=== PATIENT | female | born 1940 | race Caucasian/White ===

== ENCOUNTER → 2016-08-22 | Outpatient (CLI) | payer MEDICARE ==
[~2016-08-22] MED LIST: ACID1TAB PO; ALB0.5V NEB; ALBU2.5V4 IH; ALBU8.5H2 IH; ALBUTEROL INHALER; ALBUTEROL NEBS IH; ALPR0.25 PO; ALPR0.254 PO; ALPR0.5T PO; BARIUM SUSPENSION 2.1% (VANILLA SILQ) 450 ML PO ONE; BUDE10.2 IH; BUDE10.22 IH; BUDE6HFA IH; CATHETER FLUSH 10 ML SYR IV PRN; CODE118S2 PO; CPR500T PO; DIPH25TA65 PO; EZET1TAB15 PO; EZET1TAB29 PO; HYDR-3812 PO; HYOS0.1218 SL; IOHEXOL 350 MG/ML 100 ML (OMNIPAQUE 350) VIAL IV ONE; IPRA3AMP19 IH; L.AC1CAP6 PO; LEVO500T2 PO; LEVO50TA6 PO; LEVO750T39 PO; LEVO750T6 PO; LISI10TA2 PO; LISI2.5T PO; LORA2ORA PO; LVT.05T PO; METF500T4 PO; METFORMIN; METH5TAB86 PO; MORP100S3 PO; MTF500T PO; NS 100 ML (IVPB) BAG IV ONE; OMNICEF; PHENERGAN W/CODEINE; PRCD5U PO; PRD10T PO; PRD20T PO; PREDNISONE; RT-ALBUINH INH; SIME80TA PO; TIOT18CA IH; [UNRECOGNIZED DRUG - OTHER]
--- OUTSIDE RECORDS SUMMARY | 2016-08-22 13:27 | XMS REPORT | Continuity of Care Document ---
Author Author [facility] Organization [facility] Address Unknown Phone Unavailable Care Team Providers Care Hypoid Gear Generator Name Role Phone KERON RONDON DO PCP Insurance Providers Payer Name Policy Number Subscriber Name Relationship Wps Medicare [id number] Mirza Maxwell 18 Self / Same As Patient Self Pay Fin Bulb Planter Review [phone] Mirza Maxwell 18 Self / Same As Patient Advance Directives Directive Response Recorded Date/Time Advance Directives No 10/10/15 3:29pm Health Care Power of Lone Lead Lineman Kendall ТАТЬЯНА CARDOZOELDA MORENO 10/10/15 3:29pm Organ [...] 2 (500MG) TABS IN AM 05/02/11 Tiotropium [place] 18 Mcg 1 Cap Inhalation Daily @ [...] Discharge/Depart Date Attending Provider Discharged Recurring [facility] 02/28/16 10:02am 11:59pm ANIKET DIMAS Registered Clinic [facility] 02/22/16 10:00am RAMOS SWEENEY Registered Clinic [facility] 02/15/16 9:41am RAMOS SWEENEY
--- NOTE | 2016-08-22 14:30 | Diagnostic Imaging Report ---
PROCEDURE: CT chest and abdomen with contrast. TECHNIQUE: Multiple contiguous axial images were obtained through the chest and abdomen after the administration of intravenous contrast. INDICATION: Followup lung cancer. Patient currently on chemotherapy. COMPARISON: CT chest and abdomen of 06/04/2016. CT CHEST: FINDINGS: The dominant right upper lobe spiculated mass has mildly decreased in size now measuring 1.8 x 3.5 cm (previously 3.6 x 2.4 cm when measured similarly). The pleural tag extending to the anterior lateral pleura with nodularity extending to the right lung apex is also unchanged. Spiculated satellite nodule in the right lower lobe has decreased in size now measuring 2.1 x 1.2 cm (previously 2.7 x 2.1 cm). Additional satellite nodule in the posterior right lower lobe has slightly decreased in size now measuring 0.4 cm (previously 0.5 cm). Densely calcified left lower lobe pulmonary granuloma is unchanged. Severe centrilobular emphysema is unchanged. No new pulmonary nodule or mass. No pleural effusion or pneumothorax. No suspicious pleural nodularity. The visualized thyroid is normal. No supraclavicular or axillary lymphadenopathy. Right hilar lymphadenopathy/perihilar mass is decreased in size now measuring 2.1 x 2.1 cm (previously 2.9 x 2.9 cm). The AP window lymph node has also decreased in size now with maximal short axis dimension of 0.7 cm (previously 1.1 cm). No new mediastinal or hilar lymphadenopathy. No juxtaphrenic lymphadenopathy. Heart is normal in size without pericardial effusion. Normal caliber thoracic aorta. IMPRESSION: Disease response within the chest characterized by decreased size of right upper lobe mass and right lower lobe pulmonary nodules. The right hilar mass or confluent lymphadenopathy has also decreased in size. CT ABDOMEN: FINDINGS: No free air or fluid within the abdomen. No evidence of new abdominal metastases. Liver enhances normally without focal mass lesion. Gallbladder and biliary system is normal. The spleen and pancreas are normal. Decreased nodular thickening of the left adrenal gland now measuring 3.1 x 0.8 cm (previously 3.8 x 1.2 cm). Redemonstration of horseshoe kidney. No focal renal mass lesion. No abdominal lymphadenopathy. Normal caliber abdominal aorta. No bowel obstruction in the upper abdomen. No pericolonic inflammatory changes. Atherosclerotic calcifications. No concerning osseous lesions in the abdomen. IMPRESSION: Disease response in the abdomen with decreased soft tissue thickening of the left adrenal gland. Dictated by: Dictated on workstation # [id number]
== END ==
LOC: RAD 13:24
PROVIDERS: ATTEND Nurse Practitioner Adult Health
DX: C34.11 Malignant neoplasm of upper lobe, right bronchus or lung (principal)
CPT/HCPCS: 71260; 74160

== ENCOUNTER 2016-08-29 13:25 | Outpatient (RCR) | payer MEDICARE, OTHER ==
--- OUTSIDE RECORDS SUMMARY | 2016-06-02 10:52 | XMS REPORT | Continuity of Care Document ---
Author Author [facility] Organization [facility] Address Unknown Phone Unavailable Care Team Providers Care Cloth Examiner Machine Name Role Phone KERON RONDON DO PCP Insurance Providers Payer Name Policy Number Subscriber Name Relationship Wps Medicare [id number] Mirza Maxwell 18 Self / Same As Patient Self Pay Fin Corporate Coordinator Review [phone] Mirza Maxwell 18 Self / Same As Patient Advance Directives Directive Response Recorded Date/Time Advance Directives No 10/10/15 3:29pm Health Care Power of Spinner Cap Frame Kendall ТАТЬЯНА CARDOZOELDA MORENO 10/10/15 3:29pm Organ Donor No 10/10/15 3:29pm Problems Active Problems Medical Problem Onset Date Status ACUTE ON CHRONIC RESPIRATORY FAILURE Unknown Acute Closed head injury Unknown Acute Laceration of occipital region of scalp Unknown Acute RUL MASS Unknown Acute Subarachnoid hemorrhage Unknown Acute Medications Current Home Medications Medication Dose Units Route Directions Days/Qty Instructions Start Date Metformin Hcl (Glucophage) 500 Mg 1,000 Mg Oral Daily TAKE 2 (500MG) TABS IN AM 05/02/11 Tiotropium [place] 18 Mcg 1 Cap Inhalation Daily @ 1400 12/16/13 Ezetimibe/Simvastatin 1 Each 1 Tab Oral Bedtime 04/29/15 Metformin Hcl 500 Mg 500 Mg Oral With Evening Meal 05/10/15 Promethazine Hcl/Codeine 118 Ml 2 Tsp Oral Three Times A Day Albuterol Sulfate 2.5 Mg/0.5 Ml 2.5 Mg Inhalation Every 4HRS as needed for Shortness Of Breath 06/28/15 Budesonide/Formoterol Fumarate 10.2 Gm 2 Puff Inhalation Twice A Day 06/28/15 Levothyroxine Sodium 50 Mcg 50 Mcg Oral Daily 06/28/15 Alprazolam 0.25 Mg 0.25 Mg Oral Three Times A Day as needed for Anxiety 06/28/15 Lisinopril 10 Mg 10 Mg Oral Bedtime 06/28/15 Prednisone 20 Mg 20 Mg Oral Daily 7 10/07/15 Past Home Medications Medication Directions Ordered Status [Metformin] , 10/20/07 Discontinued [Omnicef] , 10/20/07 Discontinued [Phenergan W/Codeine] , 10/20/07 Discontinued [Prednisone] , 10/20/07 Discontinued [Albuterol Inhaler] , as needed 10/20/07 Discontinued [Albuterol Nebs] , Inhalation Four Times Daily 10/20/07 Discontinued [Ciprro Inhaler] , 08/19/11 Discontinued Levofloxacin 750 Mg Tablet, 750 Mg Oral Daily 08/19/11 Discontinued Albuterol 8.5 Gm Hfa.aer.ad, 2 Puff Inhalation Every 4HRS as needed for Shortness Of Breath 12/16/13 Discontinued Albuterol Sulfate 0.83 Mg/Ml Solution, 0.83 Mg Inhalation Every 4HRS as needed for Shortness Of Breath 12/16/13 Discontinued Budesonide/Formoterol Fumarate 10.2 Gm Hfa.aer.ad, 2 Puff Inhalation Twice A Day 12/16/13 Discontinued Lisinopril 10 Mg Tablet, 10 Mg Oral Bedtime 12/16/13 Discontinued Levothyroxine Sodium (Levothroid) 50 Mcg Tablet, 50 Mcg Oral Daily 12/16/13 Discontinued Ezetimibe/Simvastatin 1 Each Tablet, 1 Each Oral Daily 12/16/13 Discontinued Albuterol Sulfate/Ipratropium 3 Ml Solution, 3 Ml Inhalation Four Times Daily as needed for Cough 12/16/13 Discontinued Prednisone 20 Mg Tab, 40 Mg Oral Daily for Cough 12/16/13 Discontinued Levothyroxine Sodium 50 Mcg Tablet, 50 Mcg Oral Daily 04/29/15 Discontinued Alprazolam 0.25 Mg Tablet, 0.75 Mg Oral Three Times A Day as needed for Anxiety 04/29/15 Discontinued Diphenhydramine Hcl 25 Mg Tablet, 25 Mg Oral Three Times A Day as needed for Allergy 04/29/15 Discontinued Levofloxacin 750 Mg Tablet, 750 Mg Oral Daily@1100 05/02/15 Discontinued Prednisone 10 Mg Tab, 50 Mg Oral Daily 05/02/15 Discontinued L.acidoph & Paracasei,B.lactis 1 Each Capsule, 1 Each Oral Four Times Daily 05/02/15 Discontinued Prednisone 20 Mg Tab, 20 Mg Oral Daily 05/10/15 Discontinued L. Acidophilus/Bulgaricus 1 Each Tablet, 2 Each Oral Daily 05/10/15 Discontinued Simethicone 80 Mg Tab.chew, 160 Mg Oral Daily as needed for Gas 05/10/15 Discontinued Promethazine Hcl/Codeine 118 Ml Syrup, 2 Tsp Oral Three Times A Day 05/12/15 Discontinued Alprazolam 0.5 Mg Tablet, 0.5 Mg Oral Every 6 Hours 05/12/15 Discontinued Alprazolam 0.25 Mg Tablet, 0.25 Mg Oral Three Times A Day 06/23/15 Discontinued Social History Social History Problem Response Recorded Date/Time Alcohol Use Denies Use 10/10/2015 3:29pm Recreational Drug Use No 10/10/2015 3:29pm Recent Foreign Travel N SEE [place] 12/13/2015 9:57am Sexually Transmitted Disease No 10/10/2015 3:29pm HIV/AIDS No 10/10/2015 3:29pm Do you dip or chew tobacco? No 10/10/2015 3:29pm Hospital Discharge Instructions No hospital discharge instructions. Plan of Care Prescriptions See Medication Section Functional Status No functional status results. Allergies, Adverse Reactions, Alerts Allergen Type Severity Reaction Status Last Updated Benzonatate Allergy Unknown Active 06/27/15 Cephalexin Allergy Unknown Active 06/27/15 Immunizations Name Given Type Date of Pneumonia Vaccine 05/22/12 Historical Date of Influenza Vaccine 05/27/15 Historical Hepatitis A No Historical Hepatitis B No Historical Tetanus Booster (TDap) Unknown Historical Vital Signs Acute Vital Signs Vital Response Date/Time Height 5 ft 4 in Weight 90 lb Body Mass Index 15.4 kg/m^2 Results Laboratory Results Test Name Result Units Flags Reference Collection Date/Time Result Date/ Time Comments White Blood Count 4.9 10^3/uL 4.3-11.0 02/28/2016 10:20am 02/28/2016 10 :31am Red Blood Count 3.40 10^6/uL L 4.35-5.85 02/28/2016 10:02/28/2016 10 :31am Hemoglobin 11.5 G/DL 11.5-16.0 02/28/2016 10:02/28/2016 10:31am Hematocrit 34 % L 35-52 02/28/2016 10:02/28/2016 10:31am Mean Corpuscular Volume 101 FL H 80-99 02/28/2016 10:02/28/2016 10: 31am Mean Corpuscular Hemoglobin 34 PG 25-34 02/28/2016 10:02/28/2016 10:31am Mean Corpuscular Hemoglobin Concent 33 G/DL 32-36 02/28/2016 10: 10:31am Red Cell Distribution Width 14.7 % H 10.0-14.5 02/28/2016 10:2015 10:31am Platelet Count 219 10^3/uL 130-400 02/28/2016 10:02/28/2016 10: 31am Mean Platelet Volume 8.4 FL 7.4-10.4 02/28/2016 10:02/28/2016 10: 31am Neutrophils (%) (Auto) 52 % 42-75 02/28/2016 10:02/28/2016 10: 31am Lymphocytes (%) (Auto) 35 % 12-44 02/28/2016 10:02/28/2016 10: 31am Monocytes (%) (Auto) 11 % 0-12 02/28/2016 10:02/28/2016 10:31am Eosinophils (%) (Auto) 2 % 0-10 02/28/2016 10:02/28/2016 10:31am Basophils (%) (Auto) 1 % 0-10 02/28/2016 10:02/28/2016 10:31am Neutrophils # (Auto) 2.5 X 10^3 1.8-7.8 02/28/2016 10:02/28/2016 10:31am Lymphocytes # (Auto) 1.7 X 10^3 1.0-4.0 02/28/2016 10:02/28/2016 10:31am Monocytes # (Auto) 0.6 X 10^3 0.0-1.0 02/28/2016 10:02/28/2016 10: 31am Eosinophils # (Auto) 0.1 10^3/uL 0.0-0.3 02/28/2016 10:02/28/2016 10:31am Basophils # (Auto) 0.0 10^3/uL 0.0-0.1 02/28/2016 10:02/28/2016 10 :31am Sodium Level 134 MMOL/L L 135-145 02/28/2016 10:02/28/2016 11:06am Potassium Level 4.3 MMOL/L 3.6-5.0 02/28/2016 10:02/28/2016 11: 06am Chloride Level 103 MMOL/L 98-107 02/28/2016 10:02/28/2016 11:06am Carbon Dioxide Level 25 MMOL/L 21-32 02/28/2016 10:02/28/2016 11: 06am Anion Gap 6 MMOL/L 5-14 02/28/2016 10:02/28/2016 11:06am Blood Urea Nitrogen 11 MG/DL 7-18 02/28/2016 10:02/28/2016 11: 06am Creatinine 0.61 MG/DL 0.60-1.30 02/28/2016 10:02/28/2016 11:06am BUN/Creatinine Ratio 18 02/28/2016 10:02/28/2016 11:06am Estimat Glomerular Filtration Rate > 60 02/28/2016 10:2015 11:06am GFR INTERPRETIVE DATA UNITS FOR ESTIMATED GFR (eGFR): mL/min/1.73 M2 REFERENCE RANGE FOR ESTIMATED GFR (eGFR) eGFR NORMAL eGFR >60 MODERATELY DECREASED eGFR 30-59 SEVERLY DECREASED eGFR 15-29 KIDNEY FAILURE <15 (OR DIALYSIS) Glucose Level 68 MG/DL L 70-105 02/28/2016 10:02/28/2016 11:06am Calcium Level 8.9 MG/DL 8.5-10.1 02/28/2016 10:02/28/2016 11:06am Magnesium Level 2.1 MG/DL 1.8-2.4 02/28/2016 10:22am 02/28/2016 11: 06am Total Bilirubin 0.3 MG/DL 0.1-1.0 12/27/2015 11:06am 12/27/2015 11: 41am Alkaline Phosphatase 51 U/L 40-136 12/27/2015 11:06am 12/27/2015 11: 41am Aspartate Amino Transf (AST/SGOT) 15 U/L 5-34 12/27/2015 11:06am 2015 11:41am Alanine Aminotransferase (ALT/SGPT) 8 U/L 0-55 12/27/2015 11:06am 12/26 11:41am Total Protein 6.6 G/DL 6.4-8.2 12/27/2015 11:06am 12/27/2015 11:41am Albumin 3.8 G/DL 3.2-4.5 12/27/2015 11:06am 12/27/2015 11:41am Pending Laboratory Results Test Name Collection Date/Time Procedures No known history of procedures. Encounters Encounter Location Arrival/Admit Date Discharge/Depart Date Attending Provider Discharged Recurring [facility] 02/28/16 10:02am 11:59pm ANIKET DIMAS Registered Clinic [facility] 02/22/16 10:00am RAMOS SWENEEY Registered Clinic [facility] 02/15/16 9:41am RAMOS SWEENEY
[2016-06-02 11:47] LABS: BASOPHILS # (AUTO) 0.1 10^3/uL (0.0-0.1); BASOPHILS % (AUTO) 1 % (0-10); EOSINOPHILS # (AUTO) 0.2 10^3/uL (0.0-0.3); EOSINOPHILS % (AUTO) 4 % (0-10); LYMPHOCYTES # (AUTO) 1.5 X 10^3 (1.0-4.0); LYMPHOCYTES % (AUTO) 27 % (12-44); MEAN CORPUSCULAR HEMOGLOBIN 33 PG (25-34); MEAN CORPUSCULAR HGB CONC 34 G/DL (32-36); MEAN CORPUSCULAR VOLUME 98 FL (80-99); MEAN PLATELET VOLUME 8.8 FL (7.4-10.4); MONOCYTES # (AUTO) 0.8 X 10^3 (0.0-1.0); MONOCYTES % (AUTO) 14 % (0-12); NEUTROPHILS # (AUTO) 3.1 X 10^3 (1.8-7.8); NEUTROPHILS % (AUTO) 54 % (42-75); PLATELET COUNT 300 10^3/uL (130-400); RED BLOOD COUNT 3.78 10^6/uL (4.35-5.85); RED CELL DISTRIBUTION WIDTH 14.2 % (10.0-14.5); WHITE BLOOD COUNT 5.6 10^3/uL (4.3-11.0)
[2016-06-02 12:07] LABS: ALANINE AMINOTRANSFERASE 10 U/L (0-55); ALBUMIN 3.8 G/DL (3.2-4.5); ANION GAP 7 MMOL/L (5-14); ASPARTATE AMINO TRANSFERASE 11 U/L (5-34); BILIRUBIN,TOTAL 0.4 MG/DL (0.1-1.0); BLOOD UREA NITROGEN 8 MG/DL (7-18); BUN/CREATININE RATIO 12; CALCIUM 9.1 MG/DL (8.5-10.1); CARBON DIOXIDE 27 MMOL/L (21-32); CHLORIDE 101 MMOL/L (98-107); CREATININE SERUM 0.65 MG/DL (0.60-1.30); GFR ESTIMATED > 60; GLUCOSE 112 MG/DL (70-105); MAGNESIUM 2.2 MG/DL (1.8-2.4); SODIUM 135 MMOL/L (135-145); TOTAL PROTEIN 7.2 G/DL (6.4-8.2)
[2016-06-12 10:51] LABS: BASOPHILS % (AUTO) 1 % (0-10); EOSINOPHILS # (AUTO) 0.1 10^3/uL (0.0-0.3); EOSINOPHILS % (AUTO) 4 % (0-10); LYMPHOCYTES # (AUTO) 1.3 X 10^3 (1.0-4.0); LYMPHOCYTES % (AUTO) 39 % (12-44); MEAN CORPUSCULAR HEMOGLOBIN 32 PG (25-34); MEAN CORPUSCULAR HGB CONC 32 G/DL (32-36); MEAN CORPUSCULAR VOLUME 98 FL (80-99); MONOCYTES # (AUTO) 0.2 X 10^3 (0.0-1.0); MONOCYTES % (AUTO) 5 % (0-12); NEUTROPHILS # (AUTO) 1.8 X 10^3 (1.8-7.8); NEUTROPHILS % (AUTO) 52 % (42-75); PLATELET COUNT 214 10^3/uL (130-400); RED BLOOD COUNT 3.46 10^6/uL (4.35-5.85); WHITE BLOOD COUNT 3.3 10^3/uL (4.3-11.0)
[2016-06-12 11:18] LABS: ANION GAP 8 MMOL/L (5-14); BLOOD UREA NITROGEN 11 MG/DL (7-18); BUN/CREATININE RATIO 19; CALCIUM 8.8 MG/DL (8.5-10.1); CARBON DIOXIDE 25 MMOL/L (21-32); CHLORIDE 104 MMOL/L (98-107); CREATININE SERUM 0.59 MG/DL (0.60-1.30); GFR ESTIMATED > 60; GLUCOSE 92 MG/DL (70-105); POTASSIUM 4.1 MMOL/L (3.6-5.0); SODIUM 137 MMOL/L (135-145)
[2016-06-19 10:24] LABS: BASOPHILS % (AUTO) 0 % (0-10); EOSINOPHILS % (AUTO) 1 % (0-10); LYMPHOCYTES # (AUTO) 1.4 X 10^3 (1.0-4.0); LYMPHOCYTES % (AUTO) 30 % (12-44); MEAN CORPUSCULAR HEMOGLOBIN 32 PG (25-34); MEAN CORPUSCULAR HGB CONC 33 G/DL (32-36); MEAN CORPUSCULAR VOLUME 97 FL (80-99); MEAN PLATELET VOLUME 7.9 FL (7.4-10.4); MONOCYTES # (AUTO) 0.3 X 10^3 (0.0-1.0); MONOCYTES % (AUTO) 7 % (0-12); NEUTROPHILS # (AUTO) 2.9 X 10^3 (1.8-7.8); NEUTROPHILS % (AUTO) 62 % (42-75); PLATELET COUNT 72 10^3/uL (130-400); RED BLOOD COUNT 3.29 10^6/uL (4.35-5.85); WHITE BLOOD COUNT 4.6 10^3/uL (4.3-11.0)
[2016-06-19 10:49] LABS: ANION GAP 7 MMOL/L (5-14); BLOOD UREA NITROGEN 10 MG/DL (7-18); BUN/CREATININE RATIO 16; CALCIUM 8.9 MG/DL (8.5-10.1); CARBON DIOXIDE 27 MMOL/L (21-32); CHLORIDE 102 MMOL/L (98-107); CREATININE SERUM 0.63 MG/DL (0.60-1.30); GFR ESTIMATED > 60; GLUCOSE 105 MG/DL (70-105); POTASSIUM 4.2 MMOL/L (3.6-5.0); SODIUM 136 MMOL/L (135-145)
[2016-06-26 10:30] LABS: BASOPHILS % (AUTO) 0 % (0-10); EOSINOPHILS # (AUTO) 0.1 10^3/uL (0.0-0.3); EOSINOPHILS % (AUTO) 2 % (0-10); LYMPHOCYTES # (AUTO) 1.4 X 10^3 (1.0-4.0); LYMPHOCYTES % (AUTO) 22 % (12-44); MEAN CORPUSCULAR HEMOGLOBIN 32 PG (25-34); MEAN CORPUSCULAR HGB CONC 33 G/DL (32-36); MEAN CORPUSCULAR VOLUME 98 FL (80-99); MEAN PLATELET VOLUME 8.8 FL (7.4-10.4); MONOCYTES # (AUTO) 0.8 X 10^3 (0.0-1.0); MONOCYTES % (AUTO) 13 % (0-12); NEUTROPHILS # (AUTO) 3.8 X 10^3 (1.8-7.8); NEUTROPHILS % (AUTO) 63 % (42-75); PLATELET COUNT 332 10^3/uL (130-400); RED BLOOD COUNT 3.49 10^6/uL (4.35-5.85); RED CELL DISTRIBUTION WIDTH 15.4 % (10.0-14.5)
[2016-06-26 10:59] LABS: ALANINE AMINOTRANSFERASE 8 U/L (0-55); ALBUMIN 3.7 G/DL (3.2-4.5); ANION GAP 9 MMOL/L (5-14); ASPARTATE AMINO TRANSFERASE 10 U/L (5-34); BILIRUBIN,TOTAL 0.3 MG/DL (0.1-1.0); BLOOD UREA NITROGEN 10 MG/DL (7-18); BUN/CREATININE RATIO 15; CARBON DIOXIDE 24 MMOL/L (21-32); CHLORIDE 102 MMOL/L (98-107); CREATININE SERUM 0.67 MG/DL (0.60-1.30); GFR ESTIMATED > 60; GLUCOSE 86 MG/DL (70-105); SODIUM 135 MMOL/L (135-145); TOTAL PROTEIN 7.3 G/DL (6.4-8.2)
--- NOTE | 2016-06-26 16:29 | Diagnostic Imaging Report ---
PA and lateral views of the chest. INDICATION: Cough. Chronic bronchitis. FINDINGS: The lungs are hyperinflated. There is a calcified granuloma in the left suprahilar region. There is fullness in the right hilum appears increased from the prior exam with suggestion of a corresponding nodule seen on the lateral view which appears to be within the superior segment of the right lower lobe. This is new from 10/10/2015. There is also right upper lobe nodule and scarring that appears similar to the previous exam. There is no significant effusion. The heart size is normal. No pneumothorax. Infusion port similar to the previous study is seen with the tip at the upper SVC level. IMPRESSION: New nodule in the superior segment of the right lower lobe compared to September 2015 exam, better seen on the lateral view. Dictated by: Dictated on workstation # [id number]
[2016-07-03 10:40] LABS: BASOPHILS # (AUTO) 0.1 10^3/uL (0.0-0.1); BASOPHILS % (AUTO) 1 % (0-10); EOSINOPHILS # (AUTO) 0.1 10^3/uL (0.0-0.3); EOSINOPHILS % (AUTO) 2 % (0-10); LYMPHOCYTES # (AUTO) 1.5 X 10^3 (1.0-4.0); LYMPHOCYTES % (AUTO) 28 % (12-44); MEAN CORPUSCULAR HEMOGLOBIN 32 PG (25-34); MEAN CORPUSCULAR HGB CONC 33 G/DL (32-36); MEAN CORPUSCULAR VOLUME 97 FL (80-99); MEAN PLATELET VOLUME 8.3 FL (7.4-10.4); MONOCYTES # (AUTO) 1.1 X 10^3 (0.0-1.0); MONOCYTES % (AUTO) 21 % (0-12); NEUTROPHILS # (AUTO) 2.5 X 10^3 (1.8-7.8); NEUTROPHILS % (AUTO) 47 % (42-75); PLATELET COUNT 442 10^3/uL (130-400); RED BLOOD COUNT 3.47 10^6/uL (4.35-5.85); RED CELL DISTRIBUTION WIDTH 14.7 % (10.0-14.5); WHITE BLOOD COUNT 5.4 10^3/uL (4.3-11.0)
[2016-07-03 11:02] LABS: ANION GAP 8 MMOL/L (5-14); BLOOD UREA NITROGEN 9 MG/DL (7-18); BUN/CREATININE RATIO 15; CALCIUM 9.9 MG/DL (8.5-10.1); CARBON DIOXIDE 25 MMOL/L (21-32); CHLORIDE 102 MMOL/L (98-107); CREATININE SERUM 0.62 MG/DL (0.60-1.30); GFR ESTIMATED > 60; GLUCOSE 90 MG/DL (70-105); POTASSIUM 4.2 MMOL/L (3.6-5.0); SODIUM 135 MMOL/L (135-145)
[2016-07-10 10:19] LABS: BASOPHILS % (AUTO) 0 % (0-10); EOSINOPHILS % (AUTO) 1 % (0-10); LYMPHOCYTES # (AUTO) 1.5 X 10^3 (1.0-4.0); LYMPHOCYTES % (AUTO) 26 % (12-44); MEAN CORPUSCULAR HEMOGLOBIN 32 PG (25-34); MEAN CORPUSCULAR HGB CONC 33 G/DL (32-36); MEAN CORPUSCULAR VOLUME 95 FL (80-99); MONOCYTES # (AUTO) 0.6 X 10^3 (0.0-1.0); MONOCYTES % (AUTO) 10 % (0-12); NEUTROPHILS # (AUTO) 3.6 X 10^3 (1.8-7.8); NEUTROPHILS % (AUTO) 63 % (42-75); PLATELET COUNT 292 10^3/uL (130-400); RED BLOOD COUNT 3.46 10^6/uL (4.35-5.85); RED CELL DISTRIBUTION WIDTH 14.8 % (10.0-14.5); WHITE BLOOD COUNT 5.7 10^3/uL (4.3-11.0)
[2016-07-10 10:47] LABS: ANION GAP 10 MMOL/L (5-14); BLOOD UREA NITROGEN 10 MG/DL (7-18); BUN/CREATININE RATIO 15; CALCIUM 8.8 MG/DL (8.5-10.1); CARBON DIOXIDE 24 MMOL/L (21-32); CHLORIDE 101 MMOL/L (98-107); CREATININE SERUM 0.65 MG/DL (0.60-1.30); GFR ESTIMATED > 60; GLUCOSE 123 MG/DL (70-105); POTASSIUM 3.9 MMOL/L (3.6-5.0); SODIUM 135 MMOL/L (135-145)
[2016-07-17 10:20] LABS: BASOPHILS % (AUTO) 1 % (0-10); EOSINOPHILS % (AUTO) 1 % (0-10); LYMPHOCYTES # (AUTO) 1.6 X 10^3 (1.0-4.0); LYMPHOCYTES % (AUTO) 25 % (12-44); MEAN CORPUSCULAR HEMOGLOBIN 31 PG (25-34); MEAN CORPUSCULAR HGB CONC 32 G/DL (32-36); MEAN CORPUSCULAR VOLUME 96 FL (80-99); MEAN PLATELET VOLUME 8.6 FL (7.4-10.4); MONOCYTES # (AUTO) 0.7 X 10^3 (0.0-1.0); MONOCYTES % (AUTO) 11 % (0-12); NEUTROPHILS # (AUTO) 3.9 X 10^3 (1.8-7.8); NEUTROPHILS % (AUTO) 63 % (42-75); PLATELET COUNT 183 10^3/uL (130-400); RED BLOOD COUNT 3.69 10^6/uL (4.35-5.85); RED CELL DISTRIBUTION WIDTH 15.7 % (10.0-14.5); WHITE BLOOD COUNT 6.2 10^3/uL (4.3-11.0)
[2016-07-17 10:58] LABS: BILIRUBIN,URINE NEGATIVE (NEGATIVE); KETONES,URINE NEGATIVE (NEGATIVE); LEUKOCYTE ESTERASE ,URINE NEGATIVE (NEGATIVE); NITRITE,URINE NEGATIVE (NEGATIVE); PH,URINE 6.5 (5-9); PROTEIN,URINE NEGATIVE (NEGATIVE); UROBILINOGEN,URINE NORMAL (NORMAL)
[2016-07-17 11:16] LABS: SQUAMOUS EPITHELIAL CELL,UR RARE /HPF
[2016-07-17 11:23] LABS: ANION GAP 11 MMOL/L (5-14); BLOOD UREA NITROGEN 9 MG/DL (7-18); BUN/CREATININE RATIO 14; CARBON DIOXIDE 23 MMOL/L (21-32); CHLORIDE 102 MMOL/L (98-107); CREATININE SERUM 0.63 MG/DL (0.60-1.30); GFR ESTIMATED > 60; GLUCOSE 81 MG/DL (70-105); POTASSIUM 4.1 MMOL/L (3.6-5.0); SODIUM 136 MMOL/L (135-145)
[2016-07-24 11:34] LABS: BASOPHILS % (AUTO) 0 % (0-10); EOSINOPHILS # (AUTO) 0.2 10^3/uL (0.0-0.3); EOSINOPHILS % (AUTO) 2 % (0-10); LYMPHOCYTES # (AUTO) 1.7 X 10^3 (1.0-4.0); LYMPHOCYTES % (AUTO) 19 % (12-44); MEAN CORPUSCULAR HEMOGLOBIN 31 PG (25-34); MEAN CORPUSCULAR HGB CONC 33 G/DL (32-36); MEAN CORPUSCULAR VOLUME 96 FL (80-99); MEAN PLATELET VOLUME 8.5 FL (7.4-10.4); MONOCYTES % (AUTO) 11 % (0-12); NEUTROPHILS # (AUTO) 6.2 X 10^3 (1.8-7.8); NEUTROPHILS % (AUTO) 68 % (42-75); PLATELET COUNT 513 10^3/uL (130-400); RED BLOOD COUNT 3.49 10^6/uL (4.35-5.85); RED CELL DISTRIBUTION WIDTH 16.5 % (10.0-14.5); WHITE BLOOD COUNT 9.1 10^3/uL (4.3-11.0)
[2016-07-24 12:06] LABS: ALANINE AMINOTRANSFERASE 6 U/L (0-55); ALBUMIN 3.7 G/DL (3.2-4.5); ANION GAP 10 MMOL/L (5-14); ASPARTATE AMINO TRANSFERASE 15 U/L (5-34); BILIRUBIN,TOTAL 0.3 MG/DL (0.1-1.0); BLOOD UREA NITROGEN 7 MG/DL (7-18); BUN/CREATININE RATIO 11; CALCIUM 8.8 MG/DL (8.5-10.1); CARBON DIOXIDE 22 MMOL/L (21-32); CHLORIDE 100 MMOL/L (98-107); CREATININE SERUM 0.63 MG/DL (0.60-1.30); GFR ESTIMATED > 60; GLUCOSE 116 MG/DL (70-105); POTASSIUM 4.1 MMOL/L (3.6-5.0); SODIUM 132 MMOL/L (135-145); TOTAL PROTEIN 7.1 G/DL (6.4-8.2)
--- NOTE | 2016-07-24 13:02 | Diagnostic Imaging Report ---
EXAMINATION: PA and lateral views of the chest. INDICATION: Lung cancer with brain metastasis. FINDINGS: There is a stable left suprahilar calcified granuloma. The lungs are hyperinflated. There is stable fullness in the right hilum and suggestion of a 2 cm nodule in the superior segment of the right lower lobe, better seen on the lateral view. Chronic mild consolidation in the right upper lobe is seen. No significant effusion. The heart size is normal. An infusion port is noted. IMPRESSION: There is a 2 cm nodule in the superior segment of the right lower lobe, better seen on the lateral view. Dictated by: Dictated on workstation # [id number]
[2016-07-31 11:16] LABS: BASOPHILS % (AUTO) 1 % (0-10); EOSINOPHILS # (AUTO) 0.1 10^3/uL (0.0-0.3); EOSINOPHILS % (AUTO) 1 % (0-10); LYMPHOCYTES # (AUTO) 1.8 X 10^3 (1.0-4.0); LYMPHOCYTES % (AUTO) 31 % (12-44); MEAN CORPUSCULAR HEMOGLOBIN 31 PG (25-34); MEAN CORPUSCULAR HGB CONC 32 G/DL (32-36); MEAN CORPUSCULAR VOLUME 96 FL (80-99); MONOCYTES # (AUTO) 0.9 X 10^3 (0.0-1.0); MONOCYTES % (AUTO) 15 % (0-12); NEUTROPHILS # (AUTO) 2.9 X 10^3 (1.8-7.8); NEUTROPHILS % (AUTO) 52 % (42-75); PLATELET COUNT 356 10^3/uL (130-400); RED BLOOD COUNT 3.42 10^6/uL (4.35-5.85); RED CELL DISTRIBUTION WIDTH 16.3 % (10.0-14.5); WHITE BLOOD COUNT 5.6 10^3/uL (4.3-11.0)
[2016-07-31 11:39] LABS: ANION GAP 10 MMOL/L (5-14); BLOOD UREA NITROGEN 11 MG/DL (7-18); BUN/CREATININE RATIO 18; CALCIUM 8.9 MG/DL (8.5-10.1); CARBON DIOXIDE 24 MMOL/L (21-32); CHLORIDE 101 MMOL/L (98-107); CREATININE SERUM 0.62 MG/DL (0.60-1.30); GFR ESTIMATED > 60; POTASSIUM 4.2 MMOL/L (3.6-5.0); SODIUM 135 MMOL/L (135-145)
[2016-07-31 11:43] LABS: GLUCOSE 56 MG/DL (70-105)
[2016-08-07 10:38] LABS: BASOPHILS % (AUTO) 1 % (0-10); EOSINOPHILS % (AUTO) 1 % (0-10); LYMPHOCYTES # (AUTO) 1.4 X 10^3 (1.0-4.0); LYMPHOCYTES % (AUTO) 24 % (12-44); MEAN CORPUSCULAR HEMOGLOBIN 31 PG (25-34); MEAN CORPUSCULAR HGB CONC 33 G/DL (32-36); MEAN CORPUSCULAR VOLUME 96 FL (80-99); MEAN PLATELET VOLUME 8.8 FL (7.4-10.4); MONOCYTES # (AUTO) 0.7 X 10^3 (0.0-1.0); MONOCYTES % (AUTO) 12 % (0-12); NEUTROPHILS # (AUTO) 3.6 X 10^3 (1.8-7.8); NEUTROPHILS % (AUTO) 63 % (42-75); PLATELET COUNT 168 10^3/uL (130-400); RED BLOOD COUNT 3.49 10^6/uL (4.35-5.85); WHITE BLOOD COUNT 5.8 10^3/uL (4.3-11.0)
[2016-08-07 11:05] LABS: ANION GAP 10 MMOL/L (5-14); BLOOD UREA NITROGEN 10 MG/DL (7-18); BUN/CREATININE RATIO 16; CALCIUM 8.8 MG/DL (8.5-10.1); CARBON DIOXIDE 25 MMOL/L (21-32); CHLORIDE 102 MMOL/L (98-107); CREATININE SERUM 0.63 MG/DL (0.60-1.30); GFR ESTIMATED > 60; GLUCOSE 88 MG/DL (70-105); POTASSIUM 4.3 MMOL/L (3.6-5.0); SODIUM 137 MMOL/L (135-145)
[2016-08-15 13:40] LABS: BASOPHILS % (AUTO) 1 % (0-10); EOSINOPHILS # (AUTO) 0.1 10^3/uL (0.0-0.3); EOSINOPHILS % (AUTO) 2 % (0-10); LYMPHOCYTES # (AUTO) 1.1 X 10^3 (1.0-4.0); LYMPHOCYTES % (AUTO) 14 % (12-44); MEAN CORPUSCULAR HEMOGLOBIN 31 PG (25-34); MEAN CORPUSCULAR HGB CONC 32 G/DL (32-36); MEAN CORPUSCULAR VOLUME 97 FL (80-99); MEAN PLATELET VOLUME 8.9 FL (7.4-10.4); MONOCYTES % (AUTO) 12 % (0-12); NEUTROPHILS # (AUTO) 5.9 X 10^3 (1.8-7.8); NEUTROPHILS % (AUTO) 72 % (42-75); PLATELET COUNT 427 10^3/uL (130-400); RED BLOOD COUNT 3.43 10^6/uL (4.35-5.85); RED CELL DISTRIBUTION WIDTH 17.7 % (10.0-14.5); WHITE BLOOD COUNT 8.2 10^3/uL (4.3-11.0)
--- NOTE | 2016-08-15 13:50 | Diagnostic Imaging Report ---
INDICATION: Lung cancer and dyspnea. TECHNIQUE: PA and lateral views of the chest were obtained. COMPARISON: 07/24/2016. FINDINGS: The heart size remains within normal limits. There has been slight worsening of the abnormal parenchymal density in the upper lobe of the right lung. An irregular nodule focus in the superior segment of the right lower lobe has remained stable. A calcified nodule in the superior aspect of the left hilum has not significantly changed. No pneumothorax or significant pleural fluid is identified. The right anterior chest wall port remains in stable position. IMPRESSION: Minimal change compared to the previous study. There may be slight increased density involving the right upper lobe abnormality. This may represent a combination of residual mass and/or infiltrate. Dictated by: Dictated on workstation # [id number]
[2016-08-15 13:55] LABS: ALANINE AMINOTRANSFERASE 12 U/L (0-55); ALBUMIN 3.6 G/DL (3.2-4.5); ANION GAP 11 MMOL/L (5-14); ASPARTATE AMINO TRANSFERASE 18 U/L (5-34); BILIRUBIN,TOTAL 0.2 MG/DL (0.1-1.0); BLOOD UREA NITROGEN 10 MG/DL (7-18); BUN/CREATININE RATIO 14; CALCIUM 8.8 MG/DL (8.5-10.1); CARBON DIOXIDE 23 MMOL/L (21-32); CHLORIDE 100 MMOL/L (98-107); CREATININE SERUM 0.69 MG/DL (0.60-1.30); GFR ESTIMATED > 60; GLUCOSE 109 MG/DL (70-105); SODIUM 134 MMOL/L (135-145)
[~2016-08-29] VITALS: Ht 162.6 cm; Wt 43.5 kg
[~2016-08-29 13:25] MED LIST changes: -BARIUM SUSPENSION 2.1% (VANILLA SILQ) 450 ML PO ONE; -BUDE10.2 IH; -CATHETER FLUSH 10 ML SYR IV PRN; +GEMCITABINE HCL (GENERIC) 1,000 MG, GEMCITABINE HCL (GENERIC) 100 MG in NS (IVPB) CANCE... IV SCH; +GEMCITABINE HCL IV SCH; -HYDR-3812 PO; -HYOS0.1218 SL; -IOHEXOL 350 MG/ML 100 ML (OMNIPAQUE 350) VIAL IV ONE; -LEVO500T2 PO; -LISI2.5T PO; -LORA2ORA PO; -METH5TAB86 PO; -MORP100S3 PO; -NS 100 ML (IVPB) BAG IV ONE; +NS IV 1000 ML (CANCER CTR) 1,000 ML ONE; +NS IV 500 ML (CANCER CENTER) IV SCH; +NS IV SCH; +ONDANSETRON 16 MG, DEXAMETHASONE 10 MG/NS 50 ML IVPB IV SCH; -RT-ALBUINH INH
== END 2016-08-31 | disposition home or self-care (01) ==
LOC: ONC 13:25
PROVIDERS: ATTEND Internal Medicine Hematology & Oncology
DX: Z51.11 Encounter for antineoplastic chemotherapy (principal); C34.11 Malignant neoplasm of upper lobe, right bronchus or lung; C79.31 Secondary malignant neoplasm of brain; J44.9 Chronic obstructive pulmonary disease, unspecified; E11.9 Type 2 diabetes mellitus without complications; I10 Essential (primary) hypertension; E78.5 Hyperlipidemia, unspecified; E03.9 Hypothyroidism, unspecified; F17.210 Nicotine dependence, cigarettes, uncomplicated; Z79.899 Other long term (current) drug therapy
CPT/HCPCS: 36415; 36591; 71020; 80048; 80053; 81000; 83735; 85025; 96360; 96361; 96375; 96413; 99213

== ENCOUNTER 2016-09-26 16:43 | Inpatient (IN) | payer MEDICARE ==
[~2016-09-26] VITALS: Ht 162.6 cm; Wt 47.2 kg
[2016-09-26 11:00] VITALS: BP 126/56
[~2016-09-26 16:43] MED LIST changes: -GEMCITABINE HCL (GENERIC) 1,000 MG, GEMCITABINE HCL (GENERIC) 100 MG in NS (IVPB) CANCE... IV SCH; -GEMCITABINE HCL IV SCH; -NS IV 1000 ML (CANCER CTR) 1,000 ML ONE; -NS IV 500 ML (CANCER CENTER) IV SCH; -NS IV SCH; -ONDANSETRON 16 MG, DEXAMETHASONE 10 MG/NS 50 ML IVPB IV SCH
--- OUTSIDE RECORDS SUMMARY | 2016-09-26 16:49 | XMS REPORT | Continuity of Care Document ---
Author Author [facility] Organization [facility] Address Unknown Phone Unavailable Care Team Providers Care Tool Filer Hand Name Role Phone KERON RONDON DO PCP Insurance Providers Payer Name Policy Number Subscriber Name Relationship Wps Medicare [id number] Mirza Maxwell 18 Self / Same As Patient Self Pay Fin Acute Dialysis Nurse Review [phone] Mirza Maxwell 18 Self / Same As Patient Advance Directives Directive Response Recorded Date/Time Advance Directives No 10/10/15 3:29pm Health Care Power of Mushroom Picker Kendall ТАТЬЯНА CARDOZOELDA MORENO 10/10/15 3:29pm Organ [...] 2 (500MG) TABS IN AM 05/02/11 Tiotropium [place] 18 Mcg 1 Cap Inhalation Daily @ [...] Discharge/Depart Date Attending Provider Discharged Recurring [facility] 02/28/16 10:02am 11:59pm ANIKET DIMAS Registered Clinic [facility] 02/22/16 10:00am RAMOS SWEENEY Registered Clinic [facility] 02/15/16 9:41am RAMOS SWEENEY
[2016-09-26 17:21] LABS: BASOPHILS % (AUTO) 0 % (0-10); EOSINOPHILS % (AUTO) 0 % (0-10); LYMPHOCYTES # (AUTO) 0.5 X 10^3 (1.0-4.0); LYMPHOCYTES % (AUTO) 6 % (12-44); MEAN CORPUSCULAR HEMOGLOBIN 30 PG (25-34); MEAN CORPUSCULAR HGB CONC 32 G/DL (32-36); MEAN CORPUSCULAR VOLUME 93 FL (80-99); MEAN PLATELET VOLUME 9.2 FL (7.4-10.4); MONOCYTES # (AUTO) 0.2 X 10^3 (0.0-1.0); MONOCYTES % (AUTO) 2 % (0-12); NEUTROPHILS # (AUTO) 6.9 X 10^3 (1.8-7.8); NEUTROPHILS % (AUTO) 92 % (42-75); PLATELET COUNT 331 10^3/uL (130-400); RED BLOOD COUNT 3.33 10^6/uL (4.35-5.85); RED CELL DISTRIBUTION WIDTH 17.1 % (10.0-14.5); WHITE BLOOD COUNT 7.5 10^3/uL (4.3-11.0)
[2016-09-26 17:31] LABS: PROTHROMBIN TIME PATIENT 12.8 SEC (12.2-14.7)
[2016-09-26 17:43] LABS: ALANINE AMINOTRANSFERASE 10 U/L (0-55); ALBUMIN 3.3 G/DL (3.2-4.5); ANION GAP 9 MMOL/L (5-14); ASPARTATE AMINO TRANSFERASE 12 U/L (5-34); BILIRUBIN,TOTAL 0.4 MG/DL (0.1-1.0); BLOOD UREA NITROGEN 13 MG/DL (7-18); BUN/CREATININE RATIO 18; CALCIUM 8.5 MG/DL (8.5-10.1); CARBON DIOXIDE 25 MMOL/L (21-32); CHLORIDE 97 MMOL/L (98-107); CREATININE SERUM 0.72 MG/DL (0.60-1.30); GFR ESTIMATED > 60; GLUCOSE 119 MG/DL (70-105); POTASSIUM 3.8 MMOL/L (3.6-5.0); SODIUM 131 MMOL/L (135-145); TOTAL PROTEIN 6.2 G/DL (6.4-8.2)
[2016-09-26] MEDS ORDERED: NS IV 1000 ML 1,000 ML IV ONE (17:43)
[2016-09-26 17:44] LABS: LYMPHOCYTES % (MANUAL) 13 %; NEUTROPHILS % (MANUAL) 83 %
[2016-09-26] MEDS ORDERED: ACETAMINOPHEN 325 MG TABLET/CAPLET (TYLENOL) PO ONE (17:45)
--- NOTE | 2016-09-26 17:47 | Diagnostic Imaging Report ---
INDICATION: History of lung cancer, has been feeling weak since this afternoon. COMPARISON STUDY: Chest from August 15. EXAM: CT scan from August 22. FINDINGS: Since the previous scans the right hilar mass and surrounding infiltrates have increased. Infiltrates have also developed in the left base. A right upper lobe nodule is again identified. The heart size and vascularity are normal. There is a small left pleural effusion. IMPRESSION: Increasing size of the right hilar mass with increasing infiltrates around this. There has been interval development of infiltrates in the left base and a small left effusion. A right upper lobe mass is again identified. Dictated by: Dictated on workstation # [id number]
[2016-09-26] MEDS ORDERED: methylPREDNISolone 125 MG (Solu-MEDROL) VIAL IV STA (18:06)
[2016-09-26] MEDS ORDERED: LEVOFLOXACIN 750 MG/150 ML IV 150 ML IV STA (18:06)
[2016-09-26] MEDS ORDERED: DEXAMETHASONE 4 MG/ML SDV (DECADRON) IH ONE (18:15)
[2016-09-26] MEDS ORDERED: RT-ALBUTEROL/IPRATROPIUM 3 ML (DUONEB) VIAL INH ONE (18:15)
[2016-09-26] MEDS ORDERED: DEXAMETHASONE PF 10 MG/ML (DECADRON) VIAL ONE (18:17)
--- NOTE | 2016-09-26 18:53 | ED General ---
General Chief Complaint: Neurological Problems Stated Complaint: SEPSIS,PNEUMONIA,LUNG CANCER ON CHEMO,DEHYDRATION Nursing Triage Note: TO ED PER EMS. PATIENT IS LUNG CA PATIENT WITH COPD RECEIVED CHEMO YESTERDAY. TODAY SHE IS WEAK. Nursing Sepsis Screen: No Definite Risk Source of Information: Patient, Family (MULTIPLE FAMILY MEMBERS HERE WITH PT), Old Records History of Present Illness Time Seen by Provider: 17:55 Initial Comments ASSUMED CARE--ALL STUDIES BACK PT WITH KNOWN LUNG CANCER WITH BRAIN METS AND IS CURRENTLY ON CHEMO--LAST TREATMENT WAS YESTERDAY BP WAS LOW YESTERDAY AND WAS THOUGHT TO BE DEHYDRATED, SO RECEIVED 2 LITERS OF FLUIDS WELL CHEMO YESTERDAY PT STATES TODAY SHE HAS BEEN TOO WEAK TO STAND AND HAS HAD INCREASED SHORTNESS OF BREATH AND SUBJECTIVE FEVER NO SIGNIFICANT COUGH NO CHEST PAIN NO NAUSEA/VOMITING NO SWELLING IN LEGS/ FEET OR PAIN IN CALVES PT WAS TREATED A COUPLE OF WEEKS AGO FOR A "RESPIRATORY INFECTION" WITH OMNICEF AND PREDNISONE--FINISHED MEDICATIONS A FEW DAYS AGO PT HAS NOT HAD A NEBULIZER TREATMENT SINCE YESTERDAY PT CONTINUES TO SMOKE PT IS DNR/DNI PCP: DR. RONDON ONCOLOGY: DR. DIMAS Allergies and Home Medications Allergies Coded Allergies: benzonatate (Verified Allergy, Unknown, 06/27/15) cephalexin (Verified Allergy, Unknown, 06/27/15) Home Medications Albuterol Sulfate 2.5 Mg/0.5 Ml Vial.neb 2.5 MG IH Q4H PRN PRN SHORTNESS OF BREATH (Reported) Alprazolam 0.25 Mg Tablet 0.25 MG PO TID PRN PRN ANXIETY (Reported) Budesonide/Formoterol Fumarate 10.2 Gm Hfa.aer.ad 2 PUFF IH BID (Reported) Ezetimibe/Simvastatin 1 Each Tablet 1 TAB PO HS (Reported) Levothyroxine Sodium 50 Mcg Tablet 50 MCG PO DAILY (Reported) Lisinopril 10 Mg Tablet 10 MG PO HS (Reported) Metformin HCl 500 Mg Tablet 500 MG PO WITH EVENING MEAL (Reported) Metformin Hcl 500 Mg Tablet 1,000 MG PO DAILY (Reported) TAKE 2 (500MG) TABS IN AM Promethazine HCl/Codeine 118 Ml Syrup 2 TSP PO TID (Reported) Tiotropium [place] 18 Mcg Cap.w.dev 1 CAP IH DAILY @ 1400 (Reported) Constitutional: see HPI fever malaise weakness EENTM: no symptoms reported Respiratory: see HPI cough dyspnea on exertion short of breath Cardiovascular: no symptoms reportedNo chest pain, No edema, No palpitations, No syncope, No vascular heart diseas Gastrointestinal: no symptoms reported Genitourinary: no symptoms reported Musculoskeletal: no symptoms reported Skin: no symptoms reported Psychiatric/Neurological: No Symptoms Reported Hematologic/Lymphatic: No Symptoms Reported Immunological/Allergic: see HPI Past Dbzmzuj-Hontur-Rslnfm Hx Patient Social History Alcohol Use: Denies Use Recreational Drug Use: No Smoking Status: Current Everyday Smoker (1 PPD) Type Used: Cigarettes Recent Foreign Travel: No Contact w/Someone Who Travel: No Recent Infectious Disease Expo: No Recent Hopitalizations: No Immunizations Up To Date Tetanus Booster (TDap): Unknown PED Vaccines UTD: No Date of Pneumonia Vaccine: May 22, 2012 Date of Influenza Vaccine: May 27, 2016 Surgeries HX Surgeries: Yes (C/S X2, PORT PLACEMENT; CARDIAC CATH-NO INTERVENTION; CATARACTS) Surgeries: Section, Eye Surgery Respiratory Hx Respiratory Disorders: Yes (CHRONIC RESPIRATORY FAILURE; LUNG CANCER WITH BRAIN METS--DX 05/2015) Respiratory Disorders: Chronic Bronchitis, COPD Cardiovascular Hx Cardiac Disorders: Yes (TAKES LISINOPRIL FOR KIDNEYS, HEART CATH 6YRS AGO- NO INTERVENTION) Cardiac Disorders: High Cholesterol, Hypertension Neurological Hx Neurological Disorders: Yes (BRAIN METS FROM LUNG CANCER) Reproductive System Hx Reproductive Disorders: No Sexually Transmitted Disease: No HIV/AIDS: No Female Reproductive Disorders: Denies VAMP LINER History: Menopausal Genitourinary Hx Genitourinary Disorders: No Gastrointestinal Hx Gastrointestinal Disorders: Yes Gastrointestinal Disorders: Chronic Constipation Musculoskeletal Hx Musculoskeletal Disorders: Yes (SPINAL STENOSIS-INJECTIONS HELPED PAIN IN PAST) Musculoskeletal Disorders: Degenerate Disk Disease, Arthritis, Chronic Back Pain Endocrine Hx Endocrine Disorders: Yes Endocrine Disorders: Hypothyroidsim, Diabetes, Non-Insulin dep HEENT HX ENT Disorders: Yes (CATARCT SURGERY, READING GLASSES) HEENT Disorders: Cataract Loss of Vision: Left Hearing Impairment: Denies Cancer Hx Cancer: Yes (HAS METS TO BRAIN-10 RADIATION [place] AND CURRENTLY ON CHEMO OF 09/26/16) Cancer: Lung Psychosocial Hx Psychiatric Problems: Yes Behavioral Health Disorders: Anxiety Integumentary HX Skin/Integumentary Disorder: No Blood Transfusions Hx Blood Disorders: No Hx of Blood Transfusion YES--POST DELIVERY Adverse Reaction to a Blood Tr: No (HAD BLOOD WITH FIRST CHILD-NO REACTION) Physical Exam Vital Signs Vital Sign - Last 12Hours 09/26/16 16:46 Temp 101.0 Pulse 140 Resp 18 B/P 104/63 Pulse Ox 94 O2 Delivery Nasal Cannula O2 Flow Rate 2 Capillary Refill : Less Than 3 Seconds General Appearance: No Apparent Distress Chronically ill Cachetic Other ( LETHARGIC; SHIVERING; REEKS OF CIGARETTES) HEENT: PERRL/EOMI Other (DRY ORAL MUCOSA) Neck: Full Range of Motion Normal Inspection Non Tender Supple Respiratory: No Accessory Muscle Use No Respiratory Distress Decreased Breath Sounds (IN ALL LUNG KNIGHT) Wheezing (EXPIRATORY WHEEZING ON RIGHT) Cardiovascular: No Edema No JVD No Murmur Normal Peripheral Pulses Tachycardia Gastrointestinal: Non Tender Soft Back: No CVA Tenderness Extremity: Normal Range of Motion Non Tender No Calf Tenderness No Pedal Edema Neurologic/Psychiatric: No Motor/Sensory Deficits ski topper II-XII Norm as Tested Other (LETHARGIC/DROWSY, BUT ORIENTED X 4) Skin: Warm/Dry Pallor Progress/Results/Core Measures Results/Orders Lab Results Laboratory Tests Test 09/26/16 17:07 Range/Units Activated Partial Thromboplast Time 29 24-35 SEC Alanine Aminotransferase (ALT/SGPT) 10 0-55 U/L Albumin 3.3 3.2-4.5 G/DL Alkaline Phosphatase 66 40-136 U/L Anion Gap 9 5-14 MMOL/L Aspartate Amino Transf (AST/SGOT) 12 5-34 U/L BUN/Creatinine Ratio 18 Basophils # (Auto) 0.0 0.0-0.1 10^3/uL Basophils (%) (Auto) 0 0-10 % Blood Morphology Comment NORMAL Blood Urea Nitrogen 13 7-18 MG/DL Calcium Level 8.5 8.5-10.1 MG/DL Carbon Dioxide Level 25 21-32 MMOL/L Chloride Level 97 L 98-107 MMOL/L Creatinine 0.72 0.60-1.30 MG/DL Eosinophils # (Auto) 0.0 0.0-0.3 10^3/uL Eosinophils (%) (Auto) 0 0-10 % Estimat Glomerular Filtration Rate > 60 Glucose Level 119 H 70-105 MG/DL Hematocrit 31 L 35-52 % Hemoglobin 10.0 L 11.5-16.0 G/DL INR Comment 1.0 0.8-1.4 Lactic Acid Level 1.3 0.5-2.0 MMOL/L Lymphocytes # (Auto) 0.5 L 1.0-4.0 X 10^3 Lymphocytes % (Manual) 13 % Lymphocytes (%) (Auto) 6 L 12-44 % Mean Corpuscular Hemoglobin 30 25-34 PG Mean Corpuscular Hemoglobin Concent 32 32-36 G/DL Mean Corpuscular Volume 93 80-99 FL Mean Platelet Volume 9.2 7.4-10.4 FL Monocytes # (Auto) 0.2 0.0-1.0 X 10^3 Monocytes % (Manual) 4 % Monocytes (%) (Auto) 2 0-12 % Neutrophils # (Auto) 6.9 1.8-7.8 X 10^3 Neutrophils % (Manual) 83 % Neutrophils (%) (Auto) 92 H 42-75 % Platelet Count 331 130-400 10^3/uL Potassium Level 3.8 3.6-5.0 MMOL/L Prothrombin Time 12.8 12.2-14.7 SEC Red Blood Count 3.33 L 4.35-5.85 10^6/uL Red Cell Distribution Width 17.1 H 10.0-14.5 % Sodium Level 131 L 135-145 MMOL/L Total Bilirubin 0.4 0.1-1.0 MG/DL Total Protein 6.2 L 6.4-8.2 G/DL White Blood Count 7.5 4.3-11.0 10^3/uL Micro Results Microbiology 09/26/16 Influenza Types A,B Antigen (BOB) - Final, Complete My Orders Orders-MADDISON JUAREZ DO Albuterol/Ipra Inhalation Soln (Duoneb I (09/26/16 18:15) Dexamethasone Injection (Decadron Inject (09/26/16 18:15) Rt Request For Service (09/26/16 18:06) Levofloxacin 750 Mg/150 Ml Iv (Levaquin (09/26/16 18:06) Methylprednisolone Sod Succ (Solu-Medrol (09/26/16 18:06) Svn Sm Volume Nebulizer Rt-Rfs (09/26/16 18:06) Dexamethasone Pf Injection (Decadron Pf (09/26/16 18:17) Medications Given in ED Current Medications Medications Dose Ordered Sig/Fidel Route Start Time Stop Time Status Last Admin Dose Admin Acetaminophen 650 mg 650 mg ONCE ONCE PO 09/26/16 17:45 09/26/16 17:46 DC 09/26/16 17:48 650 MG Sodium Chloride 1,000 ml @ 0 mls/hr Q0M ONCE IV 09/26/16 17:43 09/26/16 17:44 DC 09/26/16 17:48 1,000 MLS/HR Vital Signs/I&O Vital Sign - Last 12Hours 09/26/16 09/26/16 09/26/16 16:46 16:46 18:25 Temp 101.0 Pulse 140 Resp 18 B/P 104/63 Pulse Ox 94 98 O2 Delivery Nasal Cannula Nasal Cannula O2 Flow Rate 2 2 2 Blood Pressure Mean: 77 Progress Note : Progress Note IMPROVED AERATION AFTER NEB TREATMENT NO DETERIORATION IN PT'S CONDITION DURING ER STAY--O2 SATS REMAINED IN MID TO UPPER 90'S ON O2 2L/NC Diagnostic Imaging Comments CXR--BILATERAL LUNG MASSES, INCREASING INFILTRATE AROUND ENLARGING MASS IN RIGHT PERIHILAR AREA, LLL INFILTRATE, PER RADIOLOGIST REPORT @ 1855 Reviewed: Reviewed by Me Departure Communication Progress Notes 1804--PAGING DR. DIMAS 1804--SPOKE WITH DR. RONDON, ACCEPTS PT FOR ADMIT 1812--PAGING DR. DIMAS 1815--CALLED DR. DIMAS'S CELL, NO ANSWER, MESSAGE LEFT 1844--SPOKE WITH DR. CORBETT, SHE WILL INFORM DR. DIMAS OF PT'S ADMIT IN AM--SHE IS NOT AWARE THAT HE IS UNAVAILABLE FOR ANY REASON. Impression Impression: Primary Impression: Sepsis Additional Impressions: PNEUMONIA-FAILURE OF OUTPATIENT THERAPY Metastatic primary lung cancer Dehydration COPD WITH CHRONIC RESPIRATORY FAILURE Chronic anemia Disposition: ADMITTED INPATIENT Condition: Stable Decision to Admit Reason: Admit from ER (General) Decision to Admit/Date: Sep 26, 2016 Time/Decision to Admit Time: 18:05 Departure-Patient Inst. Referrals: KERON RONDON DO (PCP/Family) Primary Care Physician MADDISON JUAREZ DO Sep 26, 2016 18:53
[2016-09-26 19:20] VITALS: BP 116/57
[2016-09-26] MEDS ORDERED: IBUPROFEN 800 MG (MOTRIN) TAB PO PRN (19:45)
[2016-09-26] MEDS ORDERED: ACETAMINOPHEN 500 MG TAB (TYLENOL) PO PRN (19:45)
[2016-09-26] MEDS ORDERED: CATHETER FLUSH 10 ML SYR IV PRN (19:45)
[2016-09-26] MEDS ORDERED: VANCOMYCIN 1 GM/NS 250 ML IVPB IV NR ×2 (20:00)
[2016-09-26 21:00] VITALS: BP 107/58
[2016-09-26] MEDS ORDERED: RT-ALBUTEROL SULF 2.5 MG/3 ML PRE-MIX VIAL INH PRN (21:00)
[2016-09-26 22:00] VITALS: BP 102/51
[2016-09-26] MEDS: CEFEPIME 2 GM/NS 50 ML IVPB IV SCH ×2 (22:14)
[2016-09-26] MEDS: inSUlin (REGULAR) HUMAN 1 UNIT/0.01 ML (CHARGE PER UNIT) SC SCH (22:57)
[2016-09-26] MEDS: D5 1/2 NS 1000 ML IV SOLUTION 1,000 ML IV SCH (22:57)
[2016-09-27] VITALS (9 sets, daily range): BP systolic 95–131; BP diastolic 47–65
[2016-09-27] MEDS: methylPREDNISolone 125 MG (Solu-MEDROL) VIAL IV SCH ×3 (00:22→14:05)
[2016-09-27] MEDS: HYDROcodone/APAP 5 MG/325 MG (LORTAB) TAB PO PRN ×4 (00:23→18:47)
[2016-09-27] MEDS: D5 1/2 NS 1000 ML IV SOLUTION 1,000 ML IV SCH ×3 (05:45→19:07)
[2016-09-27 06:23] LABS: BASOPHILS % (AUTO) 0 % (0-10); EOSINOPHILS % (AUTO) 0 % (0-10); LYMPHOCYTES # (AUTO) 0.2 X 10^3 (1.0-4.0); LYMPHOCYTES % (AUTO) 6 % (12-44); MEAN CORPUSCULAR HEMOGLOBIN 30 PG (25-34); MEAN CORPUSCULAR HGB CONC 32 G/DL (32-36); MEAN CORPUSCULAR VOLUME 94 FL (80-99); MEAN PLATELET VOLUME 9.4 FL (7.4-10.4); MONOCYTES % (AUTO) 1 % (0-12); NEUTROPHILS # (AUTO) 3.6 X 10^3 (1.8-7.8); NEUTROPHILS % (AUTO) 93 % (42-75); PLATELET COUNT 287 10^3/uL (130-400); RED CELL DISTRIBUTION WIDTH 17.1 % (10.0-14.5); WHITE BLOOD COUNT 3.8 10^3/uL (4.3-11.0)
[2016-09-27] MEDS: inSUlin (REGULAR) HUMAN 1 UNIT/0.01 ML (CHARGE PER UNIT) SC SCH ×4 (06:38→21:00)
[2016-09-27 06:51] LABS: ALANINE AMINOTRANSFERASE 7 U/L (0-55); ALBUMIN 2.9 G/DL (3.2-4.5); ANION GAP 11 MMOL/L (5-14); ASPARTATE AMINO TRANSFERASE 12 U/L (5-34); BILIRUBIN,TOTAL 0.3 MG/DL (0.1-1.0); BLOOD UREA NITROGEN 12 MG/DL (7-18); BUN/CREATININE RATIO 18; CALCIUM 8.4 MG/DL (8.5-10.1); CARBON DIOXIDE 20 MMOL/L (21-32); CHLORIDE 106 MMOL/L (98-107); CREATININE SERUM 0.68 MG/DL (0.60-1.30); GFR ESTIMATED > 60; GLUCOSE 203 MG/DL (70-105); POTASSIUM 4.1 MMOL/L (3.6-5.0); SODIUM 137 MMOL/L (135-145); TOTAL PROTEIN 5.7 G/DL (6.4-8.2)
[2016-09-27] MEDS: RT-ALBUTEROL SULF 2.5 MG/3 ML PRE-MIX VIAL INH SCH ×4 (06:54→19:11)
[2016-09-27] MEDS: RT-ADVAIR HFA 115/21 MCG PER PUFF IH SCH ×2 (06:54→19:15)
--- NOTE | 2016-09-27 07:23 | History & Physicial ---
History of Present Illness History of Present Illness Reason for visit/HPI feeling horrible. Has been weak and dehydrated and unable to stand up . patient had chemotherapy last Sunday patient not eating much. .patient came out to the emergency room yesterday afternoon. Patient chest x- ray shows hilar masses in pneumonia. Patient admitted Patient has history of lung cancer with metastasis to brain. Surgeries only port. Patient states she's been coughing and congestion. Patient still smokes one pack a day. Family history denies asthma TB diabetes heart disease lung disease cancer. Patient and known diabetic. Date of Admission Sep 26, 2016 at 18:05 I consulted on this patient on 09/27/16 07:18 Attending Physician Desean Rondon DO Admitting Physician Desean Rondon DO Consult Allergies and Home Medications Allergies Coded Allergies: benzonatate (Verified Allergy, Unknown, 06/27/15) cephalexin (Verified Allergy, Unknown, 09/26/16) PER DR. JUAREZ PATIENT ONLY ALLERGIC TO CEPHALEXIN, CAN TOLERATE OTHER CEPHLASPORINS. Uncoded Allergies: pollen (Allergy, Intermediate, 09/26/16) stuffed up nose Home Medications Albuterol Sulfate 2.5 Mg/0.5 Ml Vial.neb 2.5 MG IH Q4H PRN PRN SHORTNESS OF BREATH (Reported) Alprazolam 0.25 Mg Tablet 0.25 MG PO TID PRN PRN ANXIETY (Reported) Budesonide/Formoterol Fumarate 10.2 Gm Hfa.aer.ad 2 PUFF IH BID (Reported) Ezetimibe/Simvastatin 1 Each Tablet 1 TAB PO HS (Reported) Levothyroxine Sodium 50 Mcg Tablet 50 MCG PO DAILY (Reported) Lisinopril 10 Mg Tablet 10 MG PO HS (Reported) Metformin HCl 500 Mg Tablet 500 MG PO WITH EVENING MEAL (Reported) Metformin Hcl 500 Mg Tablet 1,000 MG PO DAILY (Reported) TAKE 2 (500MG) TABS IN AM Promethazine HCl/Codeine 118 Ml Syrup 2 TSP PO TID (Reported) Tiotropium [place] 18 Mcg Cap.w.dev 1 CAP IH DAILY @ 1400 (Reported) Past Ounlszr-Fhulnl-Sayslc Hx Patient Social History Marrital Status: Employed/Student: unemployed Alcohol Use: Denies Use Recreational Drug Use: No Smoking Status: Current Everyday Smoker Type Used: Cigarettes Physical Abuse Screen: No Sexual Abuse: No Recent Foreign Travel: No Contact w/other who traveled: No Recent Hopitalizations: No Recent Infectious Disease Expo: No Immunizations Up To Date Tetanus Booster (TDap): Unknown Date of Pneumonia Vaccine: Jun 20, 2016 Date of Influenza Vaccine: Jun 20, 2016 Seasonal Allergies Seasonal Allergies: Yes (pollen ) Surgeries HX Surgeries: Yes (C/S X2, PORT PLACEMENT; CARDIAC CATH-NO INTERVENTION; CATARACTS) Surgeries: Section, Eye Surgery Respiratory Hx Respiratory Disorders: Yes (CHRONIC RESPIRATORY FAILURE; LUNG CANCER WITH BRAIN METS--DX 05/2015) Respiratory Disorders: COPD, Emphysema Cardiovascular Hx Cardiovascular Disorders: Yes (TAKES LISINOPRIL FOR KIDNEYS, HEART CATH 6YRS AGO-NO INTERVENTION) Cardiac Disorders: High Cholesterol, Hypertension Neurological Hx Neurological Disorders: Yes (BRAIN METS FROM LUNG CANCER) Reproductive System : No Hx Reproductive Disorders: No Sexually Transmitted Disease: No HIV/AIDS: No Female Reproductive Disorders: Denies Genitourinary Hx Genitourinary Disorders: No Gastrointestinal Hx Gastrointestinal Disorders: Yes Gastrointestinal Disorders: Chronic Constipation Musculoskeletal Hx Musculoskeletal Disorders: Yes (SPINAL STENOSIS-INJECTIONS HELPED PAIN IN PAST) Musculoskeletal Disorders: Degenerate Disk Disease, Arthritis, Chronic Back Pain Endocrine Hx Endocrine Disorders: Yes Endocrine Disorders: Hypothyroidsim, Diabetes, Non-Insulin dep HEENT HX ENT Disorders: Yes (CATARCT SURGERY, READING GLASSES) HEENT Disorders: Cataract Loss of Vision: Denies Hearing Impairment: Denies Cancer Hx Cancer: Yes (HAS METS TO BRAIN-10 RADIATION [place] AND CURRENTLY ON CHEMO OF 09/26/16) Cancer: Lung Psychosocial Hx Psychiatric Problems: Yes Behavioral Health Disorders: Anxiety Integumentary HX Skin/Integumentary Disorder: No Blood Transfusions Hx Blood Disorders: No Adverse Reaction to a Blood Tr: No Family Medical History Family Hx: FH: coronary artery disease 19 FATHER Constitutional: malaise weakness weight loss EENTM: no symptoms reported Respiratory: cough dyspnea on exertion short of breath wheezing Cardiovascular: no symptoms reported Gastrointestinal: loss of appetite Genitourinary: no symptoms reported Physical Exam Vital Signs Vital Sign - Last 12Hours 09/26/16 11:00 Temp 99.3 Pulse 104 Resp 20 B/P 126/56 Pulse Ox 97 O2 Delivery Nasal Cannula O2 Flow Rate 2.00 Capillary Refill : Less Than 3 Seconds General Appearance: Thin Eyes: Bilateral Eye Normal Inspection HEENT: Normal ENT Inspection Neck: Full Range of Motion Normal Inspection Respiratory: Decreased Breath Sounds Other (congestion) Cardiovascular: Regular Rate, Rhythm No Murmur Gastrointestinal: No Pulsatile Mass Non Tender Assessment/Plan Assessment and Plan pneumonia. Sepsis. Lung cancer with metastasis to brain. Diabetes. Anemia. Had chemotherapy on Sunday. Tobacco usage still. Hyperlipidemia. Hypertension Clinical Quality Measures DVT/VTE Risk/Contraindication: Risk Factor Score Per Nursin RFS Level Per Nursing on Admit: 4+=Very High DESEAN RONDON DO Sep 27, 2016 07:23
[2016-09-27] MEDS ORDERED: TIOTROPIUM BROMIDE (SPIRIVA) 5'S INHALER IH SCH (08:00)
[2016-09-27] MEDS ORDERED: UMECLIDINIUM BROMIDE (INCRUSE ELLIPTA) 7'S IH SCH (08:00)
[2016-09-27] MEDS ORDERED: HYDR-3812 PO (08:18)
[2016-09-27] MEDS ORDERED: BUDE10.2 IH (08:18)
[2016-09-27] MEDS ORDERED: LISI2.5T PO (08:18)
[2016-09-27] MEDS ORDERED: RT-ALBUINH INH (08:18)
[2016-09-27] MEDS: ENOXAPARIN 40 MG/0.4 ML (LOVENOX) SYR SC SCH (08:51)
[2016-09-27] MEDS: ALPRAZolam 0.25 MG (XANAX) TAB PO PRN (08:51)
[2016-09-27] MEDS ORDERED: ALPRAZolam 0.25 MG (XANAX) TAB PO SCH (09:00)
[2016-09-27] MEDS: VANCOMYCIN 750 MG/NS 250 ML IVPB IV SCH ×2 (20:13)
[2016-09-27] MEDS: methylPREDNISolone 40 MG/ML (Solu-MEDROL) VIAL IV SCH (22:10)
[2016-09-27] MEDS: PROMETHAZINE/ CODEINE SYRUP 5 ML UDC PO SCH (22:10)
[2016-09-27] MEDS: eZETimibe 10 MG (ZETIA) TABLET PO SCH (22:11)
[2016-09-27] MEDS: CEFEPIME 2 GM/NS 50 ML IVPB IV SCH ×2 (22:11)
[2016-09-27] MEDS: SIMvastatin 20 MG (ZOCOR) TAB PO SCH (22:20)
[2016-09-28] VITALS: BP 110/55
[2016-09-28 04:00] VITALS: BP 124/58
[2016-09-28] MEDS: methylPREDNISolone 40 MG/ML (Solu-MEDROL) VIAL IV SCH (06:53)
[2016-09-28] MEDS: LEVOTHYROXINE 50 MCG (LEVOTHROID) TAB PO SCH (06:53)
[2016-09-28] MEDS: inSUlin (REGULAR) HUMAN 1 UNIT/0.01 ML (CHARGE PER UNIT) SC SCH ×4 (06:54→21:08)
[2016-09-28] MEDS: RT-ALBUTEROL SULF 2.5 MG/3 ML PRE-MIX VIAL INH SCH ×4 (06:58→19:22)
[2016-09-28] MEDS: RT-ADVAIR HFA 115/21 MCG PER PUFF IH SCH ×2 (06:59→19:27)
[2016-09-28] MEDS: UMECLIDINIUM BROMIDE (INCRUSE ELLIPTA) 7'S IH SCH (07:01)
[2016-09-28 07:17] LABS: BASOPHILS % (AUTO) 0 % (0-10); EOSINOPHILS % (AUTO) 0 % (0-10); LYMPHOCYTES # (AUTO) 0.2 X 10^3 (1.0-4.0); LYMPHOCYTES % (AUTO) 8 % (12-44); MEAN CORPUSCULAR HEMOGLOBIN 30 PG (25-34); MEAN CORPUSCULAR HGB CONC 32 G/DL (32-36); MEAN CORPUSCULAR VOLUME 95 FL (80-99); MEAN PLATELET VOLUME 9.4 FL (7.4-10.4); MONOCYTES % (AUTO) 1 % (0-12); NEUTROPHILS # (AUTO) 2.6 X 10^3 (1.8-7.8); NEUTROPHILS % (AUTO) 91 % (42-75); PLATELET COUNT 288 10^3/uL (130-400); RED BLOOD COUNT 2.81 10^6/uL (4.35-5.85); RED CELL DISTRIBUTION WIDTH 17.2 % (10.0-14.5); WHITE BLOOD COUNT 2.9 10^3/uL (4.3-11.0)
[2016-09-28 07:44] LABS: ALANINE AMINOTRANSFERASE 12 U/L (0-55); ALBUMIN 2.8 G/DL (3.2-4.5); ANION GAP 8 MMOL/L (5-14); ASPARTATE AMINO TRANSFERASE 11 U/L (5-34); BILIRUBIN,TOTAL 0.2 MG/DL (0.1-1.0); BLOOD UREA NITROGEN 11 MG/DL (7-18); BUN/CREATININE RATIO 18; CALCIUM 8.2 MG/DL (8.5-10.1); CARBON DIOXIDE 23 MMOL/L (21-32); CHLORIDE 105 MMOL/L (98-107); CREATININE SERUM 0.61 MG/DL (0.60-1.30); GFR ESTIMATED > 60; GLUCOSE 193 MG/DL (70-105); POTASSIUM 3.6 MMOL/L (3.6-5.0); SODIUM 136 MMOL/L (135-145); TOTAL PROTEIN 5.6 G/DL (6.4-8.2)
[2016-09-28] MEDS: ENOXAPARIN 40 MG/0.4 ML (LOVENOX) SYR SC SCH (07:52)
[2016-09-28] MEDS: D5 1/2 NS 1000 ML IV SOLUTION 1,000 ML IV SCH (07:52)
--- NOTE | 2016-09-28 07:57 | Progress Note (SOAP) ---
Subjective Subjective/Events-last exam patient feeling better today. Patient able to sit up in chair and walk around. When patient came in she was too weak to get up. Lung congestion is less. Patient improving. White blood cell 2.8 due to chemotherapy hemoglobin 8.5 hematocrit 27 platelet count 91 stable Objective Exam Vital Signs Date Time Temp Pulse Resp B/P Pulse Ox O2 Delivery O2 Flow Rate FiO2 09/28/16 07:05 98 2.00 09/28/16 07:03 98 2.00 09/28/16 07:02 98 2.00 09/28/16 04:00 98.1 97 20 124/58 99 Nasal Cannula 2.00 09/28/16 01:00 98 09/28/16 00:00 97.8 101 20 110/55 99 Nasal Cannula 2.00 09/27/16 20:00 97.6 111 16 117/65 98 Nasal Cannula 2.00 09/27/16 20:00 Nasal Cannula 1.50 09/27/16 19:15 97 2.00 09/27/16 19:12 97 2.00 09/27/16 19:00 105 09/27/16 16:00 98.0 111 16 95/56 95 Nasal Cannula 2.00 09/27/16 14:32 95 2.00 09/27/16 12:00 96.9 115 20 108/51 97 Nasal Cannula 2.00 09/27/16 10:41 96 2.00 09/27/16 08:10 97 Nasal Cannula 1.50 09/27/16 08:00 99.3 112 20 100/51 98 Nasal Cannula 2.00 I & O 09/28/16 07:00 Intake Total 3780 ml Output Total 750 ml Balance 3030 ml Capillary Refill : Less Than 3 Seconds General Appearance: No Apparent Distress Thin HEENT: Normal ENT Inspection Neck: Full Range of Motion Normal Inspection Respiratory: Chest Non Tender No Accessory Muscle Use No Respiratory Distress Decreased Breath Sounds Other (congestion) Cardiovascular: Regular Rate, Rhythm No Murmur Gastrointestinal: non tender soft Results Lab Laboratory Tests 09/28/16 06:18 Laboratory Tests 09/27/16 12:35: Glucometer 356H 09/27/16 16:31: Glucometer 193H 09/27/16 21:37: Glucometer 199H 09/28/16 05:46: Glucometer 219H 09/28/16 06:18: Alanine Aminotransferase (ALT/SGPT) 12, Albumin 2.8L, Alkaline Phosphatase 46, Anion Gap 8, Aspartate Amino Transf (AST/SGOT) 11, BUN/Creatinine Ratio 18, Basophils # (Auto) 0.0, Basophils (%) (Auto) 0, Blood Urea Nitrogen 11, Calcium Level 8.2L, Carbon Dioxide Level 23, Chloride Level 105, Creatinine 0.61, Eosinophils # (Auto) 0.0, Eosinophils (%) (Auto) 0, Estimat Glomerular Filtration Rate > 60, Glucose Level 193H, Hematocrit 27L, Hemoglobin 8.5L, Lymphocytes # (Auto) 0.2L, Lymphocytes (%) (Auto) 8L, Mean Corpuscular Hemoglobin 30, Mean Corpuscular Hemoglobin Concent 32, Mean Corpuscular Volume 95, Mean Platelet Volume 9.4, Monocytes # (Auto) 0.0, Monocytes (%) (Auto) 1, Neutrophils # (Auto) 2.6, Neutrophils (%) (Auto) 91H, Platelet Count 288, Potassium Level 3.6, Red Blood Count 2.81L, Red Cell Distribution Width 17.2H, Sodium Level 136, Total Bilirubin 0.2, Total Protein 5.6L, White Blood Count 2.9L Microbiology 09/26/16 Blood Culture - Preliminary, Resulted No growth 09/26/16 Influenza Types A,B Antigen (BOB) - Final, Complete Assessment/Plan Assessment/Plan Assess & Plan/Chief Complaint pneumonia. Metastatic lung cancer. 2 brain area Diabetes Diagnosis/Problems: Clinical Quality Measures DVT/VTE Risk/Contraindication: Risk Factor Score Per Nursin RFS Level Per Nursing on Admit: 4+=Very High KERON RONDON DO Sep 28, 2016 07:57
[2016-09-28 08:00] VITALS: BP 143/63
[2016-09-28] MEDS: LEVOFLOXACIN 750 MG/D5W 150 ML (PRE-MIX) IV SCH (09:06)
[2016-09-28] MEDS: PROMETHAZINE/ CODEINE SYRUP 5 ML UDC PO SCH ×3 (09:07→21:02)
[2016-09-28] MEDS: lisINopril 5 MG (PRINIVIL) TABLET PO SCH (09:08)
[2016-09-28] MEDS: ALPRAZolam 0.25 MG (XANAX) TAB PO PRN ×2 (09:08→21:02)
--- NOTE | 2016-09-28 09:33 | CONSULTATION REPORT ---
DATE OF CONSULTATION: 09/27/2016 The patient is admitted to Room 409 bed 1 PRIMARY AND REFERRING PHYSICIAN: Desean Tipton D.O. IMPRESSION: 1. 76-year-old female with metastatic non-small cell lung cancer, adenocarcinoma subtype who is on palliative chemotherapy with single agent gemcitabine on an outpatient basis. 2. Admitted with increased cough and fatigue and evidence of left lower lobe infiltrates. 3. Probable sepsis syndrome with hypotension. 4. Continued tobacco use. RECOMMENDATIONS: 1. Continue broad spectrum antibiotics as you are doing. 2. Agree with IV hydration and due to clinical dehydration. 3. I will withhold chemotherapy until the infectious processes clear. 4. Agree with maintaining her as a DNR as per patient's expressed wishes. 5. Will follow the patient with you. BRIEF HISTORY: Mrs. Maxwell is a 76-year-old female with history of metastatic poorly differentiated adenocarcinoma diagnosed in 04/2015. She was found to have brain metastasis at the time of diagnosis and completed whole brain radiation therapy by May 2015. Since then she has been on palliative chemotherapy, initially with carboplatin and paclitaxel regimen until May 2016 and stopped due to progressive disease. Since then she was started on second line chemotherapy with gemcitabine and has completed 3 to 4 months of treatment. Her most recent chemotherapy was earlier this week. At that point she was recovering from an upper respiratory infection and had completed a course of antibiotics on an outpatient basis. She was not drinking enough fluids and was slightly dehydrated with borderline hypotension on that day. Chest x-ray was stable. She was started on the next course of chemotherapy. She was brought to the hospital last evening by her family because of rapidly increasing weakness. The patient mentioned that she did not eat or drink anything throughout yesterday and was found to be hypotensive and clinically dehydrated. Work-up showed a new left lower lobe infiltrate and right hilar infiltrates around the mass. She was admitted to the hospital with clinical diagnosis of pneumonia and probable sepsis syndrome and started on broad spectrum antibiotics. PAST MEDICAL HISTORY: 1. Hypertension for which she has been on treatment for long time. 2. Hypothyroidism. 3. Lung cancer diagnosed in 04/2015 as mentioned above and treated. 4. She has diabetes melitis type II which is controlled with oral medications. 5. COPD. 6. Hyperlipidemia. 7. She continues to use, tobacco regularly and does not want to quit. FAMILY HISTORY: Family history is noncontributory except for coronary artery disease in her father. SOCIAL HISTORY: The patient is and lives in [place], [place]. Developmentally disabled foster the son lives with her. She has 2 sons who live close by. Several nieces and nephews also live close by. She continues to smoke a 1/2 to 1 pack of cigarettes a day and does not want to quit. Recently she has not been eating and drinking well and depends on coffee for most of her nutrition. PHYSICAL EXAMINATION: Today showed an elderly female, thin and weak appearing, awake, and answering questions and in mild discomfort at the time of evaluation. Her temperature was 98.1, pulse rate of 110, respirations 22, blood pressure 131/59 with oxygen saturation of 97% on 2 liters of oxygen by nasal cannula. Temperature at the time of admission was 99.8, pulse rate of 99, respirations 20, and blood pressure 99/47. HEENT: Normocephalic with alopecia. Extraocular muscles intact. Oral mucosa moist. NECK: Neck was supple with no JVD. No cervical, supraclavicular, or axillary lymphadenopathy palpable. CHEST: Symmetrical with an implanted port. LUNGS: With slightly diminished breath sounds in the left base, but no wheezes or rales heard. CARDIOVASCULAR EXAM: Was regular in rate and rhythm without murmurs or gallops, borderline tachycardic. ABDOMEN: Soft, nontender, with no hepatosplenomegaly or other masses palpable. EXTREMITIES: Showed trace edema around the ankles. NEUROLOGICAL EXAM: Showed no focal motor deficits. Overall motor strength was 4/5 bilaterally. LABORATORY: CBC done today showed white count of 3.8, hemoglobin 8.9, platelet count of 287,000 with neutrophil count of 3.6. CBC done yesterday evening showed white count of 7.5, hemoglobin 10.0, and platelet count of 331,000 with a decrease probably related to hydration and dilution, Chemistry panel done today showed relatively normal electrolytes. BUN was 12 and creatinine 0.68 with GFR more than 60 mL per minute. Nonfasting glucose was 203. Liver function studies were normal except albumin level of 2.9. Chest x-ray done yesterday in the emergency room showed increase in the right perihilar mass with increasing infiltrates around this. Development of infiltrate in the left base with a small effusion. A right upper lobe mass is stable. Thank you for allowing me to participate in this patient's care. I will follow the patient with you and make appropriate recommendations. Job ID: [id number] Dictated Date: 09/27/2016 14:54:32 Manager [employer] Date: 09/28/2016 09:07:28/patricio MCLAUGHLIN
--- NOTE | 2016-09-28 11:38 | Diagnostic Imaging Report ---
INDICATION: Pneumonia, lung cancer. Compared 09/26/2016. FINDINGS: Abnormal right hilar density is redemonstrated. The more diffuse infiltrates in the right mid/ lower lung and left lung base have improved. COPD chronic. Focal opacity in the right upper lobe unchanged. IMPRESSION: Soft tissue-like opacities in the right chest unchanged, however, infiltrates superimposed have improved. There is severe COPD with no adverse development. Dictated by: Dictated on workstation # [id number]
[2016-09-28 12:00] VITALS: BP 133/76
[2016-09-28] MEDS: HYDROcodone/APAP 5 MG/325 MG (LORTAB) TAB PO PRN ×2 (12:31→21:02)
[2016-09-28 16:00] VITALS: BP 129/70
[2016-09-28] MEDS: VANCOMYCIN 750 MG/NS 250 ML IVPB IV SCH ×2 (19:45)
[2016-09-28 20:00] VITALS: BP 154/71
[2016-09-28] MEDS: SIMvastatin 20 MG (ZOCOR) TAB PO SCH (21:02)
[2016-09-28] MEDS: eZETimibe 10 MG (ZETIA) TABLET PO SCH (21:02)
[2016-09-28] MEDS: CEFEPIME 2 GM/NS 50 ML IVPB IV SCH ×2 (21:05)
[2016-09-29 04:00] VITALS: BP 146/67
[2016-09-29] MEDS: inSUlin (REGULAR) HUMAN 1 UNIT/0.01 ML (CHARGE PER UNIT) SC SCH ×4 (06:00→21:00)
[2016-09-29] MEDS: LEVOTHYROXINE 50 MCG (LEVOTHROID) TAB PO SCH (06:16)
[2016-09-29] MEDS: ALPRAZolam 0.25 MG (XANAX) TAB PO PRN ×2 (06:16→20:20)
[2016-09-29] MEDS: HYDROcodone/APAP 5 MG/325 MG (LORTAB) TAB PO PRN ×2 (06:16→20:21)
[2016-09-29 06:21] LABS: BASOPHILS % (AUTO) 0 % (0-10); EOSINOPHILS % (AUTO) 0 % (0-10); LYMPHOCYTES # (AUTO) 0.5 X 10^3 (1.0-4.0); LYMPHOCYTES % (AUTO) 16 % (12-44); MEAN CORPUSCULAR HEMOGLOBIN 30 PG (25-34); MEAN CORPUSCULAR HGB CONC 32 G/DL (32-36); MEAN CORPUSCULAR VOLUME 95 FL (80-99); MEAN PLATELET VOLUME 8.7 FL (7.4-10.4); MONOCYTES # (AUTO) 0.1 X 10^3 (0.0-1.0); MONOCYTES % (AUTO) 2 % (0-12); NEUTROPHILS # (AUTO) 2.8 X 10^3 (1.8-7.8); NEUTROPHILS % (AUTO) 82 % (42-75); PLATELET COUNT 305 10^3/uL (130-400); RED BLOOD COUNT 2.83 10^6/uL (4.35-5.85); WHITE BLOOD COUNT 3.4 10^3/uL (4.3-11.0)
[2016-09-29 06:40] LABS: ALANINE AMINOTRANSFERASE 41 U/L (0-55); ALBUMIN 2.7 G/DL (3.2-4.5); ANION GAP 9 MMOL/L (5-14); ASPARTATE AMINO TRANSFERASE 42 U/L (5-34); BILIRUBIN,TOTAL 0.2 MG/DL (0.1-1.0); BLOOD UREA NITROGEN 12 MG/DL (7-18); BUN/CREATININE RATIO 20; CALCIUM 7.9 MG/DL (8.5-10.1); CARBON DIOXIDE 24 MMOL/L (21-32); CHLORIDE 106 MMOL/L (98-107); CREATININE SERUM 0.61 MG/DL (0.60-1.30); GFR ESTIMATED > 60; GLUCOSE 127 MG/DL (70-105); POTASSIUM 3.7 MMOL/L (3.6-5.0); SODIUM 139 MMOL/L (135-145); TOTAL PROTEIN 5.3 G/DL (6.4-8.2)
[2016-09-29] MEDS: D5 1/2 NS 1000 ML IV SOLUTION 1,000 ML IV SCH (06:44)
[2016-09-29] MEDS: RT-ALBUTEROL SULF 2.5 MG/3 ML PRE-MIX VIAL INH SCH ×4 (07:18→21:10)
[2016-09-29] MEDS: RT-ADVAIR HFA 115/21 MCG PER PUFF IH SCH ×2 (07:18→20:10)
--- NOTE | 2016-09-29 07:33 | Progress Note (SOAP) ---
Subjective Subjective/Events-last exam patient still weak. Patient still congested. Patient still coughing. Patient realizes she has to stay in the hospital for a few more days. Chest x-ray shows patient has turned the corner yesterday x-ray. Patient improving and patient seems stronger but still weak Objective Exam Vital Signs Date Time Temp Pulse Resp B/P Pulse Ox O2 Delivery O2 Flow Rate FiO2 09/29/16 07:22 92 2.00 09/29/16 07:19 92 2.00 09/29/16 04:00 98.1 98 16 146/67 99 Nasal Cannula 1.00 09/29/16 01:00 99 09/28/16 21:25 Nasal Cannula 2.00 09/28/16 20:00 98.7 115 20 154/71 95 Nasal Cannula 2.00 09/28/16 19:27 92 2.00 09/28/16 19:23 92 2.00 09/28/16 19:00 110 09/28/16 16:00 98.6 112 20 129/70 97 Nasal Cannula 2.00 09/28/16 14:24 96 2.00 09/28/16 13:00 127 09/28/16 12:36 122 09/28/16 12:00 99.6 117 20 133/76 97 Nasal Cannula 2.00 09/28/16 10:37 97 2.00 09/28/16 09:00 Nasal Cannula 2.00 09/28/16 08:00 99.7 119 24 143/63 98 Nasal Cannula 2.00 I & O 09/29/16 07:00 Intake Total 4220 ml Output Total 300 ml Balance 3920 ml Capillary Refill : Less Than 3 Seconds General Appearance: No Apparent Distress Thin HEENT: Normal ENT Inspection Neck: Full Range of Motion Normal Inspection Respiratory: Chest Non Tender No Accessory Muscle Use No Respiratory Distress Decreased Breath Sounds Other (congested with coughing) Cardiovascular: Regular Rate, Rhythm No Murmur Gastrointestinal: non tender soft Results Lab Laboratory Tests 09/28/16 11:26: Glucometer 230H 09/28/16 16:11: Glucometer 171H 09/28/16 20:55: Glucometer 214H 09/29/16 06:00: Alanine Aminotransferase (ALT/SGPT) 41, Albumin 2.7L, Alkaline Phosphatase 50, Anion Gap 9, Aspartate Amino Transf (AST/SGOT) 42H, BUN/Creatinine Ratio 20, Basophils # (Auto) 0.0, Basophils (%) (Auto) 0, Blood Urea Nitrogen 12, Calcium Level 7.9L, Carbon Dioxide Level 24, Chloride Level 106, Creatinine 0.61, Eosinophils # (Auto) 0.0, Eosinophils (%) (Auto) 0, Estimat Glomerular Filtration Rate > 60, Glucose Level 127H, Hematocrit 27L, Hemoglobin 8.5L, Lymphocytes # (Auto) 0.5L, Lymphocytes (%) (Auto) 16, Mean Corpuscular Hemoglobin 30, Mean Corpuscular Hemoglobin Concent 32, Mean Corpuscular Volume 95, Mean Platelet Volume 8.7, Monocytes # (Auto) 0.1, Monocytes (%) (Auto) 2, Neutrophils # (Auto) 2.8, Neutrophils (%) (Auto) 82H, Platelet Count 305, Potassium Level 3.7, Red Blood Count 2.83L, Red Cell Distribution Width 17.0H, Sodium Level 139, Total Bilirubin 0.2, Total Protein 5.3L, White Blood Count 3.4L 09/29/16 06:08: Glucometer 144H Microbiology 09/26/16 Blood Culture - Preliminary, Resulted No growth 09/26/16 Influenza Types A,B Antigen (BOB) - Final, Complete Meds Laboratory Tests 09/29/16 06:00 Assessment/Plan Assessment/Plan Assess & Plan/Chief Complaint pneumonia. Metastatic lung cancer. 2 brain area Diabetes. . 09/29/16. Pneumonia lower left lung with metastatic lung cancer to the brain. Non-small cell cancer. Sepsis syndrome. Still smoking. Patient is improving. Patient still weak. Patient still congested Diagnosis/Problems: Clinical Quality Measures DVT/VTE Risk/Contraindication: Risk Factor Score Per Nursin RFS Level Per Nursing on Admit: 4+=Very High KERON RONDON DO Sep 29, 2016 07:33
--- NOTE | 2016-09-29 08:08 | Diagnostic Imaging Report ---
INDICATION: Dyspnea, followup pneumonia, history of lung cancer. DISCUSSION: Two views of the chest were obtained, comparison 09/28/2016. Mass-like opacity within the right upper lobe is stable. Partially calcified nodule within the left upper lobe is stable. Left chest wall [id number] is unchanged. Mass-like enlargement of the right hilum is stable. Patchy alveolar infiltrates within the right lower lobe show no significant interval change. However, there is worsening consolidation within the left lower lobe, concerning for worsening pneumonia. The lungs are hyperinflated consistent with underlying COPD. No definite pleural fluid or pneumothorax identified. Stable normal heart size. IMPRESSION: 1. Worsening consolidation within the left lower lobe, concerning for worsening pneumonia. Dictated by: Dictated on workstation # [id number]
[2016-09-29 08:56] VITALS: BP 176/84
[2016-09-29] MEDS: ENOXAPARIN 40 MG/0.4 ML (LOVENOX) SYR SC SCH (09:08)
[2016-09-29] MEDS: PROMETHAZINE/ CODEINE SYRUP 5 ML UDC PO SCH ×3 (09:08→20:07)
[2016-09-29] MEDS: lisINopril 5 MG (PRINIVIL) TABLET PO SCH (09:08)
[2016-09-29 12:22] VITALS: BP 161/76
[2016-09-29] MEDS: UMECLIDINIUM BROMIDE (INCRUSE ELLIPTA) 7'S IH SCH (14:34)
[2016-09-29 16:00] VITALS: BP 157/87
[2016-09-29 20:00] VITALS: BP 147/72
[2016-09-29] MEDS: SIMvastatin 20 MG (ZOCOR) TAB PO SCH (20:07)
[2016-09-29] MEDS: VANCOMYCIN 750 MG/NS 250 ML IVPB IV SCH ×2 (20:07)
[2016-09-29] MEDS: eZETimibe 10 MG (ZETIA) TABLET PO SCH (20:07)
[2016-09-29] MEDS: CEFEPIME 2 GM/NS 50 ML IVPB IV SCH ×2 (21:23)
[2016-09-30] VITALS: BP 147/67
[2016-09-30] MEDS: D5 1/2 NS 1000 ML IV SOLUTION 1,000 ML IV SCH ×2 (03:29→21:21)
[2016-09-30 04:17] VITALS: BP 146/68
[2016-09-30] MEDS: HYDROcodone/APAP 5 MG/325 MG (LORTAB) TAB PO PRN ×3 (05:26→21:10)
[2016-09-30 05:45] LABS: BASOPHILS % (AUTO) 0 % (0-10); EOSINOPHILS # (AUTO) 0.1 10^3/uL (0.0-0.3); EOSINOPHILS % (AUTO) 1 % (0-10); LYMPHOCYTES # (AUTO) 1.3 X 10^3 (1.0-4.0); LYMPHOCYTES % (AUTO) 28 % (12-44); MEAN CORPUSCULAR HEMOGLOBIN 30 PG (25-34); MEAN CORPUSCULAR HGB CONC 31 G/DL (32-36); MEAN CORPUSCULAR VOLUME 96 FL (80-99); MEAN PLATELET VOLUME 8.3 FL (7.4-10.4); MONOCYTES # (AUTO) 0.3 X 10^3 (0.0-1.0); MONOCYTES % (AUTO) 6 % (0-12); NEUTROPHILS # (AUTO) 2.9 X 10^3 (1.8-7.8); NEUTROPHILS % (AUTO) 65 % (42-75); PLATELET COUNT 335 10^3/uL (130-400); RED BLOOD COUNT 3.22 10^6/uL (4.35-5.85); RED CELL DISTRIBUTION WIDTH 17.2 % (10.0-14.5); WHITE BLOOD COUNT 4.5 10^3/uL (4.3-11.0)
[2016-09-30] MEDS: inSUlin (REGULAR) HUMAN 1 UNIT/0.01 ML (CHARGE PER UNIT) SC SCH ×4 (06:00→21:00)
[2016-09-30 06:11] LABS: ANION GAP 7 MMOL/L (5-14); BLOOD UREA NITROGEN 12 MG/DL (7-18); BUN/CREATININE RATIO 19; CALCIUM 7.7 MG/DL (8.5-10.1); CARBON DIOXIDE 26 MMOL/L (21-32); CHLORIDE 107 MMOL/L (98-107); CREATININE SERUM 0.64 MG/DL (0.60-1.30); GFR ESTIMATED > 60; GLUCOSE 73 MG/DL (70-105); POTASSIUM 3.8 MMOL/L (3.6-5.0); SODIUM 140 MMOL/L (135-145)
[2016-09-30] MEDS: LEVOTHYROXINE 50 MCG (LEVOTHROID) TAB PO SCH (06:36)
[2016-09-30] MEDS: ENOXAPARIN 40 MG/0.4 ML (LOVENOX) SYR SC SCH (06:36)
[2016-09-30 08:00] VITALS: BP 143/69
[2016-09-30] MEDS: LEVOFLOXACIN 750 MG/D5W 150 ML (PRE-MIX) IV SCH (08:28)
[2016-09-30] MEDS: lisINopril 5 MG (PRINIVIL) TABLET PO SCH (08:28)
[2016-09-30] MEDS: PROMETHAZINE/ CODEINE SYRUP 5 ML UDC PO SCH ×3 (08:28→21:10)
[2016-09-30] MEDS: VANCOMYCIN 750 MG/NS 250 ML IVPB IV SCH ×4 (08:28→20:05)
[2016-09-30] MEDS: RT-ALBUTEROL SULF 2.5 MG/3 ML PRE-MIX VIAL INH SCH ×4 (08:57→20:32)
[2016-09-30] MEDS: RT-ADVAIR HFA 115/21 MCG PER PUFF IH SCH ×2 (08:58→20:00)
[2016-09-30 12:00] VITALS: BP 142/92
[2016-09-30] MEDS: ALPRAZolam 0.25 MG (XANAX) TAB PO PRN (13:03)
--- NOTE | 2016-09-30 13:15 | Progress Note (SOAP) ---
Subjective Subjective/Events-last exam 76 yo F with pneumonia and metastatic breast cancer. She was not interested in conversation this AM. Denies complaints. Not happy. Understandably so. Offered to talk again with pt tomorrow if she would oblige. She is improving though in regards to her infection. Objective Exam Vital Signs Date Time Temp Pulse Resp B/P Pulse Ox O2 Delivery O2 Flow Rate FiO2 09/30/16 09:02 95 2.00 09/30/16 04:17 98.0 96 16 146/68 98 Nasal Cannula 1.00 09/30/16 01:16 102 09/30/16 00:00 98.9 101 18 147/67 96 Room Air 09/29/16 20:10 Nasal Cannula 2.00 09/29/16 20:00 97.4 74 19 147/72 98 Room Air 09/29/16 19:00 116 09/29/16 16:00 98.3 107 18 157/87 95 Room Air 09/29/16 14:37 2.00 09/29/16 14:36 92 2.00 09/29/16 13:12 135 I & O 09/30/16 07:00 Intake Total 4460 ml Output Total 1650 ml Balance 2810 ml Capillary Refill : Less Than 3 Seconds General Appearance: No Apparent Distress Chronically ill HEENT: PERRL/EOMI Neck: Supple Respiratory: Chest Non Tender Decreased Breath Sounds Rhonci Cardiovascular: Regular Rate, Rhythm Gastrointestinal: non tender soft Extremity: Pedal Edema (trace) Neurologic/Psychiatric: Alert Oriented x3 Depressed Affect (irritated) Skin: Warm/Dry Results Lab Laboratory Tests 09/29/16 16:22: Glucometer 110 09/29/16 19:15: Vancomycin Level Trough 3.4L 09/29/16 20:52: Glucometer 129H 09/30/16 05:30: Anion Gap 7, BUN/Creatinine Ratio 19, Basophils # (Auto) 0.0, Basophils (%) ( Auto) 0, Blood Urea Nitrogen 12, Calcium Level 7.7L, Carbon Dioxide Level 26, Chloride Level 107, Creatinine 0.64, Eosinophils # (Auto) 0.1, Eosinophils (%) ( Auto) 1, Estimat Glomerular Filtration Rate > 60, Glucose Level 73, Hematocrit 31L, Hemoglobin 9.6L, Lymphocytes # (Auto) 1.3, Lymphocytes (%) (Auto) 28, Mean Corpuscular Hemoglobin 30, Mean Corpuscular Hemoglobin Concent 31L, Mean Corpuscular Volume 96, Mean Platelet Volume 8.3, Monocytes # (Auto) 0.3, Monocytes (%) (Auto) 6, Neutrophils # (Auto) 2.9, Neutrophils (%) (Auto) 65, Platelet Count 335, Potassium Level 3.8, Red Blood Count 3.22L, Red Cell Distribution Width 17.2H, Sodium Level 140, White Blood Count 4.5 09/30/16 11:50: Glucometer 98 Microbiology 09/26/16 Blood Culture - Preliminary, Resulted No growth 09/26/16 Influenza Types A,B Antigen (BOB) - Final, Complete Assessment/Plan Assessment/Plan Assess & Plan/Chief Complaint 76 yo F Pneumonia LLL- on vancomycin, levofloxacin- IVF repeat CXR in AM. 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 Hair following along DMII- ssi COPD- stable tobaccoism- still smokes- no plan to quit HLD- statin DVT ppx: lovenox Dispo: continue IV levofloxacin, vancomycin- monitor status- Dr. Tipton will take back over care Sunday. Diagnosis/Problems: Clinical Quality Measures DVT/VTE Risk/Contraindication: Risk Factor Score Per Nursin RFS Level Per Nursing on Admit: 4+=Very High JOSE ALEXANDER MD Sep 30, 2016 1:15 pm
[2016-09-30] MEDS: UMECLIDINIUM BROMIDE (INCRUSE ELLIPTA) 7'S IH SCH (15:02)
[2016-09-30] MEDS: NYSTATIN ORAL SUSP 5 ML UDC PO SCH (21:10)
[2016-09-30] MEDS: eZETimibe 10 MG (ZETIA) TABLET PO SCH (21:10)
[2016-09-30] MEDS: CEFEPIME 2 GM/NS 50 ML IVPB IV SCH ×2 (21:10)
[2016-09-30] MEDS: SIMvastatin 20 MG (ZOCOR) TAB PO SCH (21:11)
[2016-10-01] VITALS: BP 165/80
[2016-10-01] MEDS: HYDROcodone/APAP 5 MG/325 MG (LORTAB) TAB PO PRN ×4 (05:04→21:54)
[2016-10-01] MEDS: inSUlin (REGULAR) HUMAN 1 UNIT/0.01 ML (CHARGE PER UNIT) SC SCH ×4 (06:00→21:00)
[2016-10-01] MEDS: LEVOTHYROXINE 50 MCG (LEVOTHROID) TAB PO SCH (06:45)
[2016-10-01] MEDS: NYSTATIN ORAL SUSP 5 ML UDC PO SCH ×3 (06:45→17:30)
[2016-10-01] MEDS: ENOXAPARIN 40 MG/0.4 ML (LOVENOX) SYR SC SCH (06:45)
[2016-10-01] MEDS: RT-ADVAIR HFA 115/21 MCG PER PUFF IH SCH ×2 (08:09→20:48)
[2016-10-01] MEDS: RT-ALBUTEROL SULF 2.5 MG/3 ML PRE-MIX VIAL INH SCH ×4 (08:09→20:48)
[2016-10-01 08:11] VITALS: BP 156/82
[2016-10-01] MEDS: VANCOMYCIN IV ADD-VANTAGE 1,000 MG in SODIUM CHLORIDE (ADD-VANTAGE) 250 ML IV SCH ×2 (08:46→21:06)
[2016-10-01] MEDS: PROMETHAZINE/ CODEINE SYRUP 5 ML UDC PO SCH ×3 (08:46→21:06)
[2016-10-01] MEDS: ALPRAZolam 0.25 MG (XANAX) TAB PO PRN ×2 (08:47→14:03)
[2016-10-01] MEDS: lisINopril 5 MG (PRINIVIL) TABLET PO SCH (08:47)
--- NOTE | 2016-10-01 09:32 | Diagnostic Imaging Report ---
INDICATION: Pneumonia. EXAMINATION: Chest 10/01/2016. COMPARISON: Comparison made to 09/29/2016. FINDINGS: Lungs are hyperinflated. The previously noted increased perihilar opacities on the right have slightly improved. Persistent infiltrate in the left lung base noted. There is a likely adjacent small effusion. There is an airspace opacity in the periphery right upper lobe stable. Densities in the left perihilar region and left lung apex likely calcified and unchanged. There is a left sided chest port stable from previous imaging. IMPRESSION: 1. Interval improvement in appearance of the right perihilar region with remaining infiltrates stable. Other findings as above. Dictated by: Dictated on workstation # [id number]
[2016-10-01] MEDS: UMECLIDINIUM BROMIDE (INCRUSE ELLIPTA) 7'S IH SCH (14:46)
--- NOTE | 2016-10-01 14:52 | Progress Note (SOAP) ---
Subjective Subjective/Events-last exam Cancer Pneumonia Doing much better- pt is smiling and willing to talk today. Family has been taking pt downstairs so she can walk around and get her strength back so she can eventually go home. They also are allowing her to smoke cigarettes. Review of Systems General: No Chills, No Night Sweats HEENT: No Head Aches Pulmonary: Dyspnea Cough Cardiovascular: No: Chest Pain, Palpitations Gastrointestinal: No: Abdominal Pain, Nausea, Vomiting Genitourinary: No Dysuria Neurological: : Weakness Objective Exam Vital Signs Date Time Temp Pulse Resp B/P Pulse Ox O2 Delivery O2 Flow Rate FiO2 10/01/16 10:51 2.00 10/01/16 08:11 98.4 100 18 156/82 94 Nasal Cannula 1.00 10/01/16 08:10 95 2.00 10/01/16 08:00 Nasal Cannula 2.00 10/01/16 00:00 98.4 115 17 165/80 93 Nasal Cannula 1.00 09/30/16 19:50 Nasal Cannula 2.00 09/30/16 15:10 2.00 09/30/16 15:02 92 I & O 10/01/16 07:00 Intake Total 2940 ml Output Total 3300 ml Balance -360 ml Capillary Refill : Less Than 3 Seconds General Appearance: No Apparent Distress Cachetic HEENT: PERRL/EOMI Neck: Non Tender Respiratory: Chest Non Tender Normal Breath Sounds No Accessory Muscle Use Respiratory Distress (mild) Cardiovascular: Regular Rate, Rhythm Gastrointestinal: non tender soft Extremity: Non Tender Neurologic/Psychiatric: Alert Oriented x3 Skin: Warm/Dry Other comments smells of tobacco smoke Results Lab Laboratory Tests 09/30/16 17:04: Glucometer 140H 09/30/16 21:16: Glucometer 190H 10/01/16 06:17: Glucometer 139H 10/01/16 06:52: Vancomycin Level Trough 9.4L 10/01/16 12:23: Glucometer 108 Microbiology 09/26/16 Blood Culture - Preliminary, Resulted No growth 09/26/16 Influenza Types A,B Antigen (BOB) - Final, Complete Assessment/Plan Assessment/Plan Assess & Plan/Chief Complaint 76 yo F Pneumonia LLL- on vancomycin, levofloxacin- IVF repeat CXR stable HTN- lisinopril 2.5mg hypothyroidism- continue [id number] 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 Hair following along DMII- ssi COPD- stable tobaccoism- still smokes- no plan to quit HLD- statin Weakness- PT DVT ppx: lovenox Dispo: continue IV levofloxacin, vancomycin- monitor status- Dr. Tipton will take back over care Sunday. Diagnosis/Problems: Clinical Quality Measures DVT/VTE Risk/Contraindication: Risk Factor Score Per Nursin RFS Level Per Nursing on Admit: 4+=Very High JOSE ALEXANDER MD Oct 01, 2016 14:52
[2016-10-01 16:00] VITALS: BP 127/53
[2016-10-01] MEDS: eZETimibe 10 MG (ZETIA) TABLET PO SCH (21:07)
[2016-10-01] MEDS: SIMvastatin 20 MG (ZOCOR) TAB PO SCH (21:07)
[2016-10-01 21:54] VITALS: BP 160/70
[2016-10-01] MEDS: CEFEPIME 2 GM/NS 50 ML IVPB IV SCH ×2 (22:16)
[2016-10-01] MEDS: D5 1/2 NS 1000 ML IV SOLUTION 1,000 ML IV SCH (22:25)
[2016-10-02] VITALS: BP 108/52
[2016-10-02] MEDS: NYSTATIN ORAL SUSP 5 ML UDC PO SCH ×4 (00:49→19:38)
[2016-10-02] MEDS: HYDROcodone/APAP 5 MG/325 MG (LORTAB) TAB PO PRN ×2 (04:59→14:07)
[2016-10-02] MEDS: inSUlin (REGULAR) HUMAN 1 UNIT/0.01 ML (CHARGE PER UNIT) SC SCH ×4 (05:37→22:17)
[2016-10-02] MEDS: ALPRAZolam 0.25 MG (XANAX) TAB PO PRN ×3 (06:48→20:42)
[2016-10-02] MEDS: ENOXAPARIN 40 MG/0.4 ML (LOVENOX) SYR SC SCH (06:48)
[2016-10-02] MEDS: LEVOTHYROXINE 50 MCG (LEVOTHROID) TAB PO SCH (06:48)
[2016-10-02] MEDS: RT-ALBUTEROL SULF 2.5 MG/3 ML PRE-MIX VIAL INH SCH ×4 (07:30→20:02)
--- NOTE | 2016-10-02 08:08 | Progress Note (SOAP) ---
Subjective Subjective/Events-last exam pneumonia. Lung cancer. COPD. Diabetes. Weakness. Patient feeling better but having trouble getting around. To get physical therapy Objective Exam Vital Signs Date Time Temp Pulse Resp B/P Pulse Ox O2 Delivery O2 Flow Rate FiO2 10/02/16 00:00 98.9 114 16 108/52 94 Nasal Cannula 1.00 10/01/16 21:54 98 160/70 10/01/16 20:00 Nasal Cannula 2.00 10/01/16 16:00 97.9 120 20 127/53 94 Nasal Cannula 1.00 10/01/16 10:51 2.00 10/01/16 08:11 98.4 100 18 156/82 94 Nasal Cannula 1.00 10/01/16 08:10 95 2.00 I & O 10/02/16 07:00 Intake Total 2890 ml Output Total 1100 ml Balance 1790 ml Capillary Refill : Less Than 3 Seconds General Appearance: No Apparent Distress Thin HEENT: Normal ENT Inspection Neck: Full Range of Motion Normal Inspection Non Tender Respiratory: Chest Non Tender No Accessory Muscle Use No Respiratory Distress Decreased Breath Sounds Cardiovascular: Regular Rate, Rhythm No Murmur Gastrointestinal: non tender soft Results Lab Laboratory Tests 10/01/16 12:23: Glucometer 108 10/01/16 16:08: Glucometer 186H 10/01/16 20:43: Glucometer 187H 10/02/16 05:37: Glucometer 105 Microbiology 09/26/16 Blood Culture - Preliminary, Resulted No growth 09/26/16 Influenza Types A,B Antigen (BOB) - Final, Complete Assessment/Plan Assessment/Plan Assess & Plan/Chief Complaint pneumonia. Metastatic lung cancer. 2 brain area Diabetes. . 09/29/16. Pneumonia lower left lung with metastatic lung cancer to the brain. Non-small cell cancer. Sepsis syndrome. Still smoking. Patient is improving. Patient still weak. Patient still congested. . 10/02/16. Pneumonia. Metastatic lung cancer. Metastasis to brain. Smoking still. Diabetes. Weakness. Have physical therapy to get patient walking better. Diagnosis/Problems: Clinical Quality Measures DVT/VTE Risk/Contraindication: Risk Factor Score Per Nursin RFS Level Per Nursing on Admit: 4+=Very High KERON RONDON DO Oct 02, 2016 08:08
[2016-10-02] MEDS: VANCOMYCIN IV ADD-VANTAGE 1,000 MG in SODIUM CHLORIDE (ADD-VANTAGE) 250 ML IV SCH ×2 (08:39→20:33)
[2016-10-02] MEDS: lisINopril 5 MG (PRINIVIL) TABLET PO SCH (08:39)
[2016-10-02] MEDS: PROMETHAZINE/ CODEINE SYRUP 5 ML UDC PO SCH ×3 (08:39→22:16)
[2016-10-02] MEDS: D5 1/2 NS 1000 ML IV SOLUTION 1,000 ML IV SCH (08:47)
[2016-10-02] MEDS ORDERED: LEVOFLOXACIN 750 MG/150 ML IV 150 ML IV SCH (09:00)
[2016-10-02] MEDS: RT-ADVAIR HFA 115/21 MCG PER PUFF IH SCH ×2 (10:50→20:04)
[2016-10-02 12:00] VITALS: BP 164/70
--- NOTE | 2016-10-02 14:12 | Physical Therapy Evaluation ---
PT Evaluation-General Medical Diagnosis Admission Date Sep 26, 2016 at 18:05 Medical Diagnosis: pneumonia Onset Date: Sep 26, 2016 Therapy Diagnosis Therapy Diagnosis: debility/weakness Height/Weight Height (Feet): 5 Height (Inches): 4.00 Weight (Pounds): 104 Weight (Ounces): 0.0 Precautions Precautions/Isolations: Fall Prevention, Standard Precautions Referral Physician: Yara Reason for Referral: Evaluation/Treatment Medical History Pertinent Medical History: COPD, DM, HTN, Smoking Additional Medical History lung cancer with mets to brain; has received radiation and is currently on chemo Current History current everyday smoker and goes outside to smoke as a patient in the hospital Reviewed History: Yes Social History Home: Single Level Current Living Status: Alone Prior/Core FIM Prior Level of Function Functional Moore Measure 0=Not Assessed/NA 4=Minimal Assistance 1=Total Assistance 5=Supervision or Setup 2=Maximal Assistance 6=Modified Moore 3=Moderate Assistance 7=Complete Moore Bed Mobility: 7 Transfers (B,C,W/C) (FIM): 7 Gait: 7 patient would like to return to [place] and drive PT Evaluation-Current Subjective Patient rolls her eyes at PT with suggestion of evaluation. She reluctantly agrees. Pain Numeric Pain Scale: 0-No Pain Location: No Pain Reported Objective Patient Orientation: Normal For Age Problem Solving: Good Attachments: IV ROM/Strength ROM Lower Extremities bilateral LE WFL Strenght Lower Extremities 4-/5 grossly bilateral LE Integumentary/Posture Integumentary refer to nursing notes Bowel Incontinence: No Bladder Incontinence: No Posture WNL Neuromuscular (Tone, Coordination, Reflexes) grossly intact Sensory Vision: Functional Hearing: Functional Sensation Right Lower Extremit: Impaired Sensation Left Lower Extremity: Impaired Transfers Functional Moore Measure 0=Not Assessed/NA 4=Minimal Assistance 1=Total Assistance 5=Supervision or Setup 2=Maximal Assistance 6=Modified Moore 3=Moderate Assistance 7=Complete Moore Transfers (B, C, W/C) (FIM): 6 Scootin Rollin Supine to/from Sit: 6 Sit to/from Stand: 6 Gait Mode of Locomotion: Walk Anticipated Mode of Locomotion: Walk Gait (FIM): 5 Distance (FIM): 3=150 ft Distance: 200' Gait Level of Assist: 5 Gait Assistive Device: FWW Comments/Gait Description safe and functional with FWW; patient has FWW established at home PLOF Balance Sitting Static: Normal Sitting Dynamic: Normal Standing Static: Normal Standing Dynamic: Normal Assessment/Needs 76 y.o. female, will benefit from short term skilled PT to address functional mobility to ensure safe return to home with home health intervention. SW notified of patient agreeing to receive home health PT to improve home safety mobility and to return to PLOF. Rehab Potential: Fair Post Rehab Potential-Barriers: metastatic cancer PT Short Term Goals Short Term Goals Time Frame: Oct 06, 2016 Transfers (B,C,W/C) (FIM): 6 Gait (FIM): 6 Distance (FIM): 3=150 ft Gait Level of Assist: 6 Gait Assistive Device: FWW PT Plan Problem List Problem List: Activity Tolerance, Functional Strength Treatment/Plan Treatment Plan: Continue Plan of Care Treatment Plan: Education, Functional Activity Trena, Functional Strength, Gait , Safety, Therapeutic Exercise, Transfers Treatment Duration: Oct 06, 2016 # of days/week 5 Visits Per Week: 5 Pt/Family Agrees w/Plan: Yes Safety Risks/Education Patient Education: Safety Issues Teaching Recipient: Patient Teaching Methods: Discussion Response to Teaching: Verbalize Understanding Discharge Recommendations Therapy D/C Recommendations: Physical Therapy Home Care Time/GCodes Time In: 1325 Time Out: 1345 Total Billed Treatment Time: 20 Total Billed Treatment 1 visit EVLowC 20 min G Codes Necessary: LIZETH Ospina PT Oct 02, 2016 14:12
[2016-10-02] MEDS: UMECLIDINIUM BROMIDE (INCRUSE ELLIPTA) 7'S IH SCH (15:00)
[2016-10-02 16:00] VITALS: BP 106/49
[2016-10-02] MEDS ORDERED: CEFEPIME INJECTION 2,000 MG in NS (IVPB) 50 ML IV SCH (21:00)
[2016-10-02] MEDS: SIMvastatin 20 MG (ZOCOR) TAB PO SCH (22:16)
[2016-10-02] MEDS: eZETimibe 10 MG (ZETIA) TABLET PO SCH (22:16)
[2016-10-03 01:02] VITALS: BP 145/65
[2016-10-03] MEDS: HYDROcodone/APAP 5 MG/325 MG (LORTAB) TAB PO PRN ×2 (01:06→06:33)
[2016-10-03] MEDS: NYSTATIN ORAL SUSP 5 ML UDC PO SCH ×3 (01:06→11:27)
[2016-10-03] MEDS: inSUlin (REGULAR) HUMAN 1 UNIT/0.01 ML (CHARGE PER UNIT) SC SCH ×2 (06:00→11:00)
[2016-10-03 06:19] VITALS: BP 132/62
[2016-10-03] MEDS: LEVOTHYROXINE 50 MCG (LEVOTHROID) TAB PO SCH (06:33)
[2016-10-03] MEDS: ENOXAPARIN 40 MG/0.4 ML (LOVENOX) SYR SC SCH (06:34)
[2016-10-03 07:14] LABS: BASOPHILS # (AUTO) 0.1 10^3/uL (0.0-0.1); BASOPHILS % (AUTO) 1 % (0-10); EOSINOPHILS # (AUTO) 0.1 10^3/uL (0.0-0.3); EOSINOPHILS % (AUTO) 1 % (0-10); LYMPHOCYTES # (AUTO) 1.4 X 10^3 (1.0-4.0); LYMPHOCYTES % (AUTO) 20 % (12-44); MEAN CORPUSCULAR HEMOGLOBIN 30 PG (25-34); MEAN CORPUSCULAR HGB CONC 31 G/DL (32-36); MEAN CORPUSCULAR VOLUME 95 FL (80-99); MEAN PLATELET VOLUME 8.7 FL (7.4-10.4); MONOCYTES # (AUTO) 1.1 X 10^3 (0.0-1.0); MONOCYTES % (AUTO) 14 % (0-12); NEUTROPHILS # (AUTO) 4.7 X 10^3 (1.8-7.8); NEUTROPHILS % (AUTO) 64 % (42-75); PLATELET COUNT 251 10^3/uL (130-400); RED CELL DISTRIBUTION WIDTH 17.4 % (10.0-14.5); WHITE BLOOD COUNT 7.3 10^3/uL (4.3-11.0)
[2016-10-03 07:30] LABS: ANION GAP 10 MMOL/L (5-14); BLOOD UREA NITROGEN 6 MG/DL (7-18); BUN/CREATININE RATIO 11; CALCIUM 8.2 MG/DL (8.5-10.1); CARBON DIOXIDE 25 MMOL/L (21-32); CHLORIDE 104 MMOL/L (98-107); CREATININE SERUM 0.57 MG/DL (0.60-1.30); GFR ESTIMATED > 60; GLUCOSE 99 MG/DL (70-105); POTASSIUM 3.7 MMOL/L (3.6-5.0); SODIUM 139 MMOL/L (135-145)
[2016-10-03] MEDS: RT-ALBUTEROL SULF 2.5 MG/3 ML PRE-MIX VIAL INH SCH (07:51)
[2016-10-03] MEDS: RT-ADVAIR HFA 115/21 MCG PER PUFF IH SCH (07:51)
--- NOTE | 2016-10-03 08:11 | Progress Note (SOAP) ---
Subjective Subjective/Events-last exam patient feeling better today. Patient wants to go home. 2 DC the IV and antibiotics as per patient's request. Nurse to call at 11 a.m. Pneumonia. Lung cancer. Metastatic brain cancer Objective Exam Vital Signs Date Time Temp Pulse Resp B/P Pulse Ox O2 Delivery O2 Flow Rate FiO2 10/03/16 07:56 Nasal Cannula 2.00 10/03/16 07:52 98 10/03/16 07:30 98.1 10/03/16 06:19 98.1 92 22 132/62 96 Room Air 10/03/16 05:45 89 10/03/16 01:02 98.3 115 20 145/65 97 Room Air 10/02/16 20:00 Nasal Cannula 2.00 10/02/16 16:00 99.4 131 16 106/49 95 Nasal Cannula 1.00 10/02/16 15:12 94 10/02/16 12:00 98.7 131 18 164/70 96 Nasal Cannula 1.00 I & O 10/03/16 07:00 Intake Total 2280 ml Balance 2280 ml Capillary Refill : Less Than 3 Seconds General Appearance: No Apparent Distress Thin HEENT: Normal ENT Inspection Neck: Full Range of Motion Normal Inspection Respiratory: No Accessory Muscle Use No Respiratory Distress Decreased Breath Sounds Other (ejection) Cardiovascular: Regular Rate, Rhythm No Murmur Gastrointestinal: non tender soft Results Lab Laboratory Tests 10/02/16 11:51: Glucometer 90 10/02/16 16:20: Glucometer 139H 10/02/16 22:16: Glucometer 111H 10/03/16 06:16: Glucometer 87 10/03/16 07:00: Anion Gap 10, BUN/Creatinine Ratio 11, Basophils # (Auto) 0.1, Basophils (%) ( Auto) 1, Blood Urea Nitrogen 6L, Calcium Level 8.2L, Carbon Dioxide Level 25, Chloride Level 104, Creatinine 0.57L, Eosinophils # (Auto) 0.1, Eosinophils (%) (Auto) 1, Estimat Glomerular Filtration Rate > 60, Glucose Level 99, Hematocrit 33L, Hemoglobin 10.4L, Lymphocytes # (Auto) 1.4, Lymphocytes (%) (Auto) 20, Mean Corpuscular Hemoglobin 30, Mean Corpuscular Hemoglobin Concent 31L, Mean Corpuscular Volume 95, Mean Platelet Volume 8.7, Monocytes # (Auto) 1.1H, Monocytes (%) (Auto) 14H, Neutrophils # (Auto) 4.7, Neutrophils (%) (Auto) 64, Platelet Count 251, Potassium Level 3.7, Red Blood Count 3.50L, Red Cell Distribution Width 17.4H, Sodium Level 139, White Blood Count 7.3 Microbiology 09/26/16 Blood Culture - Final, Complete No growth 09/26/16 Influenza Types A,B Antigen (BOB) - Final, Complete Assessment/Plan Assessment/Plan Assess & Plan/Chief Complaint pneumonia. Metastatic lung cancer. 2 brain area Diabetes. . 09/29/16. Pneumonia lower left lung with metastatic lung cancer to the brain. Non-small cell cancer. Sepsis syndrome. Still smoking. Patient is improving. Patient still weak. Patient still congested. . 10/02/16. Pneumonia. Metastatic lung cancer. Metastasis to brain. Smoking still. Diabetes. Weakness. Have physical therapy to get patient walking better. . 10/03/16 pneumonia. Lung cancer. Smoking. Weakness. Diabetes. Tachycardia due to albuterol and smoking. Patient feeling better and wants to go home today . Diagnosis/Problems: Clinical Quality Measures DVT/VTE Risk/Contraindication: Risk Factor Score Per Nursin RFS Level Per Nursing on Admit: 4+=Very High KERON RONDON DO Oct 03, 2016 08:11
[2016-10-03 08:14] VITALS: BP 107/53
[2016-10-03] MEDS: lisINopril 5 MG (PRINIVIL) TABLET PO SCH (08:58)
[2016-10-03] MEDS: PROMETHAZINE/ CODEINE SYRUP 5 ML UDC PO SCH (08:58)
[2016-10-03] MEDS ORDERED: LEVO500T2 PO (11:07)
[2016-10-03 11:31] VITALS: BP 107/53
--- NOTE | 2016-10-04 18:30 | Discharge Summary ---
Diagnosis/Chief Complaint Date of Admission Sep 26, 2016 at 18:05 Date of Discharge Oct 03, 2016 at 11:35 Discharge Date: Admission Diagnosis Admission Diagnosis pneumonia. Sepsis. Lung cancer with metastasis to brain. Diabetes. Anemia. Had chemotherapy on Sunday. Tobacco usage still. Hyperlipidemia. Hypertension Discharge Diagnosis sepsis. Chronic OBSTRUCTIVE pulmonary disease with acute exacerbation. Pneumonia. Malignant neoplasm right bronchus of lung. Metastasis to the brain. Cachexia. Dehydration. DO NOT RESUSCITATE. Anemia. Essential hypertension. Type II diabetes. Still smoking. Nicotine dependence. Anxiety. Hyperlipidemia. Tachycardia history. Personal history of the radiation Reason Hospital Visit feeling horrible. Has been weak and dehydrated and unable to stand up . patient had chemotherapy last Sunday patient not eating much. .patient came out to the emergency room yesterday afternoon. Patient chest x- ray shows hilar masses in pneumonia. Patient admitted Patient has history of lung cancer with metastasis to brain. Surgeries only port. Patient states she's been coughing and congestion. Patient still smokes one pack a day. Family history denies asthma TB diabetes heart disease lung disease cancer. Patient and known diabetic. Discharge Summary Consultations oncology Discharge Physical Examination Allergies: Coded Allergies: benzonatate (Verified Allergy, Unknown, 06/27/15) cephalexin (Verified Allergy, Unknown, 09/26/16) PER DR. JUAREZ PATIENT ONLY ALLERGIC TO CEPHALEXIN, CAN TOLERATE OTHER CEPHLASPORINS. Uncoded Allergies: pollen (Allergy, Intermediate, 09/26/16) stuffed up nose Vitals & I&Os Vital Signs Date Time Temp Pulse Resp B/P Pulse Ox O2 Delivery O2 Flow Rate FiO2 10/03/16 11:31 116 16 107/53 96 10/03/16 08:14 98.0 Room Air 10/03/16 07:56 2.00 10/03/16 07:52 98 Hospital Course patient hospital did better. Patient wanted to be discharged. Patient stronger and able to get around better Labs (last 24 hrs) Laboratory Tests 09/26/16 17:07: Activated Partial Thromboplast Time 29, Alanine Aminotransferase (ALT/SGPT) 10, Albumin 3.3, Alkaline Phosphatase 66, Anion Gap 9, Aspartate Amino Transf (AST/ SGOT) 12, BUN/Creatinine Ratio 18, Basophils # (Auto) 0.0, Basophils (%) (Auto) 0, Blood Morphology Comment NORMAL, Blood Urea Nitrogen 13, Calcium Level 8.5, Carbon Dioxide Level 25, Chloride Level 97L, Creatinine 0.72, Eosinophils # ( Auto) 0.0, Eosinophils (%) (Auto) 0, Estimat Glomerular Filtration Rate > 60, Glucose Level 119H, Hematocrit 31L, Hemoglobin 10.0L, INR Comment 1.0, Lactic Acid Level 1.3, Lymphocytes # (Auto) 0.5L, Lymphocytes % (Manual) 13, Lymphocytes (%) (Auto) 6L, Mean Corpuscular Hemoglobin 30, Mean Corpuscular Hemoglobin Concent 32, Mean Corpuscular Volume 93, Mean Platelet Volume 9.2, Monocytes # (Auto) 0.2, Monocytes % (Manual) 4, Monocytes (%) (Auto) 2, Neutrophils # (Auto) 6.9, Neutrophils % (Manual) 83, Neutrophils (%) (Auto) 92H , Platelet Count 331, Potassium Level 3.8, Prothrombin Time 12.8, Red Blood Count 3.33L, Red Cell Distribution Width 17.1H, Sodium Level 131L, Total Bilirubin 0.4, Total Protein 6.2L, White Blood Count 7.5 09/26/16 21:29: Glucometer 160H 09/27/16 05:22: Glucometer 227H 09/27/16 05:30: Alanine Aminotransferase (ALT/SGPT) 7, Albumin 2.9L, Alkaline Phosphatase 52, Anion Gap 11, Aspartate Amino Transf (AST/SGOT) 12, BUN/Creatinine Ratio 18, Basophils # (Auto) 0.0, Basophils (%) (Auto) 0, Blood Urea Nitrogen 12, Calcium Level 8.4L, Carbon Dioxide Level 20L, Chloride Level 106, Creatinine 0.68, Eosinophils # (Auto) 0.0, Eosinophils (%) (Auto) 0, Estimat Glomerular Filtration Rate > 60, Glucose Level 203H, Hematocrit 28L, Hemoglobin 8.9L, Lymphocytes # (Auto) 0.2L, Lymphocytes (%) (Auto) 6L, Mean Corpuscular Hemoglobin 30, Mean Corpuscular Hemoglobin Concent 32, Mean Corpuscular Volume 94, Mean Platelet Volume 9.4, Monocytes # (Auto) 0.0, Monocytes (%) (Auto) 1, Neutrophils # (Auto) 3.6, Neutrophils (%) (Auto) 93H, Platelet Count 287, Potassium Level 4.1, Red Blood Count 3.00L, Red Cell Distribution Width 17.1H, Sodium Level 137, Total Bilirubin 0.3, Total Protein 5.7L, White Blood Count 3.8L, Thyroid Stimulating Hormone (TSH) 1.35 09/27/16 12:35: Glucometer 356H 09/27/16 16:31: Glucometer 193H 09/27/16 21:37: Glucometer 199H 09/28/16 05:46: Glucometer 219H 09/28/16 06:18: Alanine Aminotransferase (ALT/SGPT) 12, Albumin 2.8L, Alkaline Phosphatase 46, Anion Gap 8, Aspartate Amino Transf (AST/SGOT) 11, BUN/Creatinine Ratio 18, Basophils # (Auto) 0.0, Basophils (%) (Auto) 0, Blood Urea Nitrogen 11, Calcium Level 8.2L, Carbon Dioxide Level 23, Chloride Level 105, Creatinine 0.61, Eosinophils # (Auto) 0.0, Eosinophils (%) (Auto) 0, Estimat Glomerular Filtration Rate > 60, Glucose Level 193H, Hematocrit 27L, Hemoglobin 8.5L, Lymphocytes # (Auto) 0.2L, Lymphocytes (%) (Auto) 8L, Mean Corpuscular Hemoglobin 30, Mean Corpuscular Hemoglobin Concent 32, Mean Corpuscular Volume 95, Mean Platelet Volume 9.4, Monocytes # (Auto) 0.0, Monocytes (%) (Auto) 1, Neutrophils # (Auto) 2.6, Neutrophils (%) (Auto) 91H, Platelet Count 288, Potassium Level 3.6, Red Blood Count 2.81L, Red Cell Distribution Width 17.2H, Sodium Level 136, Total Bilirubin 0.2, Total Protein 5.6L, White Blood Count 2.9L 09/28/16 11:26: Glucometer 230H 09/28/16 16:11: Glucometer 171H 09/28/16 20:55: Glucometer 214H 09/29/16 06:00: Alanine Aminotransferase (ALT/SGPT) 41, Albumin 2.7L, Alkaline Phosphatase 50, Anion Gap 9, Aspartate Amino Transf (AST/SGOT) 42H, BUN/Creatinine Ratio 20, Basophils # (Auto) 0.0, Basophils (%) (Auto) 0, Blood Urea Nitrogen 12, Calcium Level 7.9L, Carbon Dioxide Level 24, Chloride Level 106, Creatinine 0.61, Eosinophils # (Auto) 0.0, Eosinophils (%) (Auto) 0, Estimat Glomerular Filtration Rate > 60, Glucose Level 127H, Hematocrit 27L, Hemoglobin 8.5L, Lymphocytes # (Auto) 0.5L, Lymphocytes (%) (Auto) 16, Mean Corpuscular Hemoglobin 30, Mean Corpuscular Hemoglobin Concent 32, Mean Corpuscular Volume 95, Mean Platelet Volume 8.7, Monocytes # (Auto) 0.1, Monocytes (%) (Auto) 2, Neutrophils # (Auto) 2.8, Neutrophils (%) (Auto) 82H, Platelet Count 305, Potassium Level 3.7, Red Blood Count 2.83L, Red Cell Distribution Width 17.0H, Sodium Level 139, Total Bilirubin 0.2, Total Protein 5.3L, White Blood Count 3.4L 09/29/16 06:08: Glucometer 144H 09/29/16 10:51: Glucometer 161H 09/29/16 16:22: Glucometer 110 09/29/16 19:15: Vancomycin Level Trough 3.4L 09/29/16 20:52: Glucometer 129H 09/30/16 05:30: Anion Gap 7, BUN/Creatinine Ratio 19, Basophils # (Auto) 0.0, Basophils (%) ( Auto) 0, Blood Urea Nitrogen 12, Calcium Level 7.7L, Carbon Dioxide Level 26, Chloride Level 107, Creatinine 0.64, Eosinophils # (Auto) 0.1, Eosinophils (%) ( Auto) 1, Estimat Glomerular Filtration Rate > 60, Glucose Level 73, Hematocrit 31L, Hemoglobin 9.6L, Lymphocytes # (Auto) 1.3, Lymphocytes (%) (Auto) 28, Mean Corpuscular Hemoglobin 30, Mean Corpuscular Hemoglobin Concent 31L, Mean Corpuscular Volume 96, Mean Platelet Volume 8.3, Monocytes # (Auto) 0.3, Monocytes (%) (Auto) 6, Neutrophils # (Auto) 2.9, Neutrophils (%) (Auto) 65, Platelet Count 335, Potassium Level 3.8, Red Blood Count 3.22L, Red Cell Distribution Width 17.2H, Sodium Level 140, White Blood Count 4.5 09/30/16 11:50: Glucometer 98 09/30/16 17:04: Glucometer 140H 09/30/16 21:16: Glucometer 190H 10/01/16 06:17: Glucometer 139H 10/01/16 06:52: Vancomycin Level Trough 9.4L 10/01/16 12:23: Glucometer 108 10/01/16 16:08: Glucometer 186H 10/01/16 20:43: Glucometer 187H 10/02/16 05:37: Glucometer 105 10/02/16 11:51: Glucometer 90 10/02/16 16:20: Glucometer 139H 10/02/16 22:16: Glucometer 111H 10/03/16 06:16: Glucometer 87 10/03/16 07:00: Anion Gap 10, BUN/Creatinine Ratio 11, Basophils # (Auto) 0.1, Basophils (%) ( Auto) 1, Blood Urea Nitrogen 6L, Calcium Level 8.2L, Carbon Dioxide Level 25, Chloride Level 104, Creatinine 0.57L, Eosinophils # (Auto) 0.1, Eosinophils (%) (Auto) 1, Estimat Glomerular Filtration Rate > 60, Glucose Level 99, Hematocrit 33L, Hemoglobin 10.4L, Lymphocytes # (Auto) 1.4, Lymphocytes (%) (Auto) 20, Mean Corpuscular Hemoglobin 30, Mean Corpuscular Hemoglobin Concent 31L, Mean Corpuscular Volume 95, Mean Platelet Volume 8.7, Monocytes # (Auto) 1.1H, Monocytes (%) (Auto) 14H, Neutrophils # (Auto) 4.7, Neutrophils (%) (Auto) 64, Platelet Count 251, Potassium Level 3.7, Red Blood Count 3.50L, Red Cell Distribution Width 17.4H, Sodium Level 139, White Blood Count 7.3 10/03/16 09:58: Glucometer 107 10/03/16 11:17: Glucometer 95 Microbiology 09/26/16 Blood Culture - Final, Complete No growth 09/26/16 Influenza Types A,B Antigen (BOB) - Final, Complete Laboratory Tests 09/26/16 17:07 09/27/16 05:30 09/28/16 06:18 09/29/16 06:00 09/30/16 05:30 10/03/16 07:00 Pending Labs Microbiology Date/Time Source Procedure Growth Status 09/26/16 17:30 Peripheral Lt Ac Blood Culture - Final No growth Complete 09/26/16 17:07 Port Port, Nos Blood Culture - Final No growth Complete 09/26/16 16:52 Nasopharynx Influenza Types A,B Antigen (BOB) - Final Complete Laboratory Tests 09/26/16 17:07: Activated Partial Thromboplast Time 29, Alanine Aminotransferase (ALT/SGPT) 10, Albumin 3.3, Alkaline Phosphatase 66, Anion Gap 9, Aspartate Amino Transf (AST/ SGOT) 12, BUN/Creatinine Ratio 18, Basophils # (Auto) 0.0, Basophils (%) (Auto) 0, Blood Morphology Comment NORMAL, Blood Urea Nitrogen 13, Calcium Level 8.5, Carbon Dioxide Level 25, Chloride Level 97, Creatinine 0.72, Eosinophils # (Auto ) 0.0, Eosinophils (%) (Auto) 0, Estimat Glomerular Filtration Rate > 60, Glucose Level 119, Hematocrit 31, Hemoglobin 10.0, INR Comment 1.0, Lactic Acid Level 1.3, Lymphocytes # (Auto) 0.5, Lymphocytes % (Manual) 13, Lymphocytes (%) (Auto) 6, Mean Corpuscular Hemoglobin 30, Mean Corpuscular Hemoglobin Concent 32 , Mean Corpuscular Volume 93, Mean Platelet Volume 9.2, Monocytes # (Auto) 0.2, Monocytes % (Manual) 4, Monocytes (%) (Auto) 2, Neutrophils # (Auto) 6.9, Neutrophils % (Manual) 83, Neutrophils (%) (Auto) 92, Platelet Count 331, Potassium Level 3.8, Prothrombin Time 12.8, Red Blood Count 3.33, Red Cell Distribution Width 17.1, Sodium Level 131, Total Bilirubin 0.4, Total Protein 6.2, White Blood Count 7.5 09/26/16 21:29: Glucometer 160 09/27/16 05:22: Glucometer 227 09/27/16 05:30: Alanine Aminotransferase (ALT/SGPT) 7, Albumin 2.9, Alkaline Phosphatase 52, Anion Gap 11, Aspartate Amino Transf (AST/SGOT) 12, BUN/Creatinine Ratio 18, Basophils # (Auto) 0.0, Basophils (%) (Auto) 0, Blood Urea Nitrogen 12, Calcium Level 8.4, Carbon Dioxide Level 20, Chloride Level 106, Creatinine 0.68, Eosinophils # (Auto) 0.0, Eosinophils (%) (Auto) 0, Estimat Glomerular Filtration Rate > 60, Glucose Level 203, Hematocrit 28, Hemoglobin 8.9, Lymphocytes # (Auto) 0.2, Lymphocytes (%) (Auto) 6, Mean Corpuscular Hemoglobin 30, Mean Corpuscular Hemoglobin Concent 32, Mean Corpuscular Volume 94, Mean Platelet Volume 9.4, Monocytes # (Auto) 0.0, Monocytes (%) (Auto) 1, Neutrophils # (Auto) 3.6, Neutrophils (%) (Auto) 93, Platelet Count 287, Potassium Level 4.1, Red Blood Count 3.00, Red Cell Distribution Width 17.1, Sodium Level 137, Total Bilirubin 0.3, Total Protein 5.7, White Blood Count 3.8 , Thyroid Stimulating Hormone (TSH) 1.35 09/27/16 12:35: Glucometer 356 09/27/16 16:31: Glucometer 193 09/27/16 21:37: Glucometer 199 09/28/16 05:46: Glucometer 219 09/28/16 06:18: Alanine Aminotransferase (ALT/SGPT) 12, Albumin 2.8, Alkaline Phosphatase 46, Anion Gap 8, Aspartate Amino Transf (AST/SGOT) 11, BUN/Creatinine Ratio 18, Basophils # (Auto) 0.0, Basophils (%) (Auto) 0, Blood Urea Nitrogen 11, Calcium Level 8.2, Carbon Dioxide Level 23, Chloride Level 105, Creatinine 0.61, Eosinophils # (Auto) 0.0, Eosinophils (%) (Auto) 0, Estimat Glomerular Filtration Rate > 60, Glucose Level 193, Hematocrit 27, Hemoglobin 8.5, Lymphocytes # (Auto) 0.2, Lymphocytes (%) (Auto) 8, Mean Corpuscular Hemoglobin 30, Mean Corpuscular Hemoglobin Concent 32, Mean Corpuscular Volume 95, Mean Platelet Volume 9.4, Monocytes # (Auto) 0.0, Monocytes (%) (Auto) 1, Neutrophils # (Auto) 2.6, Neutrophils (%) (Auto) 91, Platelet Count 288, Potassium Level 3.6, Red Blood Count 2.81, Red Cell Distribution Width 17.2, Sodium Level 136, Total Bilirubin 0.2, Total Protein 5.6, White Blood Count 2.9 09/28/16 11:26: Glucometer 230 09/28/16 16:11: Glucometer 171 09/28/16 20:55: Glucometer 214 09/29/16 06:00: Alanine Aminotransferase (ALT/SGPT) 41, Albumin 2.7, Alkaline Phosphatase 50, Anion Gap 9, Aspartate Amino Transf (AST/SGOT) 42, BUN/Creatinine Ratio 20, Basophils # (Auto) 0.0, Basophils (%) (Auto) 0, Blood Urea Nitrogen 12, Calcium Level 7.9, Carbon Dioxide Level 24, Chloride Level 106, Creatinine 0.61, Eosinophils # (Auto) 0.0, Eosinophils (%) (Auto) 0, Estimat Glomerular Filtration Rate > 60, Glucose Level 127, Hematocrit 27, Hemoglobin 8.5, Lymphocytes # (Auto) 0.5, Lymphocytes (%) (Auto) 16, Mean Corpuscular Hemoglobin 30, Mean Corpuscular Hemoglobin Concent 32, Mean Corpuscular Volume 95, Mean Platelet Volume 8.7, Monocytes # (Auto) 0.1, Monocytes (%) (Auto) 2, Neutrophils # (Auto) 2.8, Neutrophils (%) (Auto) 82, Platelet Count 305, Potassium Level 3.7, Red Blood Count 2.83, Red Cell Distribution Width 17.0, Sodium Level 139, Total Bilirubin 0.2, Total Protein 5.3, White Blood Count 3.4 09/29/16 06:08: Glucometer 144 09/29/16 10:51: Glucometer 161 09/29/16 16:22: Glucometer 110 09/29/16 19:15: Vancomycin Level Trough 3.4 09/29/16 20:52: Glucometer 129 09/30/16 05:30: Anion Gap 7, BUN/Creatinine Ratio 19, Basophils # (Auto) 0.0, Basophils (%) ( Auto) 0, Blood Urea Nitrogen 12, Calcium Level 7.7, Carbon Dioxide Level 26, Chloride Level 107, Creatinine 0.64, Eosinophils # (Auto) 0.1, Eosinophils (%) ( Auto) 1, Estimat Glomerular Filtration Rate > 60, Glucose Level 73, Hematocrit 31, Hemoglobin 9.6, Lymphocytes # (Auto) 1.3, Lymphocytes (%) (Auto) 28, Mean Corpuscular Hemoglobin 30, Mean Corpuscular Hemoglobin Concent 31, Mean Corpuscular Volume 96, Mean Platelet Volume 8.3, Monocytes # (Auto) 0.3, Monocytes (%) (Auto) 6, Neutrophils # (Auto) 2.9, Neutrophils (%) (Auto) 65, Platelet Count 335, Potassium Level 3.8, Red Blood Count 3.22, Red Cell Distribution Width 17.2, Sodium Level 140, White Blood Count 4.5 2 11:50: Glucometer 98 09/30/16 17:04: Glucometer 140 09/30/16 21:16: Glucometer 190 10/01/16 06:17: Glucometer 139 10/01/16 06:52: Vancomycin Level Trough 9.4 10/01/16 12:23: Glucometer 108 10/01/16 16:08: Glucometer 186 10/01/16 20:43: Glucometer 187 10/02/16 05:37: Glucometer 105 10/02/16 11:51: Glucometer 90 10/02/16 16:20: Glucometer 139 10/02/16 22:16: Glucometer 111 10/03/16 06:16: Glucometer 87 10/03/16 07:00: Anion Gap 10, BUN/Creatinine Ratio 11, Basophils # (Auto) 0.1, Basophils (%) ( Auto) 1, Blood Urea Nitrogen 6, Calcium Level 8.2, Carbon Dioxide Level 25, Chloride Level 104, Creatinine 0.57, Eosinophils # (Auto) 0.1, Eosinophils (%) ( Auto) 1, Estimat Glomerular Filtration Rate > 60, Glucose Level 99, Hematocrit 33, Hemoglobin 10.4, Lymphocytes # (Auto) 1.4, Lymphocytes (%) (Auto) 20, Mean Corpuscular Hemoglobin 30, Mean Corpuscular Hemoglobin Concent 31, Mean Corpuscular Volume 95, Mean Platelet Volume 8.7, Monocytes # (Auto) 1.1, Monocytes (%) (Auto) 14, Neutrophils # (Auto) 4.7, Neutrophils (%) (Auto) 64, Platelet Count 251, Potassium Level 3.7, Red Blood Count 3.50, Red Cell Distribution Width 17.4, Sodium Level 139, White Blood Count 7.3 10/03/16 09:58: Glucometer 107 10/03/16 11:17: Glucometer 95 Other pending tests chest x-ray increased size of right hilar mass and surrounding infiltrate increased. Infiltrate left lung base. 10/01/16 decreased in right perihilar region. In remaining infiltrate stable Discussion & Recommendations patient felt better and wanted to go home. Patient stronger. Discharge Home Medications: Active Scripts Active Levaquin (Levofloxacin) 500 Mg Tablet 500 Mg PO DAILY Reported Hydrocodon -Acetaminophen 5-325 (Hydrocodone/Acetaminophen) 1 Each Tablet 1 Tab PO Q6H PRN Ventolin Hfa (Albuterol Sulfate) 18 Gm Hfa.aer.ad 2 Puff INH Q4H PRN Lisinopril 2.5 Mg Tablet 2.5 Mg PO DAILY Symbicort 160-4.5 Mcg Inhaler (Budesonide/Formoterol Fumarate) 10.2 Gm Hfa.aer.ad 2 Puff IH BID Alprazolam 0.25 Mg Tablet 0.25 Mg PO TID PRN Levothyroxine Sodium 50 Mcg Tablet 50 Mcg PO DAILY Albuterol Sulfate 2.5 Mg/0.5 Ml Vial.neb 2.5 Mg NEB Q4H PRN Promethazine-Codeine Syrup (Promethazine HCl/Codeine) 118 Ml Syrup 2 Tsp PO TID Metformin HCl 500 Mg Tablet 500 Mg PO TIDWM PRN Vytorin 10-20 mg Tablet (Ezetimibe/Simvastatin) 1 Each Tablet 1 Tab PO DAILY Spiriva (Tiotropium [place]) 18 Mcg Cap.w.dev 1 Cap IH 1400 Instructions to patient/family Please see electonic discharge instructions given to patient. Clinical Quality Measures DVT/VTE Risk/Contraindication: Risk Factor Score Per Nursin RFS Level Per Nursing on Admit: 4+=Very High KERON RONDON DO Oct 04, 2016 18:30
== END 2016-10-03 11:35 | disposition home or self-care (01) | DRG 871 ==
LOC: EDUNIT# 16:43 → ER 16:44 → 4TH 18:05
PROVIDERS: ADMIT Internal Medicine Hematology & Oncology; ATTEND Family Medicine
DX: A41.9 Sepsis, unspecified organism (principal); J44.0 Chronic obstructive pulmonary disease with (acute) lower respiratory infection; J18.9 Pneumonia, unspecified organism; C34.91 Malignant neoplasm of unspecified part of right bronchus or lung; C79.31 Secondary malignant neoplasm of brain; J96.10 Chronic respiratory failure, unspecified whether with hypoxia or hypercapnia; R64 Cachexia; E86.0 Dehydration; Z66 Do not resuscitate; D64.9 Anemia, unspecified; I10 Essential (primary) hypertension; E11.9 Type 2 diabetes mellitus without complications; E03.9 Hypothyroidism, unspecified; F17.210 Nicotine dependence, cigarettes, uncomplicated; F41.9 Anxiety disorder, unspecified; E78.5 Hyperlipidemia, unspecified; R00.0 Tachycardia, unspecified; T48.6X5A Adverse effect of antiasthmatics, initial encounter; Z79.84 Long term (current) use of oral hypoglycemic drugs; Z92.3 Personal history of irradiation; Z92.21 Personal history of antineoplastic chemotherapy
CPT/HCPCS: 36415; 71010; 71020; 80048; 80053; 80202; 82962; 83605; 84443; 85007; 85025; 85027; 85610; 85730; 87040; 87804; 93005; 94640; 94760; 96361; 96365; 96375

== ENCOUNTER 2016-11-06 09:57 | Outpatient (RCR) | payer MEDICARE, OTHER ==
--- OUTSIDE RECORDS SUMMARY | 2016-09-04 10:07 | XMS REPORT | Continuity of Care Document ---
Author Author [facility] Organization [facility] Address Unknown Phone Unavailable Care Team Providers Care Organizational Research Consultant Name Role Phone KERON RONDON DO PCP Insurance Providers Payer Name Policy Number Subscriber Name Relationship Wps Medicare [id number] Mirza Maxwell 18 Self / Same As Patient Self Pay Fin Plater Supervisor Review [phone] Mirza Maxwell 18 Self / Same As Patient Advance Directives Directive Response Recorded Date/Time Advance Directives No 10/10/15 3:29pm Health Care Power of Manager Support Services Kendall ТАТЬЯНА CARDOZOELDA MORENO 10/10/15 3:29pm Organ [...] 2 (500MG) TABS IN AM 05/02/11 Tiotropium [place] 18 Mcg 1 Cap Inhalation Daily @ [...] Discharge/Depart Date Attending Provider Discharged Recurring [facility] 02/28/16 10:02am 11:59pm ANIKET DIMAS Registered Clinic [facility] 02/22/16 10:00am RAMOS SWEENEY Registered Clinic [facility] 02/15/16 9:41am RAMOS SWEENEY
[2016-09-04 10:25] LABS: BASOPHILS # (AUTO) 0.1 10^3/uL (0.0-0.1); BASOPHILS % (AUTO) 1 % (0-10); EOSINOPHILS % (AUTO) 0 % (0-10); LYMPHOCYTES # (AUTO) 1.6 X 10^3 (1.0-4.0); LYMPHOCYTES % (AUTO) 16 % (12-44); MEAN CORPUSCULAR HEMOGLOBIN 30 PG (25-34); MEAN CORPUSCULAR HGB CONC 32 G/DL (32-36); MEAN CORPUSCULAR VOLUME 95 FL (80-99); MEAN PLATELET VOLUME 8.9 FL (7.4-10.4); MONOCYTES # (AUTO) 0.7 X 10^3 (0.0-1.0); MONOCYTES % (AUTO) 7 % (0-12); NEUTROPHILS # (AUTO) 7.9 X 10^3 (1.8-7.8); NEUTROPHILS % (AUTO) 77 % (42-75); PLATELET COUNT 377 10^3/uL (130-400); RED BLOOD COUNT 3.82 10^6/uL (4.35-5.85); RED CELL DISTRIBUTION WIDTH 16.8 % (10.0-14.5); WHITE BLOOD COUNT 10.2 10^3/uL (4.3-11.0)
[2016-09-04 11:05] LABS: ANION GAP 8 MMOL/L (5-14); BLOOD UREA NITROGEN 11 MG/DL (7-18); BUN/CREATININE RATIO 16; CALCIUM 9.3 MG/DL (8.5-10.1); CARBON DIOXIDE 26 MMOL/L (21-32); CHLORIDE 102 MMOL/L (98-107); CREATININE SERUM 0.68 MG/DL (0.60-1.30); GFR ESTIMATED > 60; GLUCOSE 109 MG/DL (70-105); POTASSIUM 4.1 MMOL/L (3.6-5.0); SODIUM 136 MMOL/L (135-145)
[2016-09-11 11:05] LABS: BASOPHILS % (AUTO) 1 % (0-10); EOSINOPHILS % (AUTO) 1 % (0-10); LYMPHOCYTES # (AUTO) 1.2 X 10^3 (1.0-4.0); LYMPHOCYTES % (AUTO) 19 % (12-44); MEAN CORPUSCULAR HEMOGLOBIN 30 PG (25-34); MEAN CORPUSCULAR HGB CONC 32 G/DL (32-36); MEAN CORPUSCULAR VOLUME 95 FL (80-99); MEAN PLATELET VOLUME 8.2 FL (7.4-10.4); MONOCYTES # (AUTO) 0.3 X 10^3 (0.0-1.0); MONOCYTES % (AUTO) 5 % (0-12); NEUTROPHILS # (AUTO) 4.5 X 10^3 (1.8-7.8); NEUTROPHILS % (AUTO) 74 % (42-75); PLATELET COUNT 270 10^3/uL (130-400); RED BLOOD COUNT 3.63 10^6/uL (4.35-5.85); RED CELL DISTRIBUTION WIDTH 16.7 % (10.0-14.5)
[2016-09-11 11:31] LABS: ANION GAP 9 MMOL/L (5-14); BLOOD UREA NITROGEN 13 MG/DL (7-18); BUN/CREATININE RATIO 18; CALCIUM 8.5 MG/DL (8.5-10.1); CARBON DIOXIDE 25 MMOL/L (21-32); CHLORIDE 102 MMOL/L (98-107); CREATININE SERUM 0.72 MG/DL (0.60-1.30); GFR ESTIMATED > 60; GLUCOSE 172 MG/DL (70-105); POTASSIUM 3.9 MMOL/L (3.6-5.0); SODIUM 136 MMOL/L (135-145)
[2016-09-18 10:24] LABS: BASOPHILS % (AUTO) 1 % (0-10); EOSINOPHILS % (AUTO) 0 % (0-10); LYMPHOCYTES # (AUTO) 1.3 X 10^3 (1.0-4.0); LYMPHOCYTES % (AUTO) 19 % (12-44); MEAN CORPUSCULAR HEMOGLOBIN 31 PG (25-34); MEAN CORPUSCULAR HGB CONC 32 G/DL (32-36); MEAN CORPUSCULAR VOLUME 95 FL (80-99); MEAN PLATELET VOLUME 8.4 FL (7.4-10.4); MONOCYTES # (AUTO) 0.4 X 10^3 (0.0-1.0); MONOCYTES % (AUTO) 6 % (0-12); NEUTROPHILS % (AUTO) 74 % (42-75); PLATELET COUNT 176 10^3/uL (130-400); RED CELL DISTRIBUTION WIDTH 17.7 % (10.0-14.5); WHITE BLOOD COUNT 6.7 10^3/uL (4.3-11.0)
[2016-09-18 11:06] LABS: ANION GAP 10 MMOL/L (5-14); BLOOD UREA NITROGEN 12 MG/DL (7-18); BUN/CREATININE RATIO 16; CALCIUM 9.3 MG/DL (8.5-10.1); CARBON DIOXIDE 25 MMOL/L (21-32); CHLORIDE 101 MMOL/L (98-107); CREATININE SERUM 0.75 MG/DL (0.60-1.30); GFR ESTIMATED > 60; GLUCOSE 157 MG/DL (70-105); POTASSIUM 4.7 MMOL/L (3.6-5.0); SODIUM 136 MMOL/L (135-145)
[2016-09-25 10:57] LABS: BASOPHILS % (AUTO) 0 % (0-10); EOSINOPHILS # (AUTO) 0.1 10^3/uL (0.0-0.3); EOSINOPHILS % (AUTO) 1 % (0-10); LYMPHOCYTES # (AUTO) 1.7 X 10^3 (1.0-4.0); LYMPHOCYTES % (AUTO) 21 % (12-44); MEAN CORPUSCULAR HEMOGLOBIN 30 PG (25-34); MEAN CORPUSCULAR HGB CONC 31 G/DL (32-36); MEAN CORPUSCULAR VOLUME 95 FL (80-99); MEAN PLATELET VOLUME 8.9 FL (7.4-10.4); MONOCYTES # (AUTO) 0.8 X 10^3 (0.0-1.0); MONOCYTES % (AUTO) 10 % (0-12); NEUTROPHILS # (AUTO) 5.5 X 10^3 (1.8-7.8); NEUTROPHILS % (AUTO) 68 % (42-75); PLATELET COUNT 366 10^3/uL (130-400); RED BLOOD COUNT 3.48 10^6/uL (4.35-5.85); RED CELL DISTRIBUTION WIDTH 17.5 % (10.0-14.5); WHITE BLOOD COUNT 8.1 10^3/uL (4.3-11.0)
[2016-09-25 11:28] LABS: ALANINE AMINOTRANSFERASE 8 U/L (0-55); ALBUMIN 3.5 G/DL (3.2-4.5); ANION GAP 9 MMOL/L (5-14); ASPARTATE AMINO TRANSFERASE 10 U/L (5-34); BILIRUBIN,TOTAL 0.3 MG/DL (0.1-1.0); BLOOD UREA NITROGEN 9 MG/DL (7-18); BUN/CREATININE RATIO 14; CALCIUM 8.8 MG/DL (8.5-10.1); CARBON DIOXIDE 25 MMOL/L (21-32); CHLORIDE 102 MMOL/L (98-107); CREATININE SERUM 0.66 MG/DL (0.60-1.30); GFR ESTIMATED > 60; GLUCOSE 114 MG/DL (70-105); POTASSIUM 4.1 MMOL/L (3.6-5.0); SODIUM 136 MMOL/L (135-145); TOTAL PROTEIN 6.6 G/DL (6.4-8.2)
[2016-10-09 10:43] LABS: BASOPHILS # (AUTO) 0.1 10^3/uL (0.0-0.1); BASOPHILS % (AUTO) 1 % (0-10); EOSINOPHILS # (AUTO) 0.1 10^3/uL (0.0-0.3); EOSINOPHILS % (AUTO) 1 % (0-10); LYMPHOCYTES % (AUTO) 15 % (12-44); MEAN CORPUSCULAR HEMOGLOBIN 30 PG (25-34); MEAN CORPUSCULAR HGB CONC 31 G/DL (32-36); MEAN CORPUSCULAR VOLUME 96 FL (80-99); MEAN PLATELET VOLUME 8.9 FL (7.4-10.4); MONOCYTES # (AUTO) 1.6 X 10^3 (0.0-1.0); MONOCYTES % (AUTO) 12 % (0-12); NEUTROPHILS # (AUTO) 9.5 X 10^3 (1.8-7.8); NEUTROPHILS % (AUTO) 72 % (42-75); PLATELET COUNT 463 10^3/uL (130-400); RED BLOOD COUNT 3.28 10^6/uL (4.35-5.85); RED CELL DISTRIBUTION WIDTH 18.5 % (10.0-14.5); WHITE BLOOD COUNT 13.2 10^3/uL (4.3-11.0)
[2016-10-09 11:35] LABS: ANION GAP 11 MMOL/L (5-14); BLOOD UREA NITROGEN 11 MG/DL (7-18); BUN/CREATININE RATIO 17; CALCIUM 8.6 MG/DL (8.5-10.1); CARBON DIOXIDE 24 MMOL/L (21-32); CHLORIDE 103 MMOL/L (98-107); CREATININE SERUM 0.65 MG/DL (0.60-1.30); GFR ESTIMATED > 60; GLUCOSE 76 MG/DL (70-105); POTASSIUM 4.3 MMOL/L (3.6-5.0); SODIUM 138 MMOL/L (135-145)
[2016-10-16 10:46] LABS: BASOPHILS % (AUTO) 1 % (0-10); EOSINOPHILS # (AUTO) 0.1 10^3/uL (0.0-0.3); EOSINOPHILS % (AUTO) 2 % (0-10); LYMPHOCYTES # (AUTO) 1.8 X 10^3 (1.0-4.0); LYMPHOCYTES % (AUTO) 27 % (12-44); MEAN CORPUSCULAR HEMOGLOBIN 29 PG (25-34); MEAN CORPUSCULAR HGB CONC 31 G/DL (32-36); MEAN CORPUSCULAR VOLUME 95 FL (80-99); MEAN PLATELET VOLUME 8.3 FL (7.4-10.4); MONOCYTES # (AUTO) 1.1 X 10^3 (0.0-1.0); MONOCYTES % (AUTO) 16 % (0-12); NEUTROPHILS # (AUTO) 3.8 X 10^3 (1.8-7.8); NEUTROPHILS % (AUTO) 55 % (42-75); PLATELET COUNT 555 10^3/uL (130-400); RED BLOOD COUNT 3.42 10^6/uL (4.35-5.85); RED CELL DISTRIBUTION WIDTH 17.3 % (10.0-14.5); WHITE BLOOD COUNT 6.8 10^3/uL (4.3-11.0)
--- NOTE | 2016-10-16 11:05 | Diagnostic Imaging Report ---
INDICATION: Lung cancer. PA and lateral chest obtained at 10:43 a.m. FINDINGS: Heart and mediastinal silhouette are normal in appearance. There is COPD change with hyperinflation and there are chronic appearing increased interstitial markings. There is improved aeration of the left base compared to the prior study. There is a mass lesion in the right upper lobe again noted with fullness in right hilum unchanged. Port-A-Cath is unchanged. IMPRESSION: Improvement in left basilar infiltrate compared to the previous study. Right upper lobe mass again noted with right hilar fullness. Dictated by: Dictated on workstation # [id number]
[2016-10-16 11:29] LABS: ALANINE AMINOTRANSFERASE 12 U/L (0-55); ALBUMIN 3.3 G/DL (3.2-4.5); ANION GAP 12 MMOL/L (5-14); ASPARTATE AMINO TRANSFERASE 16 U/L (5-34); BILIRUBIN,TOTAL 0.2 MG/DL (0.1-1.0); BLOOD UREA NITROGEN 9 MG/DL (7-18); BUN/CREATININE RATIO 14; CALCIUM 8.6 MG/DL (8.5-10.1); CARBON DIOXIDE 22 MMOL/L (21-32); CHLORIDE 104 MMOL/L (98-107); CREATININE SERUM 0.64 MG/DL (0.60-1.30); GFR ESTIMATED > 60; GLUCOSE 71 MG/DL (70-105); POTASSIUM 4.2 MMOL/L (3.6-5.0); SODIUM 138 MMOL/L (135-145); TOTAL PROTEIN 6.7 G/DL (6.4-8.2)
[~2016-11-06] VITALS: Ht 162.6 cm; Wt 44.5 kg
[~2016-11-06 09:57] MED LIST changes: +BUDE10.2 IH; +GEMCITABINE HCL IV SCH; +HYDR-3812 PO; +LEVO500T2 PO; +LISI2.5T PO; +NS IV 1000 ML (CANCER CTR) 1,000 ML ONE; +NS IV 500 ML (CANCER CENTER) IV SCH; +NS IV SCH; +ONDANSETRON 16 MG, DEXAMETHASONE 10 MG/NS 50 ML IVPB IV SCH; +RT-ALBUINH INH
[2016-11-06 10:29] LABS: BASOPHILS # (AUTO) 0.1 10^3/uL (0.0-0.1); BASOPHILS % (AUTO) 1 % (0-10); EOSINOPHILS # (AUTO) 0.1 10^3/uL (0.0-0.3); EOSINOPHILS % (AUTO) 1 % (0-10); LYMPHOCYTES % (AUTO) 21 % (12-44); MEAN CORPUSCULAR HEMOGLOBIN 28 PG (25-34); MEAN CORPUSCULAR HGB CONC 31 G/DL (32-36); MEAN CORPUSCULAR VOLUME 91 FL (80-99); MEAN PLATELET VOLUME 8.3 FL (7.4-10.4); MONOCYTES # (AUTO) 1.1 X 10^3 (0.0-1.0); MONOCYTES % (AUTO) 12 % (0-12); NEUTROPHILS # (AUTO) 6.3 X 10^3 (1.8-7.8); NEUTROPHILS % (AUTO) 66 % (42-75); PLATELET COUNT 402 10^3/uL (130-400); RED BLOOD COUNT 3.58 10^6/uL (4.35-5.85); RED CELL DISTRIBUTION WIDTH 16.4 % (10.0-14.5); WHITE BLOOD COUNT 9.6 10^3/uL (4.3-11.0)
[2016-11-06 10:50] LABS: ALANINE AMINOTRANSFERASE 6 U/L (0-55); ALBUMIN 3.3 G/DL (3.2-4.5); ANION GAP 11 MMOL/L (5-14); ASPARTATE AMINO TRANSFERASE 12 U/L (5-34); BILIRUBIN,TOTAL 0.3 MG/DL (0.1-1.0); BLOOD UREA NITROGEN 12 MG/DL (7-18); BUN/CREATININE RATIO 17; CALCIUM 8.6 MG/DL (8.5-10.1); CARBON DIOXIDE 24 MMOL/L (21-32); CHLORIDE 102 MMOL/L (98-107); GFR ESTIMATED > 60; GLUCOSE 106 MG/DL (70-105); POTASSIUM 4.3 MMOL/L (3.6-5.0); SODIUM 137 MMOL/L (135-145); TOTAL PROTEIN 6.6 G/DL (6.4-8.2)
[2016-11-17] MEDS ORDERED: METH5TAB86 PO (15:57)
[2016-11-20] MEDS ORDERED: MORP100S3 PO (11:10)
[2016-11-20] MEDS ORDERED: LORA2ORA PO (11:10)
[2016-11-20] MEDS ORDERED: HYOS0.1218 SL (11:10)
== END 2016-12-03 | disposition home or self-care (01) ==
LOC: ONC 09:57
PROVIDERS: ATTEND Internal Medicine Hematology & Oncology
DX: Z51.11 Encounter for antineoplastic chemotherapy (principal); C34.11 Malignant neoplasm of upper lobe, right bronchus or lung; C79.31 Secondary malignant neoplasm of brain; J44.9 Chronic obstructive pulmonary disease, unspecified; E11.9 Type 2 diabetes mellitus without complications; I10 Essential (primary) hypertension; E78.5 Hyperlipidemia, unspecified; E03.9 Hypothyroidism, unspecified; F17.210 Nicotine dependence, cigarettes, uncomplicated; Z79.899 Other long term (current) drug therapy
CPT/HCPCS: 36415; 36591; 71020; 80048; 80053; 85025; 96375; 96413; 99213

== ENCOUNTER 2016-11-17 11:58 | Inpatient (IN) | payer MEDICARE ==
[~2016-11-17] VITALS: Ht 162.6 cm; Wt 44.5 kg
[~2016-11-17 11:58] MED LIST changes: -GEMCITABINE HCL IV SCH; -NS IV 1000 ML (CANCER CTR) 1,000 ML ONE; -NS IV 500 ML (CANCER CENTER) IV SCH; -NS IV SCH; -ONDANSETRON 16 MG, DEXAMETHASONE 10 MG/NS 50 ML IVPB IV SCH
--- NOTE | 2016-11-17 12:08 | ED Neurological Problem ---
General Chief Complaint: Neuro-Stroke Like Symptoms Stated Complaint: WEAKNESS/FACIAL DROOPING Source: patient Exam Limitations: no limitations History of Present Illness Time seen by provider: 12:04 Initial Comments To ER with reports of generalized weakness, slurred speech, left facial droop. The symptoms began sometime this morning but the patient does not know what time stating "well I didn't look at the clock". She arrives per EMS from home. She currently has metastatic lung cancer. She is a smoker. 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 She is DO NOT RESUSCITATE/DO NOT INTUBATE status. Associated Symptoms: No confusion, No nausea/vomiting, slurred speech Allergies and Home Medications Allergies Coded Allergies: benzonatate (Verified Allergy, Unknown, 06/27/15) cephalexin (Verified Allergy, Unknown, 09/26/16) PER DR. JUAREZ PATIENT ONLY ALLERGIC TO CEPHALEXIN, CAN TOLERATE OTHER CEPHLASPORINS. Uncoded Allergies: pollen (Allergy, Intermediate, 09/26/16) stuffed up nose Home Medications Albuterol Sulfate 2.5 Mg/0.5 Ml Vial.neb, 2.5 MG NEB Q4H PRN for SHORTNESS OF BREATH, (Reported) Albuterol Sulfate 18 Gm Hfa.aer.ad, 2 PUFF INH Q4H PRN for SHORTNESS OF BREATH, (Reported) Alprazolam 0.25 Mg Tablet, 0.25 MG PO TID PRN for ANXIETY, (Reported) Budesonide/Formoterol Fumarate 10.2 Gm Hfa.aer.ad, 2 PUFF IH BID, (Reported) Ezetimibe/Simvastatin 1 Each Tablet, 1 TAB PO DAILY, (Reported) Hydrocodone/Acetaminophen 1 Each Tablet, 1 TAB PO Q6H PRN for PAIN, (Reported) Levofloxacin 500 Mg Tablet, 500 MG PO DAILY, #5 Prescribed by: VIOLET ROY on 10/03/16 1107 Levothyroxine Sodium 50 Mcg Tablet, 50 MCG PO DAILY, (Reported) Lisinopril 2.5 Mg Tablet, 2.5 MG PO DAILY, (Reported) Metformin HCl 500 Mg Tablet, 500 MG PO TIDWM PRN for BS ABOVE 100, (Reported) Promethazine HCl/Codeine 118 Ml Syrup, 2 TSP PO TID, (Reported) Tiotropium [place] 18 Mcg Cap.w.dev, 1 CAP IH 1400, (Reported) Constitutional: see HPI Eyes: No Symptoms Reported Ears, Nose, Mouth, Throat: no symptoms reported Respiratory: no symptoms reported Cardiovascular: no symptoms reported Genitourinary: no symptoms reported Musculoskeletal: no symptoms reported Skin: no symptoms reported Psychiatric/Neurological: See HPI, Denies Headache, Denies Numbness, Denies [place] Seizures, Denies Tingling Endocrine: No Symptoms Reported Hematologic/Lymphatic: No Symptoms Reported Past Iulowyh-Eygiyb-Qtxhgw Hx Patient Social History Type Used: Cigarettes Recent Hopitalizations: No Immunizations Up To Date Tetanus Booster (TDap): Unknown PED Vaccines UTD: Yes Date of Pneumonia Vaccine: Jun 20, 2016 Date of Influenza Vaccine: Jun 20, 2016 Seasonal Allergies Seasonal Allergies: Yes (pollen ) Surgeries HX Surgeries: Yes (C/S X2, PORT PLACEMENT; CARDIAC CATH-NO INTERVENTION; CATARACTS) Surgeries: Section, Eye Surgery Respiratory Hx Respiratory Disorders: Yes (CHRONIC RESPIRATORY FAILURE; LUNG CANCER WITH BRAIN METS--DX 05/2015) Respiratory Disorders: Pneumonia, Chronic Bronchitis, COPD, Emphysema Cardiovascular Hx Cardiac Disorders: Yes (TAKES LISINOPRIL FOR KIDNEYS, HEART CATH 6YRS AGO- NO INTERVENTION) Cardiac Disorders: High Cholesterol, Hypertension Neurological Hx Neurological Disorders: Yes (BRAIN METS FROM LUNG CANCER) Reproductive System Hx Reproductive Disorders: No Sexually Transmitted Disease: No HIV/AIDS: No Female Reproductive Disorders: Denies 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 Genitourinary Hx Genitourinary Disorders: No Gastrointestinal Hx Gastrointestinal Disorders: Yes Gastrointestinal Disorders: Chronic Constipation Musculoskeletal Hx Musculoskeletal Disorders: Yes (SPINAL STENOSIS-INJECTIONS HELPED PAIN IN PAST) Musculoskeletal Disorders: Degenerate Disk Disease, Arthritis, Chronic Back Pain Endocrine Hx Endocrine Disorders: Yes Endocrine Disorders: Hypothyroidsim, Diabetes, Non-Insulin dep HEENT HX ENT Disorders: Yes (CATARCT SURGERY, READING GLASSES) HEENT Disorders: Cataract Loss of Vision: Denies Hearing Impairment: Denies Cancer Hx Cancer: Yes (HAS METS TO BRAIN-10 RADIATION TX AND CURRENTLY ON CHEMO OF 09/26/16) Cancer: Lung Psychosocial Hx Psychiatric Problems: Yes Behavioral Health Disorders: Anxiety Integumentary HX Skin/Integumentary Disorder: No Blood Transfusions Hx Blood Disorders: No Adverse Reaction to a Blood Tr: No Family Medical History Family Medial History: FH: coronary artery disease 19 FATHER Physical Exam Vital Signs Vital Sign - Last 12Hours 11/17/16 12:03 Temp 96.3 Pulse 106 Resp 18 B/P (MAP) 141/94 Pulse Ox 100 O2 Delivery Room Air Capillary Refill : General Appearance: WD/WN, no apparent distress HEENT: PERRL/EOMI, normal ENT inspection Neck: non-tender, full range of motion Respiratory: no respiratory distress, no accessory muscle use Cardiovascular: regular rate, rhythm, no murmur Gastrointestinal: normal bowel sounds, non tender, soft Extremities: normal range of motion, non-tender Neurologic/Psychiatric: alert, normal mood/affect, oriented x 3, other (she does have some left lower facial droop that is very minor. Speech is somewhat slurred though I do not know her baseline. Additionally, there is minor ataxia of the left arm.) Motor/Sensory: no sensory deficit, no pronator drift Skin: normal color, warm/dry, other (erythema of the left lower leg which patient states is not a new finding.) Stroke Onset of Symptoms Date of Onset of Symptoms: Nov 17, 2016 Onset of Symptoms: Yes Symptoms onset unknown: Yes NIH Stroke Scale Assessment Select: Initial Level of Consciousness: 0=Alert Level of Consciousness-Questio: 0=Answers both month/age LOC Commands: 0=Performs both tasks Gaze: 0=Normal Visual Dietrich: 0=No visual loss Facial Movement (Facial Paresi: 1=Minor paralysis Motor Function-Arms Right: 0=No drift Motor Function-Arms Left: 0=No drift Motor Function-Legs Right: 0=No drift Motor Function-Legs Left: 0=No drift Limb Ataxia: 1=Present in one limb Sensory: 0=Normal:no loss Best Language: 0=No aphasia Dysarthria: 1=Mild to moderate loss Extinction & Inattention: 0=No abnormality NIH Stroke Scale Score: 3 Progress/Results/Core Measures Results/Orders Lab Results Laboratory Tests Test 11/17/16 12:33 11/17/16 12:50 Range/Units White Blood Count 5.5 4.3-11.0 10^3/uL Red Blood Count 4.29 L 4.35-5.85 10^6/uL Hemoglobin 11.7 11.5-16.0 G/DL Hematocrit 38 35-52 % Mean Corpuscular Volume 88 80-99 FL Mean Corpuscular Hemoglobin 27 25-34 PG Mean Corpuscular Hemoglobin Concent 31 L 32-36 G/DL Red Cell Distribution Width 15.4 H 10.0-14.5 % Platelet Count 347 130-400 10^3/uL Mean Platelet Volume 9.1 7.4-10.4 FL Neutrophils (%) (Auto) 61 42-75 % Lymphocytes (%) (Auto) 24 12-44 % Monocytes (%) (Auto) 12 0-12 % Eosinophils (%) (Auto) 3 0-10 % Basophils (%) (Auto) 1 0-10 % Neutrophils # (Auto) 3.4 1.8-7.8 X 10^3 Lymphocytes # (Auto) 1.3 1.0-4.0 X 10^3 Monocytes # (Auto) 0.7 0.0-1.0 X 10^3 Eosinophils # (Auto) 0.1 0.0-0.3 10^3/uL Basophils # (Auto) 0.0 0.0-0.1 10^3/uL Prothrombin Time 12.1 L 12.2-14.7 SEC INR Comment 0.9 0.8-1.4 Activated Partial Thromboplast Time 25 24-35 SEC D-Dimer 0.62 H 0.00-0.49 UG/ML Sodium Level 138 135-145 MMOL/L Potassium Level 3.9 3.6-5.0 MMOL/L Chloride Level 101 98-107 MMOL/L Carbon Dioxide Level 29 21-32 MMOL/L Anion Gap 8 5-14 MMOL/L Blood Urea Nitrogen 10 7-18 MG/DL Creatinine 0.69 0.60-1.30 MG/DL Estimat Glomerular Filtration Rate > 60 BUN/Creatinine Ratio 14 Glucose Level 105 70-105 MG/DL Calcium Level 9.1 8.5-10.1 MG/DL Total Bilirubin 0.3 0.1-1.0 MG/DL Aspartate Amino Transf (AST/SGOT) 14 5-34 U/L Alanine Aminotransferase (ALT/SGPT) 7 0-55 U/L Alkaline Phosphatase 95 40-136 U/L Troponin I < 0.30 <0.30 NG/ML Total Protein 7.4 6.4-8.2 G/DL Albumin 3.6 3.2-4.5 G/DL Glucometer 102 70-110 MG/DL My Orders Orders - SANTIAGO MENON APRN Cbc With Automated Diff (11/17/16 12:03) Protime With Inr (11/17/16 12:03) Partial Thromboplastin Time (11/17/16 12:03) Comprehensive Metabolic Panel (11/17/16 12:03) Fibrin Degradation Products (11/17/16 12:03) Troponin I (11/17/16 12:03) Ua Culture If Indicated (11/17/16 12:03) Chest 1 View, Ap/Pa Only (11/17/16 12:03) Ekg Tracing (11/17/16 12:03) Nothing By Mouth (11/17/16 Dinner) Accucheck Stat ONCE (11/17/16 12:03) Saline Lock/Iv-Start (11/17/16 12:03) Saline Lock/Iv-Start (11/17/16 12:03) Vital Signs-Stroke Q1H (11/17/16 12:03) Ct Head Wo-R/O Stroke (11/17/16 12:03) O2 (11/17/16 12:03) Intake & Output 06,14,22 (11/17/16 12:03) Monitor-Rhythm Ecg Trace Only (11/17/16 12:03) Dysphagia Screening Tool (11/17/16 12:03) Post Thrombolytic Adminstratio (11/17/16 12:03) Vital Signs/I&O Vital Sign - Last 12Hours 11/17/16 12:03 Temp 96.3 Pulse 106 Resp 18 B/P (MAP) 141/94 Pulse Ox 100 O2 Delivery Room Air Diagnostic Imaging Diagonstic Imaging: Xray, CT Plain Films/CT/US/NM/MRI: chest, head Comments NAME: MIRZA JAMES Jennifer [facility] REC#: [id number] PT STATUS: REG ER : 1940 PHYSICIAN: SANTIAGO MENON APRN ADMIT DATE: 11/17/16/ER Draft Date of Exam:11/17/16 CHEST 1 VIEW, AP/PA ONLY EXAMINATION: Portable upright radiograph of the chest. INDICATION: Weakness and facial drooping. FINDINGS: There is a right perihilar mass and right suprahilar nodule, similar to 10/16/2016. Background pulmonary hyperinflation is seen. There is an infusion port with the tip at the SVC level without significant change. IMPRESSION: COPD. Stable right perihilar and upper lobe masses. Dictated on workstation # [id number] Dict: 11/17/16 1232 Trans: 11/17/16 1237 [id number] Interpreted by: RADHA DIAZ MD Electronically signed by: NAME: MIRZA JAMES [facility] REC#: [id number] PT STATUS: REG ER : 1940 PHYSICIAN: SANTIAGO MENON APRN ADMIT DATE: 11/17/16/ER Draft Date of Exam:11/17/16 CT HEAD WO-R/O STROKE INDICATION: Lung cancer with metastases to the brain. COMPARISON: 10/26/2015 TECHNIQUE: Routine noncontrast CT of the head was performed. FINDINGS: Since the previous exam, there has been adverse interval progression of intracranial disease. There are now large areas of decreased attenuation involving the deep white matter with relative sparing of the patel-white matter junction. Partially calcified underlying masses are identified, bilaterally. Largest discernible mass is seen laterally on the right at the level of sylvian fissure and measures 2.7 cm in diameter (image 14, series 2). Deep white matter lesion in the left frontal lobe measures 1.1 cm. There may be focal mass within the convexity of left frontal lobe as well. Detail is somewhat suboptimally demonstrated given lack of IV contrast. Finally, there is asymmetric decreased attenuation of the right cerebellar hemisphere also suggestive of underlying metastatic lesion. There is some localized mass effect surrounding the masses. There is otherwise no midline shift or evidence of herniation. Basal cisterns are maintained. There is no evidence of intra-or extra-axial intracranial hemorrhage. Ventricles and cortical sulci are otherwise diffusely prominent consistent with age-related parenchymal volume loss. There is also background of chronic small vessel ischemic changes in the deep white matter. Bony calvarium is intact. Visualized portions of the paranasal sinuses are clear. There is partial opacification of mastoid air cells on the left. IMPRESSION: 1. Interval progression of metastatic intraparenchymal disease with surrounding edema within the cerebral and cerebellar hemispheres as described above. 2. No evidence of intracranial hemorrhage or herniation. Dictated on workstation # [id number] Dict: 11/17/16 1230 Trans: 11/17/16 1246 [id number] Interpreted by: MARKO FREIRE Electronically signed by: Departure Communication Time/Spoke to Admitting Phy: 13:16 Communication I discussed the case with Dr. Tate who is on-call for Dr. Martinez. We'll admit the patient, IV Protonix, IV Decadron and she will see the patient. We will consult family medicine. Family would prefer not to tell the patient at this point, they would like to discuss with oncology first and then they will discuss the diagnosis with the patient. I discussed this with Dr. Tate. I then did discuss with the patient and her family that her symptoms were not from a stroke (as she thought initially) but were rather from the progression of her cancer. Impression Impression: Primary Impression: metastatic lung cancer to brain Disposition: ADMITTED INPATIENT Condition: Stable Decision to Admit Reason: Admit from ER (General) Decision to Admit/Date: Nov 17, 2016 Time/Decision to Admit Time: 12:54 Departure-Patient Inst. Referrals: KERON RONDON DO (PCP/Family) Primary Care Physician SANTIAGO MENON APRN Nov 17, 2016 12:08
--- NOTE | 2016-11-17 12:38 | Diagnostic Imaging Report ---
EXAMINATION: Portable upright radiograph of the chest. INDICATION: Weakness and facial drooping. FINDINGS: There is a right perihilar mass and right suprahilar nodule, similar to 10/16/2016. Background pulmonary hyperinflation is seen. There is an infusion port with the tip at the SVC level without significant change. IMPRESSION: COPD. Stable right perihilar and upper lobe masses. Dictated by: Dictated on workstation # [id number]
[2016-11-17 12:39] LABS: BASOPHILS % (AUTO) 1 % (0-10); EOSINOPHILS # (AUTO) 0.1 10^3/uL (0.0-0.3); EOSINOPHILS % (AUTO) 3 % (0-10); LYMPHOCYTES # (AUTO) 1.3 X 10^3 (1.0-4.0); LYMPHOCYTES % (AUTO) 24 % (12-44); MEAN CORPUSCULAR HEMOGLOBIN 27 PG (25-34); MEAN CORPUSCULAR HGB CONC 31 G/DL (32-36); MEAN CORPUSCULAR VOLUME 88 FL (80-99); MEAN PLATELET VOLUME 9.1 FL (7.4-10.4); MONOCYTES # (AUTO) 0.7 X 10^3 (0.0-1.0); MONOCYTES % (AUTO) 12 % (0-12); NEUTROPHILS # (AUTO) 3.4 X 10^3 (1.8-7.8); NEUTROPHILS % (AUTO) 61 % (42-75); PLATELET COUNT 347 10^3/uL (130-400); RED BLOOD COUNT 4.29 10^6/uL (4.35-5.85); RED CELL DISTRIBUTION WIDTH 15.4 % (10.0-14.5); WHITE BLOOD COUNT 5.5 10^3/uL (4.3-11.0)
--- NOTE | 2016-11-17 12:47 | Diagnostic Imaging Report ---
INDICATION: Lung cancer with metastases to the brain. COMPARISON: 10/26/2015 TECHNIQUE: Routine noncontrast CT of the head was performed. FINDINGS: Since the previous exam, there has been adverse interval progression of intracranial disease. There are now large areas of decreased attenuation involving the deep white matter with relative sparing of the patel-white matter junction. Partially calcified underlying masses are identified, bilaterally. Largest discernible mass is seen laterally on the right at the level of sylvian fissure and measures 2.7 cm in diameter (image 14, series 2). Deep white matter lesion in the left frontal lobe measures 1.1 cm. There may be focal mass within the convexity of left frontal lobe as well. Detail is somewhat suboptimally demonstrated given lack of IV contrast. Finally, there is asymmetric decreased attenuation of the right cerebellar hemisphere also suggestive of underlying metastatic lesion. There is some localized mass effect surrounding the masses. There is otherwise no midline shift or evidence of herniation. Basal cisterns are maintained. There is no evidence of intra-or extra-axial intracranial hemorrhage. Ventricles and cortical sulci are otherwise diffusely prominent consistent with age-related parenchymal volume loss. There is also background of chronic small vessel ischemic changes in the deep white matter. Bony calvarium is intact. Visualized portions of the paranasal sinuses are clear. There is partial opacification of mastoid air cells on the left. IMPRESSION: 1. Interval progression of metastatic intraparenchymal disease with surrounding edema within the cerebral and cerebellar hemispheres as described above. 2. No evidence of intracranial hemorrhage or herniation. Dictated by: Dictated on workstation # [id number]
[2016-11-17 12:55] LABS: INR 0.9 (0.8-1.4); PROTHROMBIN TIME PATIENT 12.1 SEC (12.2-14.7)
[2016-11-17 13:03] LABS: ALANINE AMINOTRANSFERASE 7 U/L (0-55); ALBUMIN 3.6 G/DL (3.2-4.5); ANION GAP 8 MMOL/L (5-14); ASPARTATE AMINO TRANSFERASE 14 U/L (5-34); BILIRUBIN,TOTAL 0.3 MG/DL (0.1-1.0); BLOOD UREA NITROGEN 10 MG/DL (7-18); BUN/CREATININE RATIO 14; CALCIUM 9.1 MG/DL (8.5-10.1); CARBON DIOXIDE 29 MMOL/L (21-32); CHLORIDE 101 MMOL/L (98-107); CREATININE SERUM 0.69 MG/DL (0.60-1.30); GFR ESTIMATED > 60; GLUCOSE 105 MG/DL (70-105); POTASSIUM 3.9 MMOL/L (3.6-5.0); SODIUM 138 MMOL/L (135-145); TOTAL PROTEIN 7.4 G/DL (6.4-8.2)
[2016-11-17 13:09] LABS: TROPONIN I < 0.30 NG/ML (<0.30)
--- NOTE | 2016-11-17 14:28 | History & Physicial ---
History of Present Illness History of Present Illness Reason for visit/HPI This is a 76-year-old lady, patient of Dr. 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 She completed whole brain radiation on 06/16/2015 and has also received 12 cycles of carboplatin and Taxol and 5 cycles of single agent Gemzar as second line chemotherapy. She presented to the emergency room today with complaints of new onset left facial droop and increased weakness. CT of the head was performed and showed interval progression of her intraparenchymal metastatic disease with a decrease 3 masses having surrounding edema within the cerebellar and cerebral hemispheres. No intracranial hemorrhage or herniation was evident on the noncontrast CT scan. This morning she was reportedly complaining of nausea but at the time of this examination she denied having any nausea. I did advise initiation of Decadron 4 mg IV every 6 hours which was started in the emergency room. Family is at bedside and is aware that she is already been treated with whole brain radiation and she is not a candidate for surgical resection of her multiple brain metastasis and uncontrolled thoracic disease. I have discussed hospice care with patient and her family and they will consider and inform Dr. Hair of their decision. Date of Admission Nov 17, 2016 at 13:13 I consulted on this patient on 11/17/16 14:27 Attending Physician Ruba Hair Admitting Physician Desean Tipton DO Consult Allergies and Home Medications Allergies Coded Allergies: benzonatate (Verified Allergy, Unknown, 06/27/15) cephalexin (Verified Allergy, Unknown, 09/26/16) PER DR. JUAREZ PATIENT ONLY ALLERGIC TO CEPHALEXIN, CAN TOLERATE OTHER CEPHLASPORINS. Uncoded Allergies: pollen (Allergy, Intermediate, 09/26/16) stuffed up nose Home Medications Albuterol Sulfate 2.5 Mg/0.5 Ml Vial.neb, 2.5 MG NEB Q4H PRN for SHORTNESS OF BREATH, (Reported) Albuterol Sulfate 18 Gm Hfa.aer.ad, 2 PUFF INH Q4H PRN for SHORTNESS OF BREATH, (Reported) Alprazolam 0.25 Mg Tablet, 0.25 MG PO TID PRN for ANXIETY, (Reported) Budesonide/Formoterol Fumarate 10.2 Gm Hfa.aer.ad, 2 PUFF IH BID, (Reported) Ezetimibe/Simvastatin 1 Each Tablet, 1 TAB PO DAILY, (Reported) Hydrocodone/Acetaminophen 1 Each Tablet, 1 TAB PO Q6H PRN for PAIN, (Reported) Levothyroxine Sodium 50 Mcg Tablet, 50 MCG PO DAILY, (Reported) Lisinopril 2.5 Mg Tablet, 2.5 MG PO DAILY, (Reported) Metformin HCl 500 Mg Tablet, 500 MG PO TIDWM PRN for BS ABOVE 100, (Reported) Promethazine HCl/Codeine 118 Ml Syrup, 2 TSP PO TID, (Reported) Tiotropium [place] 18 Mcg Cap.w.dev, 1 CAP IH 1400, (Reported) Past Haiqijx-Jogxhv-Drfpdk Hx Patient Social History Alcohol Use: Denies Use Recreational Drug Use: No Smoking Status: Current Everyday Smoker Type Used: Cigarettes 2nd Hand Smoke Exposure: Yes Recent Foreign Travel: No Contact w/other who traveled: No Recent Hopitalizations: No Recent Infectious Disease Expo: No Immunizations Up To Date Tetanus Booster (TDap): Unknown Date of Pneumonia Vaccine: Jun 20, 2016 Date of Influenza Vaccine: Jun 20, 2016 Seasonal Allergies Seasonal Allergies: Yes (pollen ) Surgeries HX Surgeries: Yes (C/S X2, PORT PLACEMENT; CARDIAC CATH-NO INTERVENTION; CATARACTS) Surgeries: Section, Eye Surgery Respiratory Hx Respiratory Disorders: Yes (CHRONIC RESPIRATORY FAILURE; LUNG CANCER WITH BRAIN METS--DX 05/2015) Respiratory Disorders: COPD, Emphysema Cardiovascular Hx Cardiovascular Disorders: Yes (TAKES LISINOPRIL FOR KIDNEYS, HEART CATH 6YRS AGO-NO INTERVENTION) Cardiac Disorders: High Cholesterol, Hypertension Neurological Hx Neurological Disorders: Yes (BRAIN METS FROM LUNG CANCER) Reproductive System : No Hx Reproductive Disorders: No Sexually Transmitted Disease: No HIV/AIDS: No Female Reproductive Disorders: Denies Genitourinary Hx Genitourinary Disorders: No Gastrointestinal Hx Gastrointestinal Disorders: Yes Gastrointestinal Disorders: Chronic Constipation Musculoskeletal Hx Musculoskeletal Disorders: Yes (SPINAL STENOSIS-INJECTIONS HELPED PAIN IN PAST) Musculoskeletal Disorders: Degenerate Disk Disease, Arthritis, Chronic Back Pain Endocrine Hx Endocrine Disorders: Yes Endocrine Disorders: Hypothyroidsim, Diabetes, Non-Insulin dep HEENT HX ENT Disorders: Yes (CATARCT SURGERY, READING GLASSES) HEENT Disorders: Cataract Loss of Vision: Denies Hearing Impairment: Denies Cancer Hx Cancer: Yes (HAS METS TO BRAIN-10 RADIATION TX AND CURRENTLY ON CHEMO OF 09/26/16) Cancer: Lung Psychosocial Hx Psychiatric Problems: Yes Behavioral Health Disorders: Anxiety Integumentary HX Skin/Integumentary Disorder: No Blood Transfusions Hx Blood Disorders: No Adverse Reaction to a Blood Tr: No Family Medical History Family Hx: FH: coronary artery disease 19 FATHER Constitutional: see HPI, malaise, weakness EENTM: other (left facial droop), see HPI Respiratory: cough, short of breath Gastrointestinal: nausea, other (anorexia) Physical Exam Vital Signs Vital Sign - Last 12Hours 11/17/16 11/17/16 12:03 14:12 Temp 96.3 Pulse 106 Resp 18 B/P (MAP) 141/94 Pulse Ox 100 O2 Delivery Room Air O2 Flow Rate 2.00 Capillary Refill : Less Than 3 Seconds General Appearance: Chronically ill HEENT: Other (left facial droop) Respiratory: Crackles, Decreased Breath Sounds Cardiovascular: Tachycardia Gastrointestinal: Normal Bowel Sounds, Non Tender, Soft Rectal: Deferred Back: Normal Inspection, No CVA Tenderness, No Vertebral Tenderness Extremity: Non Tender, No Calf Tenderness Neurologic/Psychiatric: Oriented x3, Other (patient is somnolent but awakens to voice. Moves all 4 extremities. Gait not tested.) Comments Laboratory Tests 11/17/16 12:33 Laboratory Tests 11/17/16 12:33: Red Blood Count 4.29L, Mean Corpuscular Hemoglobin Concent 31L, Red Cell Distribution Width 15.4H, Prothrombin Time 12.1L, D-Dimer 0.62H 11/17/16 12:50: RADIOLOGY REVIEW: Routine noncontrast CT of the head was performed. FINDINGS: Since the previous exam, there has been adverse interval progression of intracranial disease. There are now large areas of decreased attenuation involving the deep white matter with relative sparing of the patel-white matter junction. Partially calcified underlying masses are identified, bilaterally. Largest discernible mass is seen laterally on the right at the level of sylvian fissure and measures 2.7 cm in diameter (image 14, series 2). Deep white matter lesion in the left frontal lobe measures 1.1 cm. There may be focal mass within the convexity of left frontal lobe as well. Detail is somewhat suboptimally demonstrated given lack of IV contrast. Finally, there is asymmetric decreased attenuation of the right cerebellar hemisphere also suggestive of underlying metastatic lesion. There is some localized mass effect surrounding the masses. There is otherwise no midline shift or evidence of herniation. Basal cisterns are maintained. There is no evidence of intra-or extra-axial intracranial hemorrhage. Ventricles and cortical sulci are otherwise diffusely prominent consistent with age-related parenchymal volume loss. There is also background of chronic small vessel ischemic changes in the deep white matter. Bony calvarium is intact. Visualized portions of the paranasal sinuses are clear. There is partial opacification of mastoid air cells on the left. IMPRESSION: 1. Interval progression of metastatic intraparenchymal disease with surrounding edema within the cerebral and cerebellar hemispheres as described above. 2. No evidence of intracranial hemorrhage or herniation. Chest x-ray done 11/17/16:FINDINGS: There is a right perihilar mass and right suprahilar nodule, similar to 10/16/2016. Background pulmonary hyperinflation is seen. There is an infusion port with the tip at the SVC levelwithout significant change. IMPRESSION: COPD. Stable right perihilar and upper lobe masses. Assessment/Plan Assessment and Plan 1. Left facial droop and increased weakness secondary to tumor progression with multiple brain metastases with surrounding edema in cerebral and cerebellar lesions. a. Patient has already received 3000 cGy whole brain radiation and has multiple masses as noted above as well as uncontrolled chest disease. 2. Poorly differentiated adenocarcinoma of the right lung stage IV at initial presentation with brain metastasis noted and treated in 2014; a. Has been receiving palliative chemotherapy most recently with single agent weekly gemcitabine which was on hold to allow patient to recover from recent pneumonia. 3. Patient is DO NOT RESUSCITATE 4. DVT prophylaxis; will use SCDs without pharmacologic intervention because of her multiple progressive intra-cerebral and cerebellar brain metastasis. Problems: Clinical Quality Measures DVT/VTE Prophylaxis Comfirm.Dx Pharmacological not ordered: [employer] neoplasm, Cancer-Active Stroke: Date of last known well: Nov 17, 2016 Symptoms onset unknown: Yes SALLY CORBETT MD Nov 17, 2016 14:28
[2016-11-17] MEDS ORDERED: NS IV 1000 ML 1,000 ML ONE (15:09)
[2016-11-17] MEDS ORDERED: CATHETER FLUSH 10 ML SYR IV PRN (15:30)
[2016-11-17] MEDS ORDERED: ONDANSETRON 4 MG/2 ML (SDV) Z0FRAN IV PRN (15:30)
[2016-11-17] MEDS: NS IV 1000 ML 1,000 ML IV SCH (15:50)
[2016-11-17] MEDS ORDERED: METH5TAB86 PO (15:57)
[2016-11-17] MEDS ORDERED: RT-ALBUTEROL SULF 2.5 MG/3 ML PRE-MIX VIAL IH PRN ×2 (16:00→16:30)
[2016-11-17] MEDS ORDERED: RT-ALBUTEROL HFA (VENTOLIN) PER PUFF IH PRN (16:15)
[2016-11-17] MEDS ORDERED: NON-FORMULARY MEDICATION 1 EA EA (Albuterol Sulfate 2.5 MG) NEB PRN (16:15)
[2016-11-17] MEDS ORDERED: RX-HYDROCODONE/APAP 5/325 MG #4 TAB PK PO PRN (16:15)
[2016-11-17] MEDS ORDERED: ALPRAZolam 0.25 MG (XANAX) TAB PO PRN (16:15)
[2016-11-17] MEDS ORDERED: HYDROcodone/APAP 5 MG/325 MG (LORTAB) TAB PO PRN (16:30)
[2016-11-17] MEDS: PANTOPRAZOLE 40 MG/10 ML (PROTONIX) VIAL IV SCH (16:33)
[2016-11-17 16:55] VITALS: BP 93/51
[2016-11-17] MEDS: DEXAMETHASONE 4 MG/ML SDV (DECADRON) IV SCH ×2 (18:15→23:51)
[2016-11-17] MEDS: RT-ALBUTEROL SULF 2.5 MG/3 ML PRE-MIX VIAL IH SCH ×2 (19:25→22:11)
[2016-11-17] MEDS: RT-ADVAIR HFA 115/21 MCG PER PUFF IH SCH (20:00)
[2016-11-17] MEDS: PROMETHAZINE/ CODEINE SYRUP 5 ML UDC PO SCH (20:32)
[2016-11-17 20:59] VITALS: BP 101/62
[2016-11-17] MEDS ORDERED: RT-SYMBICORT 160/4.5 MCG INHALER PER PUFF IH SCH (21:00)
[2016-11-18] VITALS: BP 130/78
[2016-11-18] MEDS: RT-ALBUTEROL SULF 2.5 MG/3 ML PRE-MIX VIAL IH SCH ×6 (02:22→22:00)
[2016-11-18] MEDS: NS IV 1000 ML 1,000 ML IV SCH ×2 (03:44→17:24)
[2016-11-18 04:00] VITALS: BP 143/75
[2016-11-18 05:04] LABS: BASOPHILS % (AUTO) 0 % (0-10); EOSINOPHILS % (AUTO) 0 % (0-10); LYMPHOCYTES # (AUTO) 0.8 X 10^3 (1.0-4.0); LYMPHOCYTES % (AUTO) 14 % (12-44); MEAN CORPUSCULAR HEMOGLOBIN 27 PG (25-34); MEAN CORPUSCULAR HGB CONC 31 G/DL (32-36); MEAN CORPUSCULAR VOLUME 89 FL (80-99); MEAN PLATELET VOLUME 9.4 FL (7.4-10.4); MONOCYTES # (AUTO) 0.1 X 10^3 (0.0-1.0); MONOCYTES % (AUTO) 1 % (0-12); NEUTROPHILS # (AUTO) 4.6 X 10^3 (1.8-7.8); NEUTROPHILS % (AUTO) 85 % (42-75); PLATELET COUNT 314 10^3/uL (130-400); RED CELL DISTRIBUTION WIDTH 15.3 % (10.0-14.5); WHITE BLOOD COUNT 5.4 10^3/uL (4.3-11.0)
[2016-11-18 05:22] LABS: ANION GAP 11 MMOL/L (5-14); BLOOD UREA NITROGEN 11 MG/DL (7-18); BUN/CREATININE RATIO 16; CALCIUM 8.4 MG/DL (8.5-10.1); CARBON DIOXIDE 21 MMOL/L (21-32); CHLORIDE 105 MMOL/L (98-107); GFR ESTIMATED > 60; GLUCOSE 171 MG/DL (70-105); MAGNESIUM 1.9 MG/DL (1.8-2.4); POTASSIUM 4.3 MMOL/L (3.6-5.0); SODIUM 137 MMOL/L (135-145)
[2016-11-18] MEDS: DEXAMETHASONE 4 MG/ML SDV (DECADRON) IV SCH ×3 (05:41→17:10)
[2016-11-18] MEDS: RT-ADVAIR HFA 115/21 MCG PER PUFF IH SCH ×2 (06:58→18:33)
[2016-11-18 08:00] VITALS: BP 138/73
[2016-11-18] MEDS ORDERED: NON-FORMULARY MEDICATION 1 EA EA (Lisinopril 2.5 MG) PO SCH (09:00)
[2016-11-18] MEDS: lisINopril 5 MG (PRINIVIL) TABLET PO SCH (09:06)
[2016-11-18] MEDS: PANTOPRAZOLE 40 MG/10 ML (PROTONIX) VIAL IV SCH (09:06)
--- NOTE | 2016-11-18 09:12 | Consultation ---
History of Present Illness History of Present Illness Patient Consulted On(severiano/time) 11/18/16 09:08 Date of Admission 11/17/16 History of Present Illness PT IS A 76 Y/O FEMALE WHO IS A CLINIC PATIENT OF DR. 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 SHE HAD SYMPTOMS OF STROKE OVER THE PAST FEW DAYS - WITH KNOWN METASTATIC DISEASE IN HER BRAIN. THE PATIENT WAS SEEN IN THE EMERGENCY DEPARTMENT AND FOUND TO HAVE PROGRESSION OF THE METASTATIC LESIONS IN HER BRAIN WITH SURROUNDING EDEMA CAUSING THE STROKE-LIKE SYMPTOMS. Allergies and Home Medications Allergies Coded Allergies: benzonatate (Verified Allergy, Unknown, 06/27/15) cephalexin (Verified Allergy, Unknown, 09/26/16) PER DR. JUAREZ PATIENT ONLY ALLERGIC TO CEPHALEXIN, CAN TOLERATE OTHER CEPHLASPORINS. Uncoded Allergies: pollen (Allergy, Intermediate, 09/26/16) stuffed up nose Home Medications Albuterol Sulfate 2.5 Mg/0.5 Ml Vial.neb, 2.5 MG NEB Q4H PRN for SHORTNESS OF BREATH, (Reported) Albuterol Sulfate 18 Gm Hfa.aer.ad, 2 PUFF INH Q4H PRN for SHORTNESS OF BREATH, (Reported) Alprazolam 0.25 Mg Tablet, 0.25 MG PO TID PRN for ANXIETY, (Reported) Budesonide/Formoterol Fumarate 10.2 Gm Hfa.aer.ad, 2 PUFF IH BID, (Reported) Ezetimibe/Simvastatin 1 Each Tablet, 1 TAB PO DAILY, (Reported) Hydrocodone/Acetaminophen 1 Each Tablet, 1-2 TAB PO Q4H PRN for PAIN, (Reported) Lisinopril 2.5 Mg Tablet, 2.5 MG PO DAILY, (Reported) Methylphenidate HCl 5 Mg Tablet, 5 MG PO DAILY, (Reported) Promethazine HCl/Codeine 118 Ml Syrup, 10 ML PO TID, (Reported) Tiotropium [place] 18 Mcg Cap.w.dev, 1 CAP IH 1400, (Reported) Past Xasridh-Rpjtzv-Bcmrld Hx Patient Social History Alcohol Use: Denies Use Recreational Drug Use: No Smoking Status: Current Everyday Smoker Type Used: Cigarettes 2nd Hand Smoke Exposure: Yes Recent Foreign Travel: No Contact w/Someone Who Travel: No Recent Infectious Disease Expo: No Recent Hopitalizations: No Physical Abuse Screen: No Sexual Abuse: No Immunizations Up To Date Tetanus Booster (TDap): Unknown PED Vaccines UTD: Yes Date of Pneumonia Vaccine: Jun 20, 2016 Date of Influenza Vaccine: Jun 20, 2016 Seasonal Allergies Seasonal Allergies: Yes (pollen ) Surgeries HX Surgeries: Yes (C/S X2, PORT PLACEMENT; CARDIAC CATH-NO INTERVENTION; CATARACTS) Surgeries: Section, Eye Surgery Respiratory Hx Respiratory Disorders: Yes (CHRONIC RESPIRATORY FAILURE; LUNG CANCER WITH BRAIN METS--DX 05/2015) Respiratory Disorders: Pneumonia, Chronic Bronchitis, COPD, Emphysema Cardiovascular Hx Cardiac Disorders: Yes (TAKES LISINOPRIL FOR KIDNEYS, HEART CATH 6YRS AGO- NO INTERVENTION) Cardiac Disorders: High Cholesterol, Hypertension Neurological Hx Neurological Disorders: Yes (BRAIN METS FROM LUNG CANCER) Reproductive System : No Hx Reproductive Disorders: No Sexually Transmitted Disease: No HIV/AIDS: No Female 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 Genitourinary Hx Genitourinary Disorders: No Gastrointestinal Hx Gastrointestinal Disorders: Yes Gastrointestinal Disorders: Chronic Constipation Musculoskeletal Hx Musculoskeletal Disorders: Yes (SPINAL STENOSIS-INJECTIONS HELPED PAIN IN PAST) Musculoskeletal Disorders: Degenerate Disk Disease, Arthritis, Chronic Back Pain Endocrine Hx Endocrine Disorders: Yes Endocrine Disorders: Hypothyroidsim, Diabetes, Non-Insulin dep HEENT HX ENT Disorders: Yes (CATARCT SURGERY, READING GLASSES) HEENT Disorders: Cataract Loss of Vision: Denies Hearing Impairment: Denies Cancer Hx Cancer: Yes (HAS METS TO BRAIN-10 RADIATION TX AND CURRENTLY ON CHEMO OF 09/26/16) Cancer: Lung Psychosocial Hx Psychiatric Problems: Yes Behavioral Health Disorders: Anxiety Integumentary HX Skin/Integumentary Disorder: No Blood Transfusions Hx Blood Disorders: No Adverse Reaction to a Blood Tr: No Reviewed Nursing Assessment Reviewed/Agree w Nursing PMH: Yes Family Medical History Significant Family History: Heart Disease Family Medial History: FH: coronary artery disease 19 FATHER Review of Systems-General Constitutional: No chills, No fever, malaise, weakness, weight loss EENTM: No blurred vision, No mouth pain, No throat pain Respiratory: No cough, dyspnea on exertion, short of breath Cardiovascular: No chest pain, No palpitations Gastrointestinal: No abdominal pain, No constipation, No diarrhea Genitourinary: no symptoms reported Musculoskeletal: No back pain, muscle weakness Skin: no symptoms reported Psychiatric/Neurological: Weakness All Other Systems Reviewed Negative Unless Noted: Yes Physical Exam-General Problems Physical Exam Vital Signs Vital Sign - Last 12Hours 11/17/16 11/17/16 12:03 14:12 Temp 96.3 Pulse 106 Resp 18 B/P (MAP) 141/94 Pulse Ox 100 O2 Delivery Room Air O2 Flow Rate 2.00 Capillary Refill : Less Than 3 Seconds General Appearance: no apparent distress, thin HEENT: PERRL/EOMI, pharynx normal Neck: non-tender, supple, normal inspection Respiratory: chest non-tender, decreased breath sounds Cardiovascular: regular rate, rhythm Gastrointestinal: normal bowel sounds, non tender, soft, no organomegaly, no pulsatile mass Rectal: deferred Extremities: normal range of motion, non-tender, no pedal edema, no calf tenderness Neurologic/Psychiatric: alert, normal mood/affect, oriented x 3 Skin: warm/dry Lymphatic: no adenopathy Assessment/Plan Assessment/Plan Admission Diagnosis/Plan METASTATIC ADENOCARCINOMA WITH ADVANCEMENT OF METASTATIC DISEASE IN BRAIN BRAIN METASTATIC DISEASE CAUSING STROKE-LIKE SYMPTOMS HYPERTENSION ANXIETY UNDERWEIGHT COPD METASTATIC ADENOCARCINOMA WITH ADVANCEMENT OF METASTATIC DISEASE IN BRAIN - BRAIN METASTATIC DISEASE CAUSING STROKE-LIKE SYMPTOMS - DEFER TREATMENT TO DR. DIMAS - THE FAMILY IS INTERESTED IN HOSPICE, BUT THINK THAT THEY WANT TO DO HOSPICE IN HER SON'S HOME WITH HER FAMILY MEMBERS WHO ARE NURSES DOING THE DAILY MANAGEMENT OF THE PATIENT'S SYMPTOMS AND WHEN THEY GET CLOSER TO THE END OF HER LIFE THEY MAY WANT TO CONSIDER FORM[facility] HOSPICE SERVICES. THEY WOULD LIKE TO DISCUSS WITH DR. DIMAS PRIOR TO MAKING ANY FINAL DECISIONS. HYPERTENSION - CONTINUE WITH LOW DOSE OF LISINOPRIL AT THIS TIME. ANXIETY - -RESUME HOME MEDICATIONS. 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
[2016-11-18] MEDS: PROMETHAZINE/ CODEINE SYRUP 5 ML UDC PO SCH ×3 (09:14→21:53)
--- NOTE | 2016-11-18 11:21 | Progress Note-Standard ---
Standard Progress Note Progress Notes/Assess & Plan Progress/Assessment & Plan 76-year-old female with the history of metastatic non-small cell lung cancer to the brain diagnosed in 2014 and underwent whole brain radiation therapy followed by palliative chemotherapy. Patient was brought to the hospital with mental status changes and noted to have multiple brain lesions with edema. She was started on dexamethasone with some improvement. She is somnolent but wakes up and answers questions fairly. The patient and family understands that she is not a candidate for surgical intervention for the brain metastasis or stereotactic radiation therapy because of numerous lesions as well as the size of the lesions. Admission CT scan was done without contrast and the exact sizes and edema of the lesions cannot be obtained although the largest lesion was measured as 2.7 cm. Patient and her family have expressed their wishes to continue with best supportive care. Patient would prefer to go home with hospice care and I will contact licensed social worker to try to arrange this but the family wanted time until Sunday to make some arrangements at home. I will continue the dexamethasone 4 mg IV every 6 hours now. I will add morphine 2 mg IV as needed for any discomfort and Valium 5 mg IV for any seizures as needed. She will continue as a DO NOT RESUSCITATE and we will proceed with best supportive care. ANIKET DIMAS Nov 18, 2016 11:21
[2016-11-18] MEDS ORDERED: DIAZEPAM INJ 10 MG/2 ML (VALIUM) SYR IV PRN (11:30)
[2016-11-18] MEDS ORDERED: TIOTROPIUM BROMIDE (SPIRIVA) 5'S INHALER IH SCH (14:00)
[2016-11-18] MEDS: UMECLIDINIUM BROMIDE (INCRUSE ELLIPTA) 7'S IH SCH (15:24)
[2016-11-18 16:22] VITALS: BP 108/57
[2016-11-18] MEDS: morphine INJ 4 MG/ML 1 ML (VIAL/SYRINGE) IVP PRN ×2 (17:43→21:54)
[2016-11-18 17:59] LABS: BILIRUBIN,URINE NEGATIVE (NEGATIVE); KETONES,URINE 1+ (NEGATIVE); LEUKOCYTE ESTERASE ,URINE 1+ (NEGATIVE); NITRITE,URINE NEGATIVE (NEGATIVE); PH,URINE 6 (5-9); PROTEIN,URINE NEGATIVE (NEGATIVE); UROBILINOGEN,URINE NORMAL (NORMAL)
[2016-11-18 18:07] LABS: SQUAMOUS EPITHELIAL CELL,UR 25-50 /HPF; WBC,URINE 0-2 /HPF
[2016-11-18] MEDS: SIMvastatin 20 MG (ZOCOR) TAB PO SCH (21:00)
[2016-11-18] MEDS: eZETimibe 10 MG (ZETIA) TABLET PO SCH (21:00)
[2016-11-19] MEDS: DEXAMETHASONE 4 MG/ML SDV (DECADRON) IV SCH ×5 (00:55→23:21)
[2016-11-19] MEDS: morphine INJ 4 MG/ML 1 ML (VIAL/SYRINGE) IVP PRN ×4 (00:55→23:22)
[2016-11-19 01:00] VITALS: BP 114/53
[2016-11-19] MEDS: RT-ALBUTEROL SULF 2.5 MG/3 ML PRE-MIX VIAL IH SCH ×5 (02:00→18:00)
[2016-11-19] MEDS: RT-ADVAIR HFA 115/21 MCG PER PUFF IH SCH ×2 (06:32→18:31)
[2016-11-19 08:00] VITALS: BP 150/77
[2016-11-19] MEDS: PANTOPRAZOLE 40 MG/10 ML (PROTONIX) VIAL IV SCH (09:00)
[2016-11-19] MEDS: PROMETHAZINE/ CODEINE SYRUP 5 ML UDC PO SCH ×3 (09:00→21:00)
[2016-11-19] MEDS: lisINopril 5 MG (PRINIVIL) TABLET PO SCH (09:00)
--- NOTE | 2016-11-19 09:03 | Progress Note (SOAP) ---
Subjective Subjective/Events-last exam PT IS A 76 Y/O FEMALE WHO IS A PATIENT OF DR. RONDON FOR WHOM I AM SR. 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 FAMILY HAS DECIDED UPON HOSPICE, MOVING PT TO HER SON'S HOUSE, AND CARE IN THE SON'S HOME. PT DENIES ANY ACUTE CONCERNS TODAY. FAMILY IS WONDERING ABOUT HOSPICE, HOW IT WORKS, AND IV ACCESS. PT HAS PORT - WILL ACCESS THE PORT TODAY. Review of Systems General: Fatigue, Malaise, Appetite (DECREASED) Pulmonary: No Dyspnea, No Cough Neurological: Confusion, Weakness Objective Exam Vital Signs Date Time Temp Pulse Resp B/P (MAP) Pulse Ox O2 Delivery O2 Flow Rate FiO2 11/19/16 06:32 95 11/19/16 01:00 98.4 84 18 114/53 95 Room Air 11/18/16 20:00 99 Nasal Cannula 2.00 11/18/16 18:34 93 11/18/16 16:22 98.7 81 20 108/57 97 Nasal Cannula 2.00 I & O 11/19/16 07:00 Intake Total 1010 ml Output Total 750 ml Balance 260 ml Capillary Refill : Less Than 3 Seconds General Appearance: Chronically ill, Thin Respiratory: Chest Non Tender, Lungs Clear, Decreased Breath Sounds Cardiovascular: Regular Rate, Rhythm Gastrointestinal: normal bowel sounds, non tender, soft Extremity: No Pedal Edema Neurologic/Psychiatric: Other (AROUSES TO VOICE, ANSWERED IN ONE WORD ANSWERS, BUT DID SO APPROPRIATELY) Results Lab Laboratory Tests 11/18/16 17:30: Urine Color YELLOW, Urine Clarity CLEAR, Urine pH 6, Urine Specific [place] 1.025H, Urine Protein NEGATIVE, Urine Glucose (UA) NEGATIVE, Urine Ketones 1+H, Urine Nitrite NEGATIVE, Urine Bilirubin NEGATIVE, Urine Urobilinogen NORMAL, Urine Leukocyte Esterase 1+H, Urine RBC (Auto) NEGATIVE, Urine RBC RARE, Urine WBC 0-2, Urine Squamous Epithelial Cells 25-50H, Urine Crystals NONE, Urine Bacteria NEGATIVE, Urine Casts NONE, Urine Mucus SMALLH, Urine Culture Indicated NO Assessment/Plan Assessment/Plan Assess & Plan/Chief Complaint METASTATIC ADENOCARCINOMA WITH ADVANCEMENT OF METASTATIC DISEASE IN BRAIN BRAIN METASTATIC DISEASE CAUSING STROKE-LIKE SYMPTOMS HYPERTENSION ANXIETY UNDERWEIGHT COPD METASTATIC ADENOCARCINOMA WITH ADVANCEMENT OF METASTATIC DISEASE IN BRAIN - BRAIN METASTATIC DISEASE CAUSING STROKE-LIKE SYMPTOMS - DEFER TREATMENT TO DR. DIMAS - THE FAMILY IS INTERESTED IN HOSPICE, FAMILY HAS TWO NURSES (A GRANDDAUGHTER AND NIECE) WHO WILL BE HELPING TO CARE FOR THE PATIENT IN HER SON' S HOME. HOSPICE TO BE CONSULTED - DR. DIMAS TO DECIDE TOMORROW WHO TO CALL FOR PATIENT TO BE STARTED ON HOSPICE. SHE WILL NEED TO GO HOME VIA AMBULANCE SHE CANNOT SAFELY BE TRANSPORTED IN A PRIVATE VEHICLE OR WHEELCHAIR VAN. HYPERTENSION - CONTINUE WITH LOW DOSE OF LISINOPRIL AT THIS TIME. ANXIETY - -RESUMED HOME MEDICATIONS. 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
--- NOTE | 2016-11-19 13:55 | Progress Note-Standard ---
Standard Progress Note Progress Notes/Assess & Plan Progress/Assessment & Plan 76-year-old female with the history of metastatic non-small cell lung cancer to the brain diagnosed in 2014 and underwent whole brain radiation therapy followed by palliative chemotherapy. Patient was brought to the hospital with mental status changes and noted to have multiple brain lesions with edema. She was started on dexamethasone with some improvement initially. She is less responsive today and wakes up for short durations only. Unable to communicate with family as speech is garbled. No other treatment options other than best supportive care. Patient would prefer to go home with hospice care and I will contact high school social science teacher to try to arrange this but the family wanted time until Sunday to make some arrangements at home. Family indicated today that they would prefer [facility] if she is able to go home. Today I informed them that if her condition worsens significantly, she may not tolerate the transport home. I will continue the dexamethasone 4 mg IV every 6 hours. Continue morphine 2 mg IV as needed for any discomfort and Valium 5 mg IV for any seizures as needed. She will continue as a DO NOT RESUSCITATE and we will proceed with best supportive care. ANIKET DIMAS Nov 19, 2016 13:55
[2016-11-19 16:00] VITALS: BP 156/73
[2016-11-19] MEDS: UMECLIDINIUM BROMIDE (INCRUSE ELLIPTA) 7'S IH SCH (18:30)
[2016-11-19] MEDS: eZETimibe 10 MG (ZETIA) TABLET PO SCH (21:00)
[2016-11-19] MEDS: SIMvastatin 20 MG (ZOCOR) TAB PO SCH (21:00)
[2016-11-20] MEDS: DEXAMETHASONE 4 MG/ML SDV (DECADRON) IV SCH ×2 (05:53→11:47)
--- NOTE | 2016-11-20 07:43 | Progress Note (SOAP) ---
Subjective Subjective/Events-last exam patient hospice. Patient to go home to son's house with family today. Patient responsive this morning. Patient communicates and aware what's going on. Metastatic brain lesions. Strokelike syndrome. Lung cancer. Spoke to sister and granddaughter Objective Exam Vital Signs Date Time Temp Pulse Resp B/P (MAP) Pulse Ox O2 Delivery O2 Flow Rate FiO2 11/19/16 20:00 95 Room Air 11/19/16 16:00 98.8 91 20 156/73 95 Room Air 11/19/16 08:00 98.2 81 20 150/77 95 Room Air 11/19/16 08:00 Nasal Cannula 2.00 I & O 11/20/16 07:00 Intake Total 0 ml Output Total 1150 ml Balance -1150 ml Capillary Refill : Less Than 3 SecondsLess Than 3 Seconds General Appearance: No Apparent Distress, Thin HEENT: Normal ENT Inspection Neck: Normal Inspection Respiratory: Chest Non Tender, No Accessory Muscle Use, No Respiratory Distress , Decreased Breath Sounds Cardiovascular: Regular Rate, Rhythm, No Murmur Assessment/Plan Assessment/Plan Assess & Plan/Chief Complaint patient hospice. Patient to go home to son's house today. Patient alert. 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
[2016-11-20] MEDS: PROMETHAZINE/ CODEINE SYRUP 5 ML UDC PO SCH (07:52)
[2016-11-20] MEDS: PANTOPRAZOLE 40 MG/10 ML (PROTONIX) VIAL IV SCH (07:52)
[2016-11-20] MEDS: morphine INJ 4 MG/ML 1 ML (VIAL/SYRINGE) IVP PRN ×3 (07:52→11:47)
[2016-11-20] MEDS: lisINopril 5 MG (PRINIVIL) TABLET PO SCH (07:52)
[2016-11-20 08:00] VITALS: BP 133/73
[2016-11-20] MEDS ORDERED: RT-ADVAIR HFA 115/21 MCG PER PUFF IH PRN (08:00)
[2016-11-20] MEDS ORDERED: HYOS0.1218 SL (11:10)
[2016-11-20] MEDS ORDERED: MORP100S3 PO (11:10)
[2016-11-20] MEDS ORDERED: LORA2ORA PO (11:10)
--- NOTE | 2016-11-20 11:11 | Discharge Inst-Simple/Standard ---
Discharge Inst-Standard Discharge Medications New, Converted or Re-Newed RX: RX Given to Pt/Family Patient Instructions/Follow Up Plan of Care/Instructions/FU: Hospice care at home. Activity as Tolerated: Yes Discharge Diet: No Restrictions ANIKET DIMAS Nov 20, 2016 11:11
[2016-11-20] MEDS ORDERED: UMECLIDINIUM BROMIDE (INCRUSE ELLIPTA) 7'S IH PRN (14:00)
--- NOTE | 2016-11-21 11:37 | DISCHARGE SUMMARY ---
DATE OF ADMISSION: DATE OF DISCHARGE: 11/20/2016 The patient was admitted to Room 420. FINAL DIAGNOSES: 1. Metastatic non-small cell lung cancer to the brain with cerebral edema. 2. Mental status changes and left facial drooping due to progressive brain metastasis and edema. 3. History of COPD. BRIEF HISTORY AND HOSPITAL COURSE: Mrs. Maxwell is a 76-year-old female with a history of metastatic non-small cell lung carcinoma to the brain diagnosed in April,. She completed palliative whole brain radiation therapy by May and was on palliative chemotherapy with carboplatin and paclitaxel regimen for 12 cycles, followed by single agent gemcitabine for 5 cycles as second line therapy. She was noted to have left facial droop and worsening mental status by the family and brought to the emergency room on 11/17/2016. CT scan showed multiple brain lesions with surrounding edema, which was not amenable to surgical resection or stereotactic radiation therapy. She was admitted to the hospital and started on dexamethasone every 6 hours. Discussions were held with the patient and the family and it was decided to proceed with best supportive care alone. The patient and her family expressed their wish to return home with hospice care so social worker palliative care consultations were obtained to facilitate this. On Sunday11/20/2016 arrangements were made with [facility], to provide care at home for the patient. They had to rule out the necessary equipment and it was decided to discharge the patient home with hospice. She will continue as DNR while on hospice. She will continue her previous home medications along with dexamethasone 4 mg p.o. every 6 hours and wean to 3 times in a few days and eventually to twice daily to reduce the cerebral edema. She will have her palliative medications with Roxanol 5 to 10 mg orally every 4 hours as needed for pain control and respiratory symptoms. She will also have Ativan as needed for anxiety and hyoscyamine for secretions. She is terminal and will proceed with best supportive care with the help of hospice. No follow-up appointments as scheduled at the office but I will coordinate the care with the help of hospice. She will be transported by ambulance as she is unable to sit in a wheelchair or in a private vehicle. 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
--- OUTSIDE RECORDS SUMMARY | 2016-12-10 08:13 | XMS REPORT | Continuity of Care Document ---
Author Author [facility] Organization [facility] Address Unknown Phone Unavailable Allergies Active Description Code Type Severity Reaction Onset Reported/Identified Relationship to Patient Clinical Status Yes benzonatate [id number] Drug Allergy Unknown N/A 06/27/2015 Yes pollen pollen Moderate N/A 09/26/2016 Yes cephalexin [id number] Drug Allergy Unknown N/A 09/26/2016 Medications Problems Date Dx Coded Attending Type Code Diagnosis Diagnosed By 07/19/1202 ANIKET DIMAS Ot C34.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 OF UPPER LOBE, RIGHT 07/19/1202 ANIKET DIMAS Ot C79.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 07/19/1202 ANIKET DIMAS Ot E03.9 HYPOTHYROIDISM, UNSPECIFIED 07/19/1202 ANIKET DIMAS Ot E11.9 TYPE 2 DIABETES MELLITUS WITHOUT COMPLIC 07/19/1202 ANIKET DIMAS Ot E78.5 HYPERLIPIDEMIA, UNSPECIFIED 07/19/1202 ANIKET DIMAS Ot F17.210 NICOTINE DEPENDENCE, CIGARETTES, UNCOMPL 07/19/1202 ANIKET DIMAS Ot I10 ESSENTIAL (PRIMARY) HYPERTENSION 07/19/1202 ANIKET DIMAS Ot J44.9 CHRONIC OBSTRUCTIVE PULMONARY DISEASE, U 07/19/1202 ANIKET DIMAS Ot Z51.11 ENCOUNTER FOR ANTINEOPLASTIC CHEMOTHERAP 07/19/1202 ANIKET DIMAS Ot Z79.899 OTHER MANAGER CONTENT (CURRENT) DRUG THERAPY 05/02/2011 Ot 491.21 OBSTR CHRONIC BRONCHITIS, W (ACUTE) EXAC 05/02/2011 Ot 786.05 SHORTNESS OF BREATH 08/19/2011 Ot 305.1 TOBACCO USE DISORDER 08/19/2011 Ot 466.0 ACUTE BRONCHITIS 08/19/2011 Ot 786.2 COUGH 12/16/2013 JAI CHAU MD Ot 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 12/16/2013 JAI CHAU MD Ot 496 CHR AIRWAY OBSTRUCT NEC 12/16/2013 KANDI METZGER, JAI Call Ot 786.05 SHORTNESS OF BREATH 09/23/2014 GELLENDER DO, KERON Mccurdy Ot 785.9 09/23/2014 GELLENDER DO, KERON Mccurdy Ot 789.39 04/30/2015 GELLENDER DO, KERON Mccurdy Ot 250.00 04/30/2015 GELLENDER DO, KERON Mccurdy Ot 305.1 04/30/2015 GELLENDER DO, KERON Mccurdy Ot 491.21 04/30/2015 GELLENDER DO, KERON Mccurdy Ot 518.84 04/30/2015 GELLENDER DO, KERON Mccurdy Ot 786.6 04/30/2015 GELLENDER DO, KERON Mccurdy Ot V46.2 04/30/2015 GELLENDER DO, KERON Mccurdy Ot V49.86 04/30/2015 GELLENDER DO, KERON Mccurdy Ot 250.00 04/30/2015 GELLENDER DO, KERON Mccurdy Ot 305.1 04/30/2015 GELLENDER DO, KERON Mccurdy Ot 491.21 04/30/2015 GELLENDER DO, KERON Mccurdy Ot 518.84 04/30/2015 GELLENDER DO, KERON Mccurdy Ot 786.6 04/30/2015 GELLENDER DO, KERON Mccurdy Ot V46.2 04/30/2015 GELLENDER DO, KERON Mccurdy Ot V49.86 04/30/2015 GELLENDER DO, KERON Mccurdy Ot 250.00 04/30/2015 GELLENDER DO, KERON Mccurdy Ot 305.1 04/30/2015 GELLENDER DO, KERON Mccurdy Ot 491.21 04/30/2015 GELLENDER DO, KERON Mccurdy Ot 518.84 04/30/2015 GELLENDER DO, KERON Mccurdy Ot 786.6 04/30/2015 GELLENDER DO, KERON Mccurdy Ot V46.2 04/30/2015 GELLENDER DO, KERON Mccurdy Ot V49.86 04/30/2015 GELLENDER DO, KERON Mccurdy Ot 250.00 04/30/2015 GELLENDER DO, KERON Mccurdy Ot 305.1 04/30/2015 GELLENDER DO, KERON Mccurdy Ot 491.21 04/30/2015 GELLENDER DO, KERON Mccurdy Ot 518.84 04/30/2015 GELLENDER DO, KERON Mccurdy Ot 786.6 04/30/2015 GELLENDER DO, KERON A Ot V46.2 04/30/2015 GELLENDER DO, KERON A Ot V49.86 04/30/2015 GELLENDER DO, KERON A Ot 250.00 04/30/2015 GELLENDER DO, KERON A Ot 305.1 04/30/2015 GELLENDER DO, KERON A Ot 491.21 04/30/2015 GELLENDER DO, KERON A Ot 518.84 04/30/2015 GELLENDER DO, KERON A Ot 786.6 04/30/2015 GELLENDER DO, KERON A Ot V46.2 04/30/2015 GELLENDER DO, KERON A Ot V49.86 04/30/2015 GELLENDER DO, KERON A Ot 250.00 04/30/2015 GELLENDER DO, KERON A Ot 305.1 04/30/2015 GELLENDER DO, KERON A Ot 491.21 04/30/2015 GELLENDER DO, KERON A Ot 518.84 04/30/2015 GELLENDER DO, KERON Mccurdy Ot 786.6 04/30/2015 GELLENDER DO, KERON A Ot V46.2 04/30/2015 GELLENDER DO, KERON A Ot V49.86 05/01/2015 GELLENDER DO, KERON A Ot 250.00 05/01/2015 GELLENDER DO, KERON A Ot 305.1 05/01/2015 GELLENDER DO, KERON A Ot 491.21 05/01/2015 GELLENDER DO, KERON A Ot 518.84 05/01/2015 GELLENDER DO, KERON A Ot 786.6 05/01/2015 GELLENDER DO, KERON A Ot V46.2 05/01/2015 GELLENDER DO, KERON A Ot V49.86 05/02/2015 GELLENDER DO, KERON A Ot 250.00 05/02/2015 GELLENDER DO, KERON A Ot 305.1 05/02/2015 GELLENDER DO, KERON A Ot 491.21 05/02/2015 GELLENDER DO, KERON A Ot 518.84 05/02/2015 GELLENDER DO, KERON A Ot 786.6 05/02/2015 GELLENDER DO, KERON A Ot V46.2 05/02/2015 GELLENDER DO, KERON A Ot V49.86 05/02/2015 GELLENDER DO, KERON A Ot 244.9 HYPOTHYROIDISM NOS 05/02/2015 KERON RONDON DO Ot 250.00 DIAB MIGUEL ANGEL WO COMPL, TYPE II OR UNSPEC TY 05/02/2015 NELA DESAI KERON Mccurdy Ot 305.1 TOBACCO USE DISORDER 05/02/2015 NELA DESAI KERON Mccurdy Ot 491.21 OBSTR CHRONIC BRONCHITIS, W (ACUTE) EXAC 05/02/2015 NELA DESAI KERON Mccurdy Ot 518.84 ACUTE AND CHRONIC RESPIRATORY FAILURE 05/02/2015 NELA DO KERON Mccurdy Ot 786.6 CHEST SWELLING/MASS/LUMP 05/02/2015 NELA DESAI KERON Mccurdy Ot V46.2 SUPPLEMENTAL OXYGEN 05/02/2015 NELA DESAI KERON Mccurdy Ot V49.86 DO NOT RESUSCITATE STATUS 05/13/2015 TEDDY FLOYD DO Ot 250.00 DIAB MIGUEL ANGEL WO COMPL, TYPE II OR UNSPEC TY 05/13/2015 TEDDY FLOYD DO Ot 496 CHR AIRWAY OBSTRUCT NEC 05/13/2015 TDEDY FLOYD DO Ot 786.09 RESPIRATORY ABNORM NEC 05/13/2015 TEDDY FLOYD DO Ot 786.6 CHEST SWELLING/MASS/LUMP 06/16/2015 CHELLE METZGER, SALLY Mondragon Ot C34.11 06/25/2015 KAY MAGAÑA DO Ot C34.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 06/25/2015 KAY MAGAÑA DO Ot C79.9 SECONDARY MALIGNANT NEOPLASM OF UNSPECIF 06/25/2015 KAY MAGAÑA DO Ot Z79.899 OTHER CORRECTION (CURRENT) DRUG THERAPY 06/28/2015 MILAGRO BLANTON DO Ot C34.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 NEOPLASM OF UNSP PART OF UNSP 06/28/2015 MILAGRO BLANTON DO Ot C79.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 06/28/2015 MILAGRO BLANTON DO Ot E03.9 HYPOTHYROIDISM, UNSPECIFIED 06/28/2015 MILAGRO BLANTON DO Ot E11.9 TYPE 2 DIABETES MELLITUS WITHOUT COMPLIC 06/28/2015 MILAGRO BLANTON DO Ot F17.210 NICOTINE DEPENDENCE, CIGARETTES, UNCOMPL 06/28/2015 MILAGRO BLANTON DO Ot I10 ESSENTIAL (PRIMARY) HYPERTENSION 06/28/2015 MILAGRO BLANTON DO Ot J44.9 CHRONIC OBSTRUCTIVE PULMONARY DISEASE , U 06/28/2015 MILAGRO BLANTON DO Ot S01.01XA LACERATION WITHOUT FOREIGN BODY OF SCALP 06/28/2015 MILAGRO BLANTON DO Ot S06.6X0A TRAUM SUBRAC HEM W/O LOSS OF CONSCIOUSNE 06/28/2015 MILAGRO BLANTON DO Ot W01.10XA FALL SAME LEV FROM SLIP/TRIP W STRIKE AG 06/28/2015 MILAGRO BLANTON DO Ot Y92.[address] IN SINGLE-FAMILY ( PRIVATE) HO 06/28/2015 MILAGRO BLANTON DO Ot Z99.81 DEPENDENCE ON SUPPLEMENTAL OXYGEN 07/06/2015 CHELLE METZGER, SALLY Mondragon Ot C34.90 07/27/2015 CHELLE METZGER, SALLY Mondragon Ot C34.90 07/28/2015 TEDDY FLOYD DO Ot F17.200 07/28/2015 TEDDY FLOYD DO Ot R22.2 07/28/2015 RAMOS SWEENEYP Ot C34.11 08/11/2015 CHELLE METZGER, SALLY Mondragon Ot C34.90 08/24/2015 CHELLE METZGER, SALLY Mondragon Ot C34.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 OF UPPER LOBE, RIGHT 08/24/2015 CHELLE METZGER, SALLY Mondragon Ot C34.90 08/24/2015 CHELLE METZGER, SALLY Mondragon Ot Z51.0 ENCOUNTER FOR ANTINEOPLASTIC RADIATION T 08/24/2015 CHELLE METZGER, SALLY Mondragon Ot Z51.11 ENCOUNTER FOR ANTINEOPLASTIC CHEMOTHERAP 08/25/2015 ANIKET DIMAS N Ot C34.90 08/27/2015 WINGANIKET SAMSON N Ot C34.90 09/02/2015 WINGANIKET N Ot C34.90 09/08/2015 IWNGANIKET N Ot C34.11 09/08/2015 WINGANIKET SAMSON N Ot C79.31 09/08/2015 ANIKET DIMAS N Ot E03.9 09/08/2015 WINGANIKET N Ot E11.9 09/08/2015 WINGANIKET SAMSON N Ot E78.5 09/08/2015 WINGANIKET SAMSON Ot F17.210 09/08/2015 ANIKET DIMAS Ot I10 09/08/2015 ANIKET DIMAS Ot J44.9 09/08/2015 WING, ANIKET N Ot Z79.899 09/20/2015 Ot 305.1 09/20/2015 Ot 490 09/20/2015 Ot 518.89 09/20/2015 Ot 786.07 09/20/2015 Ot 786.2 09/20/2015 Ot 722.4 09/20/2015 GELJ CARLOS DOKERON A Ot 785.9 09/20/2015 GELLENDONNA DO, KERON A Ot 789.39 09/20/2015 TEDDY FLOYD DO Ot 305.1 09/20/2015 TEDDY FLOYD DO Ot 496 09/20/2015 EVERETT DESAI TEDDY Rodriguez Ot 786.6 09/20/2015 EVERETT TEDDY Rodriguez Ot V72.84 09/20/2015 EVERETT DESAI TEDDY Rodriguez Ot V74.8 09/20/2015 EVERETT DESAI TEDDY Rodriguez Ot F17.200 09/20/2015 EVERETT DESAI TEDDY Rodriguez Ot R22.2 09/20/2015 SALLY CORBETT MD Ot C34.11 09/20/2015 RAMOS SWEENEY Ot C34.11 09/20/2015 SHAWNEE KAY DESAI Ot C34.90 09/20/2015 SHAWNEE KAY DESAI Ot Z01.818 09/20/2015 WINGANIKET SAMSON N Ot C34.11 09/20/2015 WING, ANIKET N Ot C79.31 09/20/2015 WING, ANIKET N Ot E03.9 09/20/2015 WING, ANIKET N Ot E11.9 09/20/2015 WING, BOBAN N Ot E78.5 09/20/2015 WING, BOBAN N Ot F17.210 09/20/2015 WING, BOBOSIRIS N Ot I10 09/20/2015 WING, BOBOSIRIS N Ot J44.9 09/20/2015 WING, BOBAN N Ot Z79.899 09/20/2015 RAMOS SWEENEYP Ot C34.11 09/20/2015 EVERETT DESAI TEDDY Jennifer Ot F17.200 09/20/2015 EVERETT DESAI TEDDY Jennifer Ot R22.2 10/07/2015 MARIA EUGENIA KIM MD Ot C34.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 OF UPPER LOBE, RIGHT 10/07/2015 MARIA EUGENIA KIM MD Ot C79.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 10/07/2015 MARIA EUGENIA KIM MD Ot E03.9 HYPOTHYROIDISM, UNSPECIFIED 10/07/2015 MARIA EUGENIA KIM MD Ot E11.9 TYPE 2 DIABETES MELLITUS WITHOUT COMPLIC 10/07/2015 MARIA EUGENIA KIM MD Ot F17.210 NICOTINE DEPENDENCE, CIGARETTES, UNCOMPL 10/07/2015 MARIA EUGENIA KIM MD Ot I10 ESSENTIAL (PRIMARY) HYPERTENSION 10/07/2015 MARIA EUGENIA KIM MD Ot J44.1 CHRONIC OBSTRUCTIVE PULMONARY DISEASE W 10/10/2015 GELLENDER DO, KERON Mccurdy Ot C34.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 10/10/2015 TATIANALENDER DO, KERON Mccurdy Ot C79.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 10/10/2015 TATIANABYRONDER DO, KERON Mccurdy Ot E03.9 HYPOTHYROIDISM, UNSPECIFIED 10/10/2015 TATIANALENDER DO, KERON Mccurdy Ot E11.9 TYPE 2 DIABETES MELLITUS WITHOUT COMPLIC 10/10/2015 TAITANALENDER DO, KERON Mccurdy Ot F17.210 NICOTINE DEPENDENCE, CIGARETTES, UNCOMPL 10/10/2015 TATIANALENDER DO, KERON Mccurdy Ot F41.9 ANXIETY DISORDER, UNSPECIFIED 10/10/2015 GELLENDER DOKERON Ot I10 ESSENTIAL (PRIMARY) HYPERTENSION 10/10/2015 TATIANABYRONDER DOKERON Ot J44.9 CHRONIC OBSTRUCTIVE PULMONARY DISEASE , U 10/20/2015 WINGANIKET SAMSON N Ot C34.11 10/20/2015 WINGANIKET N Ot C79.31 10/20/2015 WINGANIKET N Ot E03.9 10/20/2015 WINGANIKET N Ot E11.9 10/20/2015 WING, BOBAN N Ot E78.5 10/20/2015 WING, BOBAN N Ot F17.210 10/20/2015 WING, BOBOSIRIS N Ot I10 10/20/2015 WINGDONAAN N Ot J44.9 10/20/2015 WINGDONAAN N Ot Z79.899 10/26/2015 Ot 305.1 10/26/2015 Ot 490 10/26/2015 Ot 518.89 10/26/2015 Ot 786.07 10/26/2015 Ot 786.2 10/26/2015 Ot 722.4 10/26/2015 GELKERON WHITMAN DO Ot 785.9 10/26/2015 NELA DESAI, KERON Mccurdy Ot 789.39 10/26/2015 TEDDY FLOYD DO Ot 305.1 10/26/2015 EVERETT DOTEDDY Ot 496 10/26/2015 EVERETT DO, TEDDY Rodriguez Ot 786.6 10/26/2015 EVERETT DO, TEDDY Rodriguez Ot V72.84 10/26/2015 EVERETT DO, TEDDY Rodriguez Ot V74.8 10/26/2015 EVERETT DO, TEDDY Rodriguez Ot F17.200 10/26/2015 EVERETT DO, TEDDY Rodriguez Ot R22.2 10/26/2015 SALLY CORBETT MD Ot C34.11 10/26/2015 RAMOS SWEENEY Ot C34.11 10/26/2015 SHAWNEE KAY DESAI Ot C34.90 10/26/2015 SHAWNEE KAY DESAI Ot Z01.818 10/26/2015 WING, BOBAN N Ot C34.11 10/26/2015 WING, BOBAN N Ot C79.31 10/26/2015 WING, BOBAN N Ot E03.9 10/26/2015 WING, BOBAN N Ot E11.9 10/26/2015 WING, BOBAN N Ot E78.5 10/26/2015 WING, BOBAN N Ot F17.210 10/26/2015 WING, BOBAN N Ot I10 10/26/2015 WING, BOBAN N Ot J44.9 10/26/2015 WING, BOBAN N Ot Z79.899 11/16/2015 WING, BOBAN N Ot C34.11 11/16/2015 WING, BOBAN N Ot C79.31 11/29/2015 WING, BOBAN N Ot C34.11 11/29/2015 WING, BOBAN N Ot C79.31 11/29/2015 WING, BOBAN N Ot E03.9 11/29/2015 WING, BOBAN N Ot E11.9 11/29/2015 WING, BOBAN N Ot E78.5 11/29/2015 WING, BOBAN N Ot F17.210 11/29/2015 WINGANIKET SAMSON N Ot I10 11/29/2015 WINGANIKET SAMSON N Ot J44.9 11/29/2015 WINGANIKET SAMSON N Ot Z79.899 11/30/2015 ANIKET DIMAS N Ot C34.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 OF UPPER LOBE, RIGHT 11/30/2015 WING ANIKET N Ot C79.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 11/30/2015 ANIKET DIMAS N Ot E03.9 HYPOTHYROIDISM, UNSPECIFIED 11/30/2015 WING, DONAOSIRIS N Ot E11.9 TYPE 2 DIABETES MELLITUS WITHOUT COMPLIC 11/30/2015 WING ANIKET N Ot E78.5 HYPERLIPIDEMIA, UNSPECIFIED 11/30/2015 WING, ANIKET N Ot F17.210 NICOTINE DEPENDENCE, CIGARETTES, UNCOMPL 11/30/2015 WING DONAOSIRIS N Ot I10 ESSENTIAL (PRIMARY) HYPERTENSION 11/30/2015 WINGANIKET N Ot J44.9 CHRONIC OBSTRUCTIVE PULMONARY DISEASE, U 11/30/2015 WING ANIKET N Ot Z51.11 ENCOUNTER FOR ANTINEOPLASTIC CHEMOTHERAP 11/30/2015 ANIKET DIMAS N Ot Z79.899 OTHER CORRECTION (CURRENT) DRUG THERAPY 12/01/2015 WINGDONAOSIRIS N Ot C34.11 12/01/2015 WING ANIKET N Ot C79.31 12/01/2015 WINGANIKET SAMSON N Ot E03.9 12/01/2015 WING DONAOSIRIS N Ot E11.9 12/01/2015 WINGANIKET SAMSON N Ot E78.5 12/01/2015 WINGANIKET SAMSON N Ot F17.210 12/01/2015 WINGANIKET N Ot I10 12/01/2015 WINGANIKET N Ot J44.9 12/01/2015 WING DONAAN N Ot Z51.11 12/01/2015 WING DONAAN N Ot Z79.899 12/06/2015 WINGDONA SAMSONOSIRIS N Ot C34.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 OF UPPER LOBE, RIGHT 12/06/2015 WING ANIKET N Ot C79.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 12/06/2015 WING ANIKET N Ot E03.9 HYPOTHYROIDISM, UNSPECIFIED 12/06/2015 WING, BOBAN N Ot E11.9 TYPE 2 DIABETES MELLITUS WITHOUT COMPLIC 12/06/2015 WING, DONAAN N Ot E78.5 HYPERLIPIDEMIA, UNSPECIFIED 12/06/2015 WING, BOBAN N Ot F17.210 NICOTINE DEPENDENCE, CIGARETTES, UNCOMPL 12/06/2015 WING BOBAN N Ot I10 ESSENTIAL (PRIMARY) HYPERTENSION 12/06/2015 WINGDONAAN N Ot J44.9 CHRONIC OBSTRUCTIVE PULMONARY DISEASE, U 12/06/2015 WING, BOBAN N Ot Z79.899 OTHER CORRECTION (CURRENT) DRUG THERAPY 12/07/2015 WING BOBAN N Ot C34.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 OF UPPER LOBE, RIGHT 12/07/2015 WING, BOBAN N Ot C79.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 12/07/2015 WING BOBAN N Ot E03.9 HYPOTHYROIDISM, UNSPECIFIED 12/07/2015 WING, BOBAN N Ot E11.9 TYPE 2 DIABETES MELLITUS WITHOUT COMPLIC 12/07/2015 WING BOBAN N Ot E78.5 HYPERLIPIDEMIA, UNSPECIFIED 12/07/2015 WING, BOBAN N Ot F17.210 NICOTINE DEPENDENCE, CIGARETTES, UNCOMPL 12/07/2015 WING, BOBAN N Ot I10 ESSENTIAL (PRIMARY) HYPERTENSION 12/07/2015 WING BOBOSIRIS N Ot J44.9 CHRONIC OBSTRUCTIVE PULMONARY DISEASE, U 12/07/2015 WING, BOBAN N Ot Z79.899 OTHER CORRECTION (CURRENT) DRUG THERAPY 01/24/2016 WINGANIKET N Ot C34.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 OF UPPER LOBE, RIGHT 01/24/2016 WING BOBAN N Ot C79.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 01/24/2016 WING BOBAN N Ot E03.9 HYPOTHYROIDISM, UNSPECIFIED 01/24/2016 WING, BOBAN N Ot E11.9 TYPE 2 DIABETES MELLITUS WITHOUT COMPLIC 01/24/2016 WING, BOBAN N Ot E78.5 HYPERLIPIDEMIA, UNSPECIFIED 01/24/2016 WING, BOBAN N Ot F17.210 NICOTINE DEPENDENCE, CIGARETTES, UNCOMPL 01/24/2016 WING BOBAN N Ot I10 ESSENTIAL (PRIMARY) HYPERTENSION 01/24/2016 WING, BOBAN N Ot J44.9 CHRONIC OBSTRUCTIVE PULMONARY DISEASE, U 01/24/2016 WING, BOBAN N Ot Z51.11 ENCOUNTER FOR ANTINEOPLASTIC CHEMOTHERAP 01/24/2016 ANIKET DIMAS Ot Z79.899 OTHER MANAGER CONTENT (CURRENT) DRUG THERAPY 01/25/2016 RAMOS SWEENEY HRIS DEVELOPER Ot C34.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 OF UPPER LOBE, RIGHT 01/25/2016 RAMOS SWEENEY HRIS DEVELOPER Ot C79.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 01/25/2016 RAMOS SWEENEY S HRIS DEVELOPER Ot E03.9 HYPOTHYROIDISM, UNSPECIFIED 01/25/2016 RAMOS SWEENEY S HRIS DEVELOPER Ot E11.9 TYPE 2 DIABETES MELLITUS WITHOUT COMPLIC 01/25/2016 RAMOS SWEENEY S HRIS DEVELOPER Ot E78.5 HYPERLIPIDEMIA, UNSPECIFIED 01/25/2016 RAMOS SWEENEY S HRIS DEVELOPER Ot F17.210 NICOTINE DEPENDENCE, CIGARETTES, UNCOMPL 01/25/2016 RAMOS SWEENEY S HRIS DEVELOPER Ot I10 ESSENTIAL (PRIMARY) HYPERTENSION 01/25/2016 RAMOS SWEENEY S HRIS DEVELOPER Ot J44.9 CHRONIC OBSTRUCTIVE PULMONARY DISEASE, U 01/25/2016 RAMOS SWEENEY S HRIS DEVELOPER Ot Z79.899 OTHER CORRECTION (CURRENT) DRUG THERAPY 02/15/2016 RAMOS SWEENEY S HRIS DEVELOPER Ot C34.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 OF UPPER LOBE, RIGHT 02/15/2016 RAMOS SWEENEY HRIS DEVELOPER Ot C79.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 02/15/2016 RAMOS SWEENEY S HRIS DEVELOPER Ot E03.9 HYPOTHYROIDISM, UNSPECIFIED 02/15/2016 RAMOS SWEENEY S HRIS DEVELOPER Ot E11.9 TYPE 2 DIABETES MELLITUS WITHOUT COMPLIC 02/15/2016 RAMOS SWEENEY S HRIS DEVELOPER Ot E78.5 HYPERLIPIDEMIA, UNSPECIFIED 02/15/2016 RAMOS SWEENEY S HRIS DEVELOPER Ot F17.210 NICOTINE DEPENDENCE, CIGARETTES, UNCOMPL 02/15/2016 RAMOS SWEENEY S HRIS DEVELOPER Ot I10 ESSENTIAL (PRIMARY) HYPERTENSION 02/15/2016 RAMOS SWEENEY S HRIS DEVELOPER Ot J44.9 CHRONIC OBSTRUCTIVE PULMONARY DISEASE, U 02/15/2016 RAMOS SWEENEY S HRIS DEVELOPER Ot Z79.899 OTHER CORRECTION (CURRENT) DRUG THERAPY 02/16/2016 RAMOS SWEENEY S HRIS DEVELOPER Ot C34.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 OF UPPER LOBE, RIGHT 02/17/2016 RAMOS SWEENEY HRIS DEVELOPER Ot C34.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 OF UPPER LOBE, RIGHT 02/22/2016 ANIKET DIMAS N Ot C34.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 OF UPPER LOBE, RIGHT 02/22/2016 ANIKET DIMAS N Ot C79.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 02/22/2016 ANIKET DIMAS N Ot E03.9 HYPOTHYROIDISM, UNSPECIFIED 02/22/2016 ANIKET DIMAS N Ot E11.9 TYPE 2 DIABETES MELLITUS WITHOUT COMPLIC 02/22/2016 ANIKET DIMAS N Ot E78.5 HYPERLIPIDEMIA, UNSPECIFIED 02/22/2016 ANIKET DIMAS N Ot F17.210 NICOTINE DEPENDENCE, CIGARETTES, UNCOMPL 02/22/2016 ANIKET DIMAS N Ot I10 ESSENTIAL (PRIMARY) HYPERTENSION 02/22/2016 ANIKET DIMAS N Ot J44.9 CHRONIC OBSTRUCTIVE PULMONARY DISEASE, U 02/22/2016 ANIKET DIMAS N Ot Z51.11 ENCOUNTER FOR ANTINEOPLASTIC CHEMOTHERAP 02/22/2016 ANIKET DIMAS N Ot Z79.899 OTHER CORRECTION (CURRENT) DRUG THERAPY 02/24/2016 RAMOS SWEENEY HRIS DEVELOPER Ot C34.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 OF UPPER LOBE, RIGHT 02/24/2016 RAMOS SWEENEY HRIS DEVELOPER Ot C79.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 02/24/2016 RAMOS SWEENEY HRIS DEVELOPER Ot E03.9 HYPOTHYROIDISM, UNSPECIFIED 02/24/2016 RAMOS SWEENEY HRIS DEVELOPER Ot E11.9 TYPE 2 DIABETES MELLITUS WITHOUT COMPLIC 02/24/2016 RAMOS SEWENEYP Ot E78.5 HYPERLIPIDEMIA, UNSPECIFIED 02/24/2016 RAMOS SWEENEY HRIS DEVELOPER Ot F17.210 NICOTINE DEPENDENCE, CIGARETTES, UNCOMPL 02/24/2016 RAMOS SWEENEY HRIS DEVELOPER Ot I10 ESSENTIAL (PRIMARY) HYPERTENSION 02/24/2016 RAMOS SWEENEY HRIS DEVELOPER Ot J44.9 CHRONIC OBSTRUCTIVE PULMONARY DISEASE, U 02/24/2016 RAMOS SWEENEY HRIS DEVELOPER Ot Z79.899 OTHER MANAGER CONTENT (CURRENT) DRUG THERAPY 03/05/2016 ANIKET DIMAS N Ot C34.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 OF UPPER LOBE, RIGHT 03/05/2016 ANIKET DIMAS N Ot C79.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 03/05/2016 WING, BOBAN N Ot E03.9 HYPOTHYROIDISM, UNSPECIFIED 03/05/2016 WING, DONAAN N Ot E11.9 TYPE 2 DIABETES MELLITUS WITHOUT COMPLIC 03/05/2016 WING BOBAN N Ot E78.5 HYPERLIPIDEMIA, UNSPECIFIED 03/05/2016 WING, BOBAN N Ot F17.210 NICOTINE DEPENDENCE, CIGARETTES, UNCOMPL 03/05/2016 WING BOBAN N Ot I10 ESSENTIAL (PRIMARY) HYPERTENSION 03/05/2016 WING BOBAN N Ot J44.9 CHRONIC OBSTRUCTIVE PULMONARY DISEASE, U 03/05/2016 WING, BOBAN N Ot Z51.11 ENCOUNTER FOR ANTINEOPLASTIC CHEMOTHERAP 03/05/2016 WING, BOBAN N Ot Z79.899 OTHER CORRECTION (CURRENT) DRUG THERAPY 03/08/2016 WING BOBAN N Ot C34.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 OF UPPER LOBE, RIGHT 03/08/2016 WING BOBAN N Ot C79.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 03/08/2016 WINGDONAAN N Ot E03.9 HYPOTHYROIDISM, UNSPECIFIED 03/08/2016 WING, BOBAN N Ot E11.9 TYPE 2 DIABETES MELLITUS WITHOUT COMPLIC 03/08/2016 WING BOBAN N Ot E78.5 HYPERLIPIDEMIA, UNSPECIFIED 03/08/2016 WING, BOBAN N Ot F17.210 NICOTINE DEPENDENCE, CIGARETTES, UNCOMPL 03/08/2016 WING BOBOSIRIS N Ot I10 ESSENTIAL (PRIMARY) HYPERTENSION 03/08/2016 WINGANIKET N Ot J44.9 CHRONIC OBSTRUCTIVE PULMONARY DISEASE, U 03/08/2016 WINGANIKET N Ot Z51.11 ENCOUNTER FOR ANTINEOPLASTIC CHEMOTHERAP 03/08/2016 WINGDONAAN N Ot Z79.899 OTHER CORRECTION (CURRENT) DRUG THERAPY 03/09/2016 RAMOS SWEENEY Ot C34.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 OF UPPER LOBE, RIGHT 03/11/2016 WING, BOBOSIRIS N Ot C34.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 OF UPPER LOBE, RIGHT 03/11/2016 WING, BOBAN N Ot C79.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 03/11/2016 WING BOBAN N Ot E03.9 HYPOTHYROIDISM, UNSPECIFIED 03/11/2016 WING, BOBAN N Ot E11.9 TYPE 2 DIABETES MELLITUS WITHOUT COMPLIC 03/11/2016 ANIKET DIMAS Ot E78.5 HYPERLIPIDEMIA, UNSPECIFIED 03/11/2016 ANIKET DIMAS Ot F17.210 NICOTINE DEPENDENCE, CIGARETTES, UNCOMPL 03/11/2016 ANIKET DIMAS Ot I10 ESSENTIAL (PRIMARY) HYPERTENSION 03/11/2016 ANIKET DIMAS Ot J44.9 CHRONIC OBSTRUCTIVE PULMONARY DISEASE, U 03/11/2016 ANIKET DIMAS Ot Z51.11 ENCOUNTER FOR ANTINEOPLASTIC CHEMOTHERAP 03/11/2016 ANIKET DIMAS Ot Z79.899 OTHER CORRECTION (CURRENT) DRUG THERAPY 03/21/2016 RAMOS SWEENEY S HRIS DEVELOPER Ot C34.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 OF UPPER LOBE, RIGHT 03/21/2016 RAMOS SWEENEY S HRIS DEVELOPER Ot C79.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 03/21/2016 RAMOS SWEENEY S HRIS DEVELOPER Ot E03.9 HYPOTHYROIDISM, UNSPECIFIED 03/21/2016 RAMOS SWEENEY S HRIS DEVELOPER Ot E11.9 TYPE 2 DIABETES MELLITUS WITHOUT COMPLIC 03/21/2016 RAMOS SWEENEY S HRIS DEVELOPER Ot E78.5 HYPERLIPIDEMIA, UNSPECIFIED 03/21/2016 RAMOS SWEENEY S HRIS DEVELOPER Ot F17.210 NICOTINE DEPENDENCE, CIGARETTES, UNCOMPL 03/21/2016 RAMOS SWEENEY S HRIS DEVELOPER Ot I10 ESSENTIAL (PRIMARY) HYPERTENSION 03/21/2016 RAMOS SWEENEY HRIS DEVELOPER Ot J44.9 CHRONIC OBSTRUCTIVE PULMONARY DISEASE, U 03/21/2016 RAMOS SWEENEY S HRIS DEVELOPER Ot Z79.899 OTHER CORRECTION (CURRENT) DRUG THERAPY 03/30/2016 RAMOS SWEENEY S HRIS DEVELOPER Ot C34.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 OF UPPER LOBE, RIGHT 03/30/2016 RAMOS SWEENEY S HRIS DEVELOPER Ot C79.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 03/30/2016 RAMOS SWEENEY S HRIS DEVELOPER Ot E03.9 HYPOTHYROIDISM, UNSPECIFIED 03/30/2016 RAMOS SWEENEY S HRIS DEVELOPER Ot E11.9 TYPE 2 DIABETES MELLITUS WITHOUT COMPLIC 03/30/2016 RAMOS SWEENEY S HRIS DEVELOPER Ot E78.5 HYPERLIPIDEMIA, UNSPECIFIED 03/30/2016 RAMOS SWEENEY S HRIS DEVELOPER Ot F17.210 NICOTINE DEPENDENCE, CIGARETTES, UNCOMPL 03/30/2016 RAMOS SWEENEY S HRIS DEVELOPER Ot I10 ESSENTIAL (PRIMARY) HYPERTENSION 03/30/2016 RAMOS SWEENEY HRIS DEVELOPER Ot J44.9 CHRONIC OBSTRUCTIVE PULMONARY DISEASE, U 03/30/2016 RAMOS SWEENEY HRIS DEVELOPER Ot Z79.899 OTHER MANAGER CONTENT (CURRENT) DRUG THERAPY 03/31/2016 WING, BOBAN N Ot C34.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 OF UPPER LOBE, RIGHT 03/31/2016 WING BOBAN N Ot C79.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 03/31/2016 WING BOBAN N Ot E03.9 HYPOTHYROIDISM, UNSPECIFIED 03/31/2016 WING, BOBAN N Ot E11.9 TYPE 2 DIABETES MELLITUS WITHOUT COMPLIC 03/31/2016 WING, BOBAN N Ot E78.5 HYPERLIPIDEMIA, UNSPECIFIED 03/31/2016 WING, BOBAN N Ot F17.210 NICOTINE DEPENDENCE, CIGARETTES, UNCOMPL 03/31/2016 WING, BOBAN N Ot I10 ESSENTIAL (PRIMARY) HYPERTENSION 03/31/2016 WING, BOBAN N Ot J44.9 CHRONIC OBSTRUCTIVE PULMONARY DISEASE, U 03/31/2016 WING, BOBAN N Ot Z51.11 ENCOUNTER FOR ANTINEOPLASTIC CHEMOTHERAP 03/31/2016 WING, BOBAN N Ot Z79.899 OTHER MANAGER CONTENT (CURRENT) DRUG THERAPY 04/02/2016 WING, BOBAN N Ot C34.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 OF UPPER LOBE, RIGHT 04/02/2016 WING BOBAN N Ot C79.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 04/02/2016 WING BOBAN N Ot E03.9 HYPOTHYROIDISM, UNSPECIFIED 04/02/2016 WING, BOBAN N Ot E11.9 TYPE 2 DIABETES MELLITUS WITHOUT COMPLIC 04/02/2016 WING, BOBAN N Ot E78.5 HYPERLIPIDEMIA, UNSPECIFIED 04/02/2016 WING, BOBAN N Ot F17.210 NICOTINE DEPENDENCE, CIGARETTES, UNCOMPL 04/02/2016 WING, BOBAN N Ot I10 ESSENTIAL (PRIMARY) HYPERTENSION 04/02/2016 WING, BOBAN N Ot J44.9 CHRONIC OBSTRUCTIVE PULMONARY DISEASE, U 04/02/2016 WING, BOBAN N Ot Z51.11 ENCOUNTER FOR ANTINEOPLASTIC CHEMOTHERAP 04/02/2016 WING, BOBAN N Ot Z79.899 OTHER MANAGER CONTENT (CURRENT) DRUG THERAPY 04/11/2016 RAMOS SWEENEY S HRIS DEVELOPER Ot C34.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 OF UPPER LOBE, RIGHT 04/11/2016 RAMOS SWEENEY HRIS DEVELOPER Ot C79.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 04/11/2016 RAMOS SWEENEY HRIS DEVELOPER Ot E03.9 HYPOTHYROIDISM, UNSPECIFIED 04/11/2016 RAMOS SWEENEY HRIS DEVELOPER Ot E11.9 TYPE 2 DIABETES MELLITUS WITHOUT COMPLIC 04/11/2016 RAMOS SWEENEY HRIS DEVELOPER Ot E78.5 HYPERLIPIDEMIA, UNSPECIFIED 04/11/2016 RAMOS SWEENEY HRIS DEVELOPER Ot F17.210 NICOTINE DEPENDENCE, CIGARETTES, UNCOMPL 04/11/2016 RAMOS SWEENEY HRIS DEVELOPER Ot I10 ESSENTIAL (PRIMARY) HYPERTENSION 04/11/2016 RAMOS SWEENEY HRIS DEVELOPER Ot J44.9 CHRONIC OBSTRUCTIVE PULMONARY DISEASE, U 04/11/2016 SWEENEYRAMOS Call HRIS DEVELOPER Ot Z79.899 OTHER MANAGER CONTENT (CURRENT) DRUG THERAPY 05/15/2016 ANIKET DIMAS Eduar Ot C34.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 OF UPPER LOBE, RIGHT 05/15/2016 WING DONAOSIRIS Eduar Ot C79.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 05/15/2016 ANIKET DIMAS Eduar Ot E03.9 HYPOTHYROIDISM, UNSPECIFIED 05/15/2016 WING DONAOSIRIS Eduar Ot E11.9 TYPE 2 DIABETES MELLITUS WITHOUT COMPLIC 05/15/2016 WING DONAOSIRIS Eduar Ot E78.5 HYPERLIPIDEMIA, UNSPECIFIED 05/15/2016 ANIKET DIMAS N Ot F17.210 NICOTINE DEPENDENCE, CIGARETTES, UNCOMPL 05/15/2016 WINGANIKET Ot I10 ESSENTIAL (PRIMARY) HYPERTENSION 05/15/2016 ANIKET DIMAS Ot J44.9 CHRONIC OBSTRUCTIVE PULMONARY DISEASE, U 05/15/2016 WING ANIKET Witt Ot Z51.11 ENCOUNTER FOR ANTINEOPLASTIC CHEMOTHERAP 05/15/2016 ANIKET DIMAS Ot Z79.899 OTHER CORRECTION (CURRENT) DRUG THERAPY 05/26/2016 Ot 305.1 TOBACCO USE DISORDER 05/26/2016 Ot 490 BRONCHITIS NOS 05/26/2016 Ot 518.89 OTHER DISEASES OF LUNG, NEC 05/26/2016 Ot 786.07 WHEEZING 05/26/2016 Ot 786.2 COUGH 05/26/2016 Ot 722.4 CERVICAL DISC DEGEN 05/26/2016 KERON RONDON DO Ot 785.9 CARDIOVAS SYS SYMP NEC 05/26/2016 KERON RONDON DO Ot 789.39 ABDOMINAL/PELVIC SWELLING,MASS/LUMP, OTH 05/26/2016 TEDDY FLOYD DO Ot 305.1 TOBACCO USE DISORDER 05/26/2016 TEDDY FLOYD DO Ot 496 CHR AIRWAY OBSTRUCT NEC 05/26/2016 TEDDY FLOYD DO Ot 786.6 CHEST SWELLING/MASS/LUMP 05/26/2016 TEDDY FLOYD DO Ot V72.84 EXAM PRE-OPERATIVE NOS 05/26/2016 TEDDY FLOYD DO Ot V74.8 SCREEN-BACTERIAL DIS NEC 05/26/2016 TEDDY FLOYD DO Ot F17.200 NICOTINE DEPENDENCE, UNSPECIFIED, UNCOMP 05/26/2016 TEDDY FLOYD DO Ot R22.2 LOCALIZED SWELLING, MASS AND LUMP, TRUNK 05/26/2016 CHELLE METZGER, SALLY Mondragon Ot C34.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 OF UPPER LOBE, RIGHT 05/26/2016 RAMOS SWEENEY Ot C34.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 OF UPPER LOBE, RIGHT 05/26/2016 KAY MAGAÑA DO Ot C34.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 NEOPLASM OF UNSP PART OF UNSP 05/26/2016 KAY MAGAÑA DO Ot Z01.818 ENCOUNTER FOR OTHER PREPROCEDURAL EXAMIN 05/26/2016 ANIKET DIMAS Ot C34.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 OF UPPER LOBE, RIGHT 05/26/2016 ANIKET DIMAS Ot C79.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 05/26/2016 RAMOS SWEENEYP Ot C34.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 OF UPPER LOBE, RIGHT 05/26/2016 RAMOS SWEENEYP Ot C79.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 05/26/2016 RAMOS SWEENEYP Ot E03.9 HYPOTHYROIDISM, UNSPECIFIED 05/26/2016 RAMOS SWEENEYP Ot E11.9 TYPE 2 DIABETES MELLITUS WITHOUT COMPLIC 05/26/2016 RAMOS SWEENEYP Ot E78.5 HYPERLIPIDEMIA, UNSPECIFIED 05/26/2016 RAMOS SWEENEYP Ot F17.210 NICOTINE DEPENDENCE, CIGARETTES, UNCOMPL 05/26/2016 RAMOS SWEENEYP Ot I10 ESSENTIAL (PRIMARY) HYPERTENSION 05/26/2016 RAMOS SWEENEY HRIS DEVELOPER Ot J44.9 CHRONIC OBSTRUCTIVE PULMONARY DISEASE, U 05/26/2016 RAMOS SWEENEY HRIS DEVELOPER Ot Z79.899 OTHER MANAGER CONTENT (CURRENT) DRUG THERAPY 05/26/2016 RAMOS SWEENEY HRIS DEVELOPER Ot C34.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 OF UPPER LOBE, RIGHT 05/26/2016 RAMOS SWEENEY HRIS DEVELOPER Ot C34.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 OF UPPER LOBE, RIGHT 05/26/2016 RAMOS SWEENEY HRIS DEVELOPER Ot C79.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 05/26/2016 RAMOS SWEENEY HRIS DEVELOPER Ot E03.9 HYPOTHYROIDISM, UNSPECIFIED 05/26/2016 RAMOS SWEENEY HRIS DEVELOPER Ot E11.9 TYPE 2 DIABETES MELLITUS WITHOUT COMPLIC 05/26/2016 RAMOS SWEENEY HRIS DEVELOPER Ot E78.5 HYPERLIPIDEMIA, UNSPECIFIED 05/26/2016 RAMOS SWEENEY S HRIS DEVELOPER Ot F17.210 NICOTINE DEPENDENCE, CIGARETTES, UNCOMPL 05/26/2016 RAMOS SWEENEY HRIS DEVELOPER Ot I10 ESSENTIAL (PRIMARY) HYPERTENSION 05/26/2016 RAMOS SWEENEY HRIS DEVELOPER Ot J44.9 CHRONIC OBSTRUCTIVE PULMONARY DISEASE, U 05/26/2016 RAMOS SWEENEY HRIS DEVELOPER Ot Z79.899 OTHER CORRECTION (CURRENT) DRUG THERAPY 05/26/2016 WINGANIKET SAMSON N Ot C34.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 OF UPPER LOBE, RIGHT 05/26/2016 WINGANIKET SAMSON N Ot C79.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 05/26/2016 WING, DONAOSIRIS N Ot E03.9 HYPOTHYROIDISM, UNSPECIFIED 05/26/2016 WING BOBAN N Ot E11.9 TYPE 2 DIABETES MELLITUS WITHOUT COMPLIC 05/26/2016 WING BOBAN N Ot E78.5 HYPERLIPIDEMIA, UNSPECIFIED 05/26/2016 WING BOBAN N Ot F17.210 NICOTINE DEPENDENCE, CIGARETTES, UNCOMPL 05/26/2016 WING BOBAN N Ot I10 ESSENTIAL (PRIMARY) HYPERTENSION 05/26/2016 WING, DONAAN N Ot J44.9 CHRONIC OBSTRUCTIVE PULMONARY DISEASE, U 05/26/2016 ANIKET DIMAS N Ot Z51.11 ENCOUNTER FOR ANTINEOPLASTIC CHEMOTHERAP 05/26/2016 ANIKET DIMAS N Ot Z79.899 OTHER MANAGER CONTENT (CURRENT) DRUG THERAPY 05/26/2016 SWEENEYRAMOS Call S HRIS DEVELOPER Ot C34.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 OF UPPER LOBE, RIGHT 05/26/2016 SWEENEYRAMOS Call S HRIS DEVELOPER Ot C79.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 05/26/2016 RAMOS SWEENEY HRIS DEVELOPER Ot E03.9 HYPOTHYROIDISM, UNSPECIFIED 05/26/2016 SWEENEYRAMOS Call S HRIS DEVELOPER Ot E11.9 TYPE 2 DIABETES MELLITUS WITHOUT COMPLIC 05/26/2016 SWEENEYRAMOS Call S HRIS DEVELOPER Ot E78.5 HYPERLIPIDEMIA, UNSPECIFIED 05/26/2016 SWEENEYRAMOS S HRIS DEVELOPER Ot F17.210 NICOTINE DEPENDENCE, CIGARETTES, UNCOMPL 05/26/2016 SWEENEYRAMOS Call S HRIS DEVELOPER Ot I10 ESSENTIAL (PRIMARY) HYPERTENSION 05/26/2016 SWEENEYRAMOS Call S HRIS DEVELOPER Ot J44.9 CHRONIC OBSTRUCTIVE PULMONARY DISEASE, U 05/26/2016 SWEENEYRAMOS S HRIS DEVELOPER Ot Z79.899 OTHER MANAGER CONTENT (CURRENT) DRUG THERAPY 05/26/2016 WINGANIKET SAMSON N Ot C34.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 OF UPPER LOBE, RIGHT 05/26/2016 WINGANIKET SAMSON N Ot C79.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 05/26/2016 ANIKET DIMAS N Ot E03.9 HYPOTHYROIDISM, UNSPECIFIED 05/26/2016 WINGANIKET SAMSON N Ot E11.9 TYPE 2 DIABETES MELLITUS WITHOUT COMPLIC 05/26/2016 WINGDONAAN N Ot E78.5 HYPERLIPIDEMIA, UNSPECIFIED 05/26/2016 WING, DONAOSIRIS N Ot F17.210 NICOTINE DEPENDENCE, CIGARETTES, UNCOMPL 05/26/2016 WING, DONAOSIRIS N Ot I10 ESSENTIAL (PRIMARY) HYPERTENSION 05/26/2016 WINGANIKET N Ot J44.9 CHRONIC OBSTRUCTIVE PULMONARY DISEASE, U 05/26/2016 WINGANIKET N Ot Z51.11 ENCOUNTER FOR ANTINEOPLASTIC CHEMOTHERAP 05/26/2016 ANIKET DIMAS N Ot Z79.899 OTHER CORRECTION (CURRENT) DRUG THERAPY 05/26/2016 SWEENEYRAMOS Call S HRIS DEVELOPER Ot C34.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 OF UPPER LOBE, RIGHT 06/06/2016 WINGANIKET SAMSON N Ot C34.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 OF UPPER LOBE, RIGHT 06/06/2016 ANIKET DIMAS N Ot C79.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 06/06/2016 ANIKET DIMAS N Ot E03.9 HYPOTHYROIDISM, UNSPECIFIED 06/06/2016 ANIKET DIMAS N Ot E11.9 TYPE 2 DIABETES MELLITUS WITHOUT COMPLIC 06/06/2016 ANIKET DIMAS N Ot E78.5 HYPERLIPIDEMIA, UNSPECIFIED 06/06/2016 ANIKET DIMAS N Ot F17.210 NICOTINE DEPENDENCE, CIGARETTES, UNCOMPL 06/06/2016 ANIKET DIMAS N Ot I10 ESSENTIAL (PRIMARY) HYPERTENSION 06/06/2016 ANIKET DIMAS N Ot J44.9 CHRONIC OBSTRUCTIVE PULMONARY DISEASE, U 06/06/2016 ANIKET DIMAS N Ot Z51.11 ENCOUNTER FOR ANTINEOPLASTIC CHEMOTHERAP 06/06/2016 ANIKET DIMAS N Ot Z79.899 OTHER CORRECTION (CURRENT) DRUG THERAPY 06/15/2016 RAMOS SWEENEY HRIS DEVELOPER Ot C34.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 OF UPPER LOBE, RIGHT 06/26/2016 ANIKET DIMAS N Ot C34.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 OF UPPER LOBE, RIGHT 06/26/2016 ANIKET DIMAS N Ot C79.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 06/26/2016 ANIKET DIMAS N Ot E03.9 HYPOTHYROIDISM, UNSPECIFIED 06/26/2016 ANIKET DIMAS N Ot E11.9 TYPE 2 DIABETES MELLITUS WITHOUT COMPLIC 06/26/2016 ANIKET DIMAS N Ot E78.5 HYPERLIPIDEMIA, UNSPECIFIED 06/26/2016 ANIKET DIMAS N Ot F17.210 NICOTINE DEPENDENCE, CIGARETTES, UNCOMPL 06/26/2016 ANIKET DIMAS N Ot I10 ESSENTIAL (PRIMARY) HYPERTENSION 06/26/2016 ANIKET DIMAS N Ot J44.9 CHRONIC OBSTRUCTIVE PULMONARY DISEASE, U 06/26/2016 ANIKET DIMAS N Ot Z51.11 ENCOUNTER FOR ANTINEOPLASTIC CHEMOTHERAP 06/26/2016 ANIKET DIMAS N Ot Z79.899 OTHER CORRECTION (CURRENT) DRUG THERAPY 06/27/2016 Ot 305.1 TOBACCO USE DISORDER 06/27/2016 Ot 490 BRONCHITIS NOS 06/27/2016 Ot 518.89 OTHER DISEASES OF LUNG, NEC 06/27/2016 Ot 786.07 WHEEZING 06/27/2016 Ot 786.2 COUGH 06/27/2016 Ot 722.4 CERVICAL DISC DEGEN 06/27/2016 GELKERON WHITMAN DO Ot 785.9 CARDIOVAS SYS SYMP NEC 06/27/2016 KERON RONDON DO Ot 789.39 ABDOMINAL/PELVIC SWELLING,MASS/LUMP, OTH 06/27/2016 TEDDY FLOYD DO Ot 305.1 TOBACCO USE DISORDER 06/27/2016 TEDDY FLOYD DO Ot 496 CHR AIRWAY OBSTRUCT NEC 06/27/2016 TEDDY FLOYD DO Ot 786.6 CHEST SWELLING/MASS/LUMP 06/27/2016 TEDDY FLOYD DO Ot V72.84 EXAM PRE-OPERATIVE NOS 06/27/2016 TEDDY FLOYD DO Ot V74.8 SCREEN-BACTERIAL DIS NEC 06/27/2016 TEDDY FLOYD DO Ot F17.200 NICOTINE DEPENDENCE, UNSPECIFIED, UNCOMP 06/27/2016 TEDDY FLOYD DO Ot R22.2 LOCALIZED SWELLING, MASS AND LUMP, TRUNK 06/27/2016 CHELLE METZGER, SALLY Mondragon Ot C34.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 OF UPPER LOBE, RIGHT 06/27/2016 RAMOS SWEENEY Ot C34.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 OF UPPER LOBE, RIGHT 06/27/2016 KAY MAGAÑA DO Ot C34.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 NEOPLASM OF UNSP PART OF UNSP 06/27/2016 KAY MAGAÑA DO Ot Z01.818 ENCOUNTER FOR OTHER PREPROCEDURAL EXAMIN 06/27/2016 ANIKET DIMAS Ot C34.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 OF UPPER LOBE, RIGHT 06/27/2016 ANIKET DIMAS Ot C79.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 06/27/2016 RAMOS SWEENEY Ot C34.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 OF UPPER LOBE, RIGHT 06/27/2016 RAMOS SWEENEY Ot C79.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 06/27/2016 RAMOS SWEENEY Ot E03.9 HYPOTHYROIDISM, UNSPECIFIED 06/27/2016 RAMOS SWEENEY Ot E11.9 TYPE 2 DIABETES MELLITUS WITHOUT COMPLIC 06/27/2016 RAMOS SWEENEY Ot E78.5 HYPERLIPIDEMIA, UNSPECIFIED 06/27/2016 RAMOS SWEENEY Ot F17.210 NICOTINE DEPENDENCE, CIGARETTES, UNCOMPL 06/27/2016 SWEENEY, HILAH S HRIS DEVELOPER Ot I10 ESSENTIAL (PRIMARY) HYPERTENSION 06/27/2016 SWEENEYTARANCYNTHIA Call HRIS DEVELOPER Ot J44.9 CHRONIC OBSTRUCTIVE PULMONARY DISEASE, U 06/27/2016 TARAN SWEENEYCYNTHIA Call HRIS DEVELOPER Ot Z79.899 OTHER MANAGER CONTENT (CURRENT) DRUG THERAPY 06/27/2016 SWEENEYTARANCYNTHIA Call HRIS DEVELOPER Ot C34.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 OF UPPER LOBE, RIGHT 06/27/2016 SWEENEYTARANCYNTHIA Jakub HRIS DEVELOPER Ot C34.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 OF UPPER LOBE, RIGHT 06/27/2016 ZAHRA RAMOS S HRIS DEVELOPER Ot C79.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 06/27/2016 TARAN SWEENEYCYNTHIA Call HRIS DEVELOPER Ot E03.9 HYPOTHYROIDISM, UNSPECIFIED 06/27/2016 TARAN SWEENEYCYNTHIA S HRIS DEVELOPER Ot E11.9 TYPE 2 DIABETES MELLITUS WITHOUT COMPLIC 06/27/2016 TARAN SWEENEYCYNTHIA S HRIS DEVELOPER Ot E78.5 HYPERLIPIDEMIA, UNSPECIFIED 06/27/2016 RAMOS SWEENEY S HRIS DEVELOPER Ot F17.210 NICOTINE DEPENDENCE, CIGARETTES, UNCOMPL 06/27/2016 TARAN SWEENEYCYNTHIA S HRIS DEVELOPER Ot I10 ESSENTIAL (PRIMARY) HYPERTENSION 06/27/2016 RAMOS SWEENEY HRIS DEVELOPER Ot J44.9 CHRONIC OBSTRUCTIVE PULMONARY DISEASE, U 06/27/2016 TARAN SWEENEYCYNTHIA Jakub HRIS DEVELOPER Ot Z79.899 OTHER MANAGER CONTENT (CURRENT) DRUG THERAPY 06/27/2016 TARAN SWEENEYCYNTHIA Call HRIS DEVELOPER Ot C34.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 OF UPPER LOBE, RIGHT 06/27/2016 TARAN SWEENEYCYNTHIA Jakub HRIS DEVELOPER Ot C79.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 06/27/2016 RAMOS SWEENEY Jakub HRIS DEVELOPER Ot E03.9 HYPOTHYROIDISM, UNSPECIFIED 06/27/2016 TARAN SWEENEYCYNTHIA Call HRIS DEVELOPER Ot E11.9 TYPE 2 DIABETES MELLITUS WITHOUT COMPLIC 06/27/2016 RAMOS SWEENEY S HRIS DEVELOPER Ot E78.5 HYPERLIPIDEMIA, UNSPECIFIED 06/27/2016 RAMOS SWEENEY S HRIS DEVELOPER Ot F17.210 NICOTINE DEPENDENCE, CIGARETTES, UNCOMPL 06/27/2016 RAMOS SWEENEY S HRIS DEVELOPER Ot I10 ESSENTIAL (PRIMARY) HYPERTENSION 06/27/2016 RAMOS SWEENEY HRIS DEVELOPER Ot J44.9 CHRONIC OBSTRUCTIVE PULMONARY DISEASE, U 06/27/2016 RAMOS SWEENEY S HRIS DEVELOPER Ot Z79.899 OTHER MANAGER CONTENT (CURRENT) DRUG THERAPY 06/27/2016 SWEENEYRAMOS Call HRIS DEVELOPER Ot C34.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 OF UPPER LOBE, RIGHT 06/27/2016 ANIKET DIMAS Ot C34.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 OF UPPER LOBE, RIGHT 06/27/2016 ANIKET DIMAS Ot C79.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 06/27/2016 ANIKET DIMAS Ot E03.9 HYPOTHYROIDISM, UNSPECIFIED 06/27/2016 ANIKET DIMAS Ot E11.9 TYPE 2 DIABETES MELLITUS WITHOUT COMPLIC 06/27/2016 ANIKET DIMAS Ot E78.5 HYPERLIPIDEMIA, UNSPECIFIED 06/27/2016 ANIKET DIMAS Ot F17.210 NICOTINE DEPENDENCE, CIGARETTES, UNCOMPL 06/27/2016 ANIKET DIMAS Ot I10 ESSENTIAL (PRIMARY) HYPERTENSION 06/27/2016 ANIKET DIMAS Ot J44.9 CHRONIC OBSTRUCTIVE PULMONARY DISEASE, U 06/27/2016 ANIKET DIMAS Ot Z51.11 ENCOUNTER FOR ANTINEOPLASTIC CHEMOTHERAP 06/27/2016 ANIKET DIMAS Ot Z79.899 OTHER CORRECTION (CURRENT) DRUG THERAPY 06/27/2016 SWEENEYRAMOS Call [facility] Ot C34.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 OF UPPER LOBE, RIGHT 06/27/2016 Ot 305.1 TOBACCO USE DISORDER 06/27/2016 Ot 490 BRONCHITIS NOS 06/27/2016 Ot 518.89 OTHER DISEASES OF LUNG, NEC 06/27/2016 Ot 786.07 WHEEZING 06/27/2016 Ot 786.2 COUGH 06/27/2016 Ot 722.4 CERVICAL DISC DEGEN 06/27/2016 KERON RONDON DO Ot 785.9 CARDIOVAS SYS SYMP NEC 06/27/2016 KERON RONDON DO Ot 789.39 ABDOMINAL/PELVIC SWELLING,MASS/LUMP, OTH 06/27/2016 TEDDY FLOYD DO Ot 305.1 TOBACCO USE DISORDER 06/27/2016 TEDDY FLOYD DO Ot 496 CHR AIRWAY OBSTRUCT NEC 06/27/2016 TEDDY FLOYD DO Ot 786.6 CHEST SWELLING/MASS/LUMP 06/27/2016 TEDDY FLOYD DO Ot V72.84 EXAM PRE-OPERATIVE NOS 06/27/2016 EVERETT DO, TEDDY M Ot V74.8 SCREEN-BACTERIAL DIS NEC 06/27/2016 TEDDY FLOYD DO Ot F17.200 NICOTINE DEPENDENCE, UNSPECIFIED, UNCOMP 06/27/2016 TEDDY FLOYD DO Ot R22.2 LOCALIZED SWELLING, MASS AND LUMP, TRUNK 06/27/2016 CHELLE METZGER, SALLY Mondragon Ot C34.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 OF UPPER LOBE, RIGHT 06/27/2016 RAMOS SWEENEYP Ot C34.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 OF UPPER LOBE, RIGHT 06/27/2016 KAY MAGAÑA DO Ot C34.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 NEOPLASM OF UNSP PART OF UNSP 06/27/2016 KAY MAGAÑA DO Ot Z01.818 ENCOUNTER FOR OTHER PREPROCEDURAL EXAMIN 06/27/2016 ANIKET DIMAS Ot C34.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 OF UPPER LOBE, RIGHT 06/27/2016 ANIKET DIMAS Ot C79.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 06/27/2016 RAMOS SWEENEYP Ot C34.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 OF UPPER LOBE, RIGHT 06/27/2016 RAMOS SWEENEY HRIS DEVELOPER Ot C79.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 06/27/2016 RAMOS SWEENEY HRIS DEVELOPER Ot E03.9 HYPOTHYROIDISM, UNSPECIFIED 06/27/2016 RAMOS SWEENEY HRIS DEVELOPER Ot E11.9 TYPE 2 DIABETES MELLITUS WITHOUT COMPLIC 06/27/2016 RAMOS SWEENEY HRIS DEVELOPER Ot E78.5 HYPERLIPIDEMIA, UNSPECIFIED 06/27/2016 RAMOS SWEENEY HRIS DEVELOPER Ot F17.210 NICOTINE DEPENDENCE, CIGARETTES, UNCOMPL 06/27/2016 RAMOS SWEENEY HRIS DEVELOPER Ot I10 ESSENTIAL (PRIMARY) HYPERTENSION 06/27/2016 RAMOS SWEENEYP Ot J44.9 CHRONIC OBSTRUCTIVE PULMONARY DISEASE, U 06/27/2016 RAMOS SWEENEY HRIS DEVELOPER Ot Z79.899 OTHER CORRECTION (CURRENT) DRUG THERAPY 06/27/2016 RAMOS SWEENEY HRIS DEVELOPER Ot C34.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 OF UPPER LOBE, RIGHT 06/27/2016 RAMOS SWEENEY HRIS DEVELOPER Ot C34.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 OF UPPER LOBE, RIGHT 06/27/2016 RAMOS SWEENEYP Ot C79.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 06/27/2016 SWEENEY, HILAH S HRIS DEVELOPER Ot E03.9 HYPOTHYROIDISM, UNSPECIFIED 06/27/2016 RAMOS SWEENEY HRIS DEVELOPER Ot E11.9 TYPE 2 DIABETES MELLITUS WITHOUT COMPLIC 06/27/2016 RAMOS SWEENEY HRIS DEVELOPER Ot E78.5 HYPERLIPIDEMIA, UNSPECIFIED 06/27/2016 RAMOS SWEENEY HRIS DEVELOPER Ot F17.210 NICOTINE DEPENDENCE, CIGARETTES, UNCOMPL 06/27/2016 RAMOS SWEENEY HRIS DEVELOPER Ot I10 ESSENTIAL (PRIMARY) HYPERTENSION 06/27/2016 RAMOS SWEENEY HRIS DEVELOPER Ot J44.9 CHRONIC OBSTRUCTIVE PULMONARY DISEASE, U 06/27/2016 RAMOS SWEENEY HRIS DEVELOPER Ot Z79.899 OTHER MANAGER CONTENT (CURRENT) DRUG THERAPY 06/27/2016 RAMOS SWEENEY HRIS DEVELOPER Ot C34.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 OF UPPER LOBE, RIGHT 06/27/2016 RAMOS SWEENEY HRIS DEVELOPER Ot C79.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 06/27/2016 SWEENEY RAMOS Call HRIS DEVELOPER Ot E03.9 HYPOTHYROIDISM, UNSPECIFIED 06/27/2016 RAMOS SWEENEY HRIS DEVELOPER Ot E11.9 TYPE 2 DIABETES MELLITUS WITHOUT COMPLIC 06/27/2016 RAMOS SWEENEY HRIS DEVELOPER Ot E78.5 HYPERLIPIDEMIA, UNSPECIFIED 06/27/2016 RAMOS SWEENEY HRIS DEVELOPER Ot F17.210 NICOTINE DEPENDENCE, CIGARETTES, UNCOMPL 06/27/2016 RAMOS SWEENEY HRIS DEVELOPER Ot I10 ESSENTIAL (PRIMARY) HYPERTENSION 06/27/2016 RAMOS SWEENEY HRIS DEVELOPER Ot J44.9 CHRONIC OBSTRUCTIVE PULMONARY DISEASE, U 06/27/2016 RAMOS SWEENEY HRIS DEVELOPER Ot Z79.899 OTHER CORRECTION (CURRENT) DRUG THERAPY 06/27/2016 SWEENEYRAMOS Call HRIS DEVELOPER Ot C34.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 OF UPPER LOBE, RIGHT 06/27/2016 ANIKET DIMAS N Ot C34.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 OF UPPER LOBE, RIGHT 06/27/2016 ANIKET DIMAS N Ot C79.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 06/27/2016 ANIKET DIMAS N Ot E03.9 HYPOTHYROIDISM, UNSPECIFIED 06/27/2016 ANIKET DIMAS N Ot E11.9 TYPE 2 DIABETES MELLITUS WITHOUT COMPLIC 06/27/2016 ANIKET DIMAS N Ot E78.5 HYPERLIPIDEMIA, UNSPECIFIED 06/27/2016 ANIKET DIMAS N Ot F17.210 NICOTINE DEPENDENCE, CIGARETTES, UNCOMPL 06/27/2016 ANIKET DIMAS N Ot I10 ESSENTIAL (PRIMARY) HYPERTENSION 06/27/2016 ANIKET DIMAS Eduar Ot J44.9 CHRONIC OBSTRUCTIVE PULMONARY DISEASE, U 06/27/2016 ANIKET DIMAS N Ot Z51.11 ENCOUNTER FOR ANTINEOPLASTIC CHEMOTHERAP 06/27/2016 ANIKET DIMAS N Ot Z79.899 OTHER CORRECTION (CURRENT) DRUG THERAPY 06/27/2016 RAMOS SWEENEY HRIS DEVELOPER Ot C34.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 OF UPPER LOBE, RIGHT 06/27/2016 ANIKET DIMAS N Ot C34.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 OF UPPER LOBE, RIGHT 06/27/2016 ANIKET DIMAS Eduar Ot C79.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 06/27/2016 TEDDY FLOYD DO Ot F17.200 NICOTINE DEPENDENCE, UNSPECIFIED, UNCOMP 06/27/2016 TEDDY FLOYD DO Ot R22.2 LOCALIZED SWELLING, MASS AND LUMP, TRUNK 08/23/2016 RAMOS SWEENEY HRIS DEVELOPER Ot C34.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 OF UPPER LOBE, RIGHT 08/31/2016 ANIKET DIMAS N Ot C34.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 OF UPPER LOBE, RIGHT 08/31/2016 ANIKET DIMAS Eduar Ot C79.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 08/31/2016 ANIKET DIMAS Eduar Ot E03.9 HYPOTHYROIDISM, UNSPECIFIED 08/31/2016 ANIKET DIMAS N Ot E11.9 TYPE 2 DIABETES MELLITUS WITHOUT COMPLIC 08/31/2016 ANIKET DIMAS Eduar Ot E78.5 HYPERLIPIDEMIA, UNSPECIFIED 08/31/2016 ANIKET DIMAS N Ot F17.210 NICOTINE DEPENDENCE, CIGARETTES, UNCOMPL 08/31/2016 ANIKET DIMAS N Ot I10 ESSENTIAL (PRIMARY) HYPERTENSION 08/31/2016 ANIKET DIMAS N Ot J44.9 CHRONIC OBSTRUCTIVE PULMONARY DISEASE, U 08/31/2016 ANIKET DIMAS N Ot Z51.11 ENCOUNTER FOR ANTINEOPLASTIC CHEMOTHERAP 08/31/2016 ANIKET DIMAS N Ot Z79.899 OTHER MANAGER CONTENT (CURRENT) DRUG THERAPY 09/06/2016 ANIKET DIMAS N Ot C34.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 OF UPPER LOBE, RIGHT 09/06/2016 ANIKET DIMAS N Ot C79.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 09/06/2016 ANIKET DIMAS N Ot E03.9 HYPOTHYROIDISM, UNSPECIFIED 09/06/2016 ANIKET DIMAS N Ot E11.9 TYPE 2 DIABETES MELLITUS WITHOUT COMPLIC 09/06/2016 ANIKET DIMAS N Ot E78.5 HYPERLIPIDEMIA, UNSPECIFIED 09/06/2016 ANIKET DIMAS N Ot F17.210 NICOTINE DEPENDENCE, CIGARETTES, UNCOMPL 09/06/2016 AINKET DIMAS N Ot I10 ESSENTIAL (PRIMARY) HYPERTENSION 09/06/2016 ANIKET DIMAS N Ot J44.9 CHRONIC OBSTRUCTIVE PULMONARY DISEASE, U 09/06/2016 WINGANIKET SAMSON N Ot Z51.11 ENCOUNTER FOR ANTINEOPLASTIC CHEMOTHERAP 09/06/2016 ANIKET DIMAS N Ot Z79.899 OTHER MANAGER CONTENT (CURRENT) DRUG THERAPY 09/19/2016 RAMOS SWEENEY Ot C34.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 OF UPPER LOBE, RIGHT 09/26/2016 WING ANIKET N Ot C34.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 OF UPPER LOBE, RIGHT 09/26/2016 ANIKET DIMAS N Ot C79.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 09/26/2016 ANIKET DIMAS N Ot E03.9 HYPOTHYROIDISM, UNSPECIFIED 09/26/2016 ANIKET DIMAS N Ot E11.9 TYPE 2 DIABETES MELLITUS WITHOUT COMPLIC 09/26/2016 ANIKET DIMAS N Ot E78.5 HYPERLIPIDEMIA, UNSPECIFIED 09/26/2016 ANIKET DIMAS N Ot F17.210 NICOTINE DEPENDENCE, CIGARETTES, UNCOMPL 09/26/2016 DONA DIMASOSIRIS N Ot I10 ESSENTIAL (PRIMARY) HYPERTENSION 09/26/2016 ANIKET DIMAS N Ot J44.9 CHRONIC OBSTRUCTIVE PULMONARY DISEASE, U 09/26/2016 DONA DIMASAN N Ot Z51.11 ENCOUNTER FOR ANTINEOPLASTIC CHEMOTHERAP 09/26/2016 DONA DIMASOSIRIS N Ot Z79.899 OTHER MANAGER CONTENT (CURRENT) DRUG THERAPY 09/26/2016 WING BOBAN N Ot C34.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 OF UPPER LOBE, RIGHT 09/26/2016 WING, ANIKET N Ot C79.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 09/26/2016 DONA DIMASOSIRIS N Ot E03.9 HYPOTHYROIDISM, UNSPECIFIED 09/26/2016 WING DONAAN N Ot E11.9 TYPE 2 DIABETES MELLITUS WITHOUT COMPLIC 09/26/2016 WING ANIKET N Ot E78.5 HYPERLIPIDEMIA, UNSPECIFIED 09/26/2016 WING, BOBAN N Ot F17.210 NICOTINE DEPENDENCE, CIGARETTES, UNCOMPL 09/26/2016 WING DONAOSIRIS N Ot I10 ESSENTIAL (PRIMARY) HYPERTENSION 09/26/2016 WING ANIKET N Ot J44.9 CHRONIC OBSTRUCTIVE PULMONARY DISEASE, U 09/26/2016 WING ANIKET N Ot Z51.11 ENCOUNTER FOR ANTINEOPLASTIC CHEMOTHERAP 09/26/2016 WING DONAAN N Ot Z79.899 OTHER MANAGER CONTENT (CURRENT) DRUG THERAPY 09/26/2016 WING ANIKET N Ot C34.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 OF UPPER LOBE, RIGHT 09/26/2016 WING ANIKET N Ot C79.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 09/26/2016 WING ANIKET N Ot E03.9 HYPOTHYROIDISM, UNSPECIFIED 09/26/2016 WING BOBAN N Ot E11.9 TYPE 2 DIABETES MELLITUS WITHOUT COMPLIC 09/26/2016 WING DONAAN N Ot E78.5 HYPERLIPIDEMIA, UNSPECIFIED 09/26/2016 WING, BOBAN N Ot F17.210 NICOTINE DEPENDENCE, CIGARETTES, UNCOMPL 09/26/2016 WING ANIKET N Ot I10 ESSENTIAL (PRIMARY) HYPERTENSION 09/26/2016 WING ANIKET N Ot J44.9 CHRONIC OBSTRUCTIVE PULMONARY DISEASE, U 09/26/2016 WING DONAOSIRIS N Ot Z51.11 ENCOUNTER FOR ANTINEOPLASTIC CHEMOTHERAP 09/26/2016 WING ANIKET N Ot Z79.899 OTHER MANAGER CONTENT (CURRENT) DRUG THERAPY 09/28/2016 WING DONAAN N Ot C34.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 OF UPPER LOBE, RIGHT 09/28/2016 WING BOBAN N Ot C79.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 09/28/2016 WING ANIKET N Ot E03.9 HYPOTHYROIDISM, UNSPECIFIED 09/28/2016 WING, BOBAN N Ot E11.9 TYPE 2 DIABETES MELLITUS WITHOUT COMPLIC 09/28/2016 WING DONAAN N Ot E78.5 HYPERLIPIDEMIA, UNSPECIFIED 09/28/2016 WING, BOBAN N Ot F17.210 NICOTINE DEPENDENCE, CIGARETTES, UNCOMPL 09/28/2016 WING, ANIKET Witt Ot I10 ESSENTIAL (PRIMARY) HYPERTENSION 09/28/2016 ANIKET DIMAS Ot J44.9 CHRONIC OBSTRUCTIVE PULMONARY DISEASE, U 09/28/2016 WING ANIKET Witt Ot Z51.11 ENCOUNTER FOR ANTINEOPLASTIC CHEMOTHERAP 09/28/2016 WING ANIKET Witt Ot Z79.899 OTHER CORRECTION (CURRENT) DRUG THERAPY 10/03/2016 GELLENDER DO, KERON Mccurdy Ot A41.9 SEPSIS, UNSPECIFIED ORGANISM 10/03/2016 GELLENDER DO, KERON Mccurdy Ot C34.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 10/03/2016 GELLENDER DO, KERON Mccurdy Ot C79.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 10/03/2016 GELLENDER DO, KERON Mccurdy Ot D64.9 ANEMIA, UNSPECIFIED 10/03/2016 GELLENDER DO, KERON Mccurdy Ot E03.9 HYPOTHYROIDISM, UNSPECIFIED 10/03/2016 GELLENDER DO, KERON Mccurdy Ot E11.9 TYPE 2 DIABETES MELLITUS WITHOUT COMPLIC 10/03/2016 GELLENDER DO, KERON Mccurdy Ot E78.00 PURE HYPERCHOLESTEROLEMIA, UNSPECIFIED 10/03/2016 GELLENDER DO, KERON Mccurdy Ot E78.5 HYPERLIPIDEMIA, UNSPECIFIED 10/03/2016 GELLENDER DOKERON Ot E86.0 DEHYDRATION 10/03/2016 GELLENDER DO, KERON Mccurdy Ot F17.210 NICOTINE DEPENDENCE, CIGARETTES, UNCOMPL 10/03/2016 GELLENDER DO, KERON Mccurdy Ot F41.9 ANXIETY DISORDER, UNSPECIFIED 10/03/2016 GELLENDER DOKERON Ot I10 ESSENTIAL (PRIMARY) HYPERTENSION 10/03/2016 GELLENDER DOKERON Ot J18.9 PNEUMONIA, UNSPECIFIED ORGANISM 10/03/2016 GELLENDER DOKERON Ot J44.0 CHRONIC OBSTRUCTIVE PULMON DISEASE W ACU 10/03/2016 GELLENDER DOKERON Ot J96.10 CHRONIC RESPIRATORY FAILURE, UNSP W HYPO 10/03/2016 GELLENDER DOKERON Ot R00.0 TACHYCARDIA, UNSPECIFIED 10/03/2016 GELLENDER DOKERON Ot R64 CACHEXIA 10/03/2016 GELLENDER DOKERON Ot T48.6X5A ADVERSE EFFECT OF ANTIASTHMATICS, INITIA 10/03/2016 GELLENDER DOKERON Ot Z66 DO NOT RESUSCITATE 10/03/2016 GELLENDER KERON DESAI Ot Z79.84 MANAGER CONTENT (CURRENT) USE OF ORAL HYPOGLYC 10/03/2016 KERON RONDON DO Ot Z92.21 PERSONAL HISTORY OF ANTINEOPLASTIC CHEMO 10/03/2016 KERON RONDON DO Ot Z92.3 PERSONAL HISTORY OF IRRADIATION 11/20/2016 ANIKET DIMAS Ot C34.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 11/20/2016 ANIKET DIMAS Ot C79.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 11/20/2016 ANIKET DIMAS Ot E03.9 HYPOTHYROIDISM, UNSPECIFIED 11/20/2016 ANIKET DIMAS Ot E11.9 TYPE 2 DIABETES MELLITUS WITHOUT COMPLIC 11/20/2016 ANIKET DIMAS Ot E78.00 PURE HYPERCHOLESTEROLEMIA, UNSPECIFIED 11/20/2016 ANIKET DIMAS Ot F17.210 NICOTINE DEPENDENCE, CIGARETTES, UNCOMPL 11/20/2016 ANIKET DIMAS Ot F41.9 ANXIETY DISORDER, UNSPECIFIED 11/20/2016 ANIKTE DIMAS Ot G93.6 CEREBRAL EDEMA 11/20/2016 ANIKET DIMAS Ot I10 ESSENTIAL (PRIMARY) HYPERTENSION 11/20/2016 ANIKET DIMAS Ot J30.2 OTHER SEASONAL ALLERGIC RHINITIS 11/20/2016 ANIKET DIMAS Ot J44.9 CHRONIC OBSTRUCTIVE PULMONARY DISEASE, U 11/20/2016 ANIKET DIMAS Ot K59.09 OTHER CONSTIPATION 11/20/2016 ANIKET DIMAS Ot M19.91 PRIMARY OSTEOARTHRITIS, UNSPECIFIED SITE 11/20/2016 ANIKET DIMAS Ot M48.00 SPINAL STENOSIS, SITE UNSPECIFIED 11/20/2016 ANIKET DIMAS Ot R29.810 FACIAL WEAKNESS 11/20/2016 ANIKET DIMAS Ot R41.82 ALTERED MENTAL STATUS, UNSPECIFIED 11/20/2016 ANIKET DIMAS Ot R47.81 SLURRED SPEECH 11/20/2016 ANIKET DIMAS Ot R53.1 WEAKNESS 11/20/2016 ANIKET DIMAS Ot R63.6 UNDERWEIGHT 11/20/2016 ANIKET DIMAS Ot Z66 DO NOT RESUSCITATE 11/20/2016 ANIKET DIMAS Ot Z79.84 CORRECTION (CURRENT) USE OF ORAL HYPOGLYC Procedures Results Test Result Range Influenza virus A and B antigen detection - 09/26/16 16:42 FLU RESULT NEGATIVE FOR INFLUENZA A AND B ANTIGENS BY [facility] Complete blood count (CBC) with automated white blood cell (WBC) differential - 09/26/16 17:07 Blood leukocytes automated count (number/volume) 7.5 10*3/ uL 4.3-11.0 Blood erythrocytes automated count (number/volume) 3.33 10*6 /uL 4.35-5.85 Venous blood hemoglobin measurement (mass/volume) 10.0 g/dL 11.5-16.0 Blood hematocrit (volume fraction) 31 % 35-52 Automated erythrocyte mean corpuscular volume 93 [foz_us] 80-99 Automated erythrocyte mean corpuscular hemoglobin (mass per erythrocyte) 30 pg 25-34 Automated erythrocyte mean corpuscular hemoglobin concentration measurement ( mass/volume) 32 g/dL 32-36 Automated erythrocyte distribution width ratio 17.1 % 10.0-14.5 Automated blood platelet count (count/volume) 331 10*3/uL 130-400 Automated blood platelet mean volume measurement 9.2 [foz_us ] 7.4-10.4 Automated blood neutrophils/100 leukocytes 92 % 42-75 Automated blood lymphocytes/100 leukocytes 6 % 12-44 Blood monocytes/100 leukocytes 2 % 0-12 Automated blood eosinophils/100 leukocytes 0 % 0-10 Automated blood basophils/100 leukocytes 0 % 0-10 Blood neutrophils automated count (number/volume) 6.9 10*3 1.8-7.8 Blood lymphocytes automated count (number/volume) 0.5 10*3 1.0-4.0 Blood monocytes automated count (number/volume) 0.2 10*3 0.0-1.0 Automated eosinophil count 0.0 10*3/uL 0.0-0.3 Automated blood basophil count (count/volume) 0.0 10*3/uL 0.0-0.1 PT panel in platelet poor plasma by coagulation assay - 09/26/16 17:07 Prothrombin time (PT) in platelet poor plasma by coagulation assay 12.8 s 12.2-14.7 INR in platelet poor plasma or blood by coagulation assay 1.0 0.8-1.4 Activated partial thromboplastin time (aPTT) in platelet poor plasma bycoagulation assay - 09/26/16 17:07 Activated partial thromboplastin time (aPTT) in platelet poor plasma bycoagulation assay 29 s 24-35 Blood lactic acid measurement (moles/volume) - 09/26/16 17:07 Blood lactic acid measurement (moles/volume) 1.3 mmol/L 0.5-2.0 Comprehensive metabolic panel - 09/26/16 17:07 Serum or plasma sodium measurement (moles/volume) 131 mmol/ L 135-145 Serum or plasma potassium measurement (moles/volume) 3.8 mmol/L 3.6-5.0 Serum or plasma chloride measurement (moles/volume) 97 mmol/ L 98-107 Carbon dioxide 25 mmol/L 21-32 Serum or plasma anion gap determination (moles/volume) 9 mmol/L 5-14 Serum or plasma urea nitrogen measurement (mass/volume) 13 mg/dL 7-18 Serum or plasma creatinine measurement (mass/volume) 0.72 mg /dL 0.60-1.30 Serum or plasma urea nitrogen/creatinine mass ratio 18 NRG Serum or plasma creatinine measurement with calculation of estimated glomerular filtration rate > NRG Serum or plasma glucose measurement (mass/volume) 119 mg/dL 70-105 Serum or plasma calcium measurement (mass/volume) 8.5 mg/dL 8.5-10.1 Serum or plasma total bilirubin measurement (mass/volume) 0.4 mg/dL 0.1-1.0 Serum or plasma alkaline phosphatase measurement (enzymatic activity/volume) 66 U/L 40-136 Serum or plasma aspartate aminotransferase measurement (enzymatic activity/ volume) 12 U/L 5-34 Serum or plasma alanine aminotransferase measurement (enzymatic activity/volume ) 10 U/L 0-55 Serum or plasma protein measurement (mass/volume) 6.2 g/dL 6.4-8.2 Serum or plasma albumin measurement (mass/volume) 3.3 g/dL 3.2-4.5 Blood manual differential performed detection - 09/26/16 17:07 Blood monocytes/100 leukocytes 4 % NRG Manual blood segmented neutrophils/100 leukocytes 83 % NRG Manual blood lymphocytes/100 leukocytes 13 % NRG Blood erythrocyte morphology finding identification NORMAL NRG Bacterial blood culture - 09/26/16 17:07 Bacterial blood culture NG NRG Bacterial blood culture - 09/26/16 17:30 Bacterial blood culture NG NRG Capillary blood glucose measurement by glucometer (mass/volume) - 09/26/16 21: 29 Capillary blood glucose measurement by glucometer (mass/volume) 160 mg/dL 70-110 Capillary blood glucose measurement by glucometer (mass/volume) - 09/27/16 05: 22 Capillary blood glucose measurement by glucometer (mass/volume) 227 mg/dL 70-110 Complete blood count (CBC) with automated white blood cell (WBC) differential - 09/27/16 05:30 Blood leukocytes automated count (number/volume) 3.8 10*3/ uL 4.3-11.0 Blood erythrocytes automated count (number/volume) 3.00 10*6 /uL 4.35-5.85 Venous blood hemoglobin measurement (mass/volume) 8.9 g/dL 11.5-16.0 Blood hematocrit (volume fraction) 28 % 35-52 Automated erythrocyte mean corpuscular volume 94 [foz_us] 80-99 Automated erythrocyte mean corpuscular hemoglobin (mass per erythrocyte) 30 pg 25-34 Automated erythrocyte mean corpuscular hemoglobin concentration measurement ( mass/volume) 32 g/dL 32-36 Automated erythrocyte distribution width ratio 17.1 % 10.0-14.5 Automated blood platelet count (count/volume) 287 10*3/uL 130-400 Automated blood platelet mean volume measurement 9.4 [foz_us ] 7.4-10.4 Automated blood neutrophils/100 leukocytes 93 % 42-75 Automated blood lymphocytes/100 leukocytes 6 % 12-44 Blood monocytes/100 leukocytes 1 % 0-12 Automated blood eosinophils/100 leukocytes 0 % 0-10 Automated blood basophils/100 leukocytes 0 % 0-10 Blood neutrophils automated count (number/volume) 3.6 10*3 1.8-7.8 Blood lymphocytes automated count (number/volume) 0.2 10*3 1.0-4.0 Blood monocytes automated count (number/volume) 0.0 10*3 0.0-1.0 Automated eosinophil count 0.0 10*3/uL 0.0-0.3 Automated blood basophil count (count/volume) 0.0 10*3/uL 0.0-0.1 Comprehensive metabolic panel - 09/27/16 05:30 Serum or plasma sodium measurement (moles/volume) 137 mmol/ L 135-145 Serum or plasma potassium measurement (moles/volume) 4.1 mmol/L 3.6-5.0 Serum or plasma chloride measurement (moles/volume) 106 mmol /L 98-107 Carbon dioxide 20 mmol/L 21-32 Serum or plasma anion gap determination (moles/volume) 11 mmol/L 5-14 Serum or plasma urea nitrogen measurement (mass/volume) 12 mg/dL 7-18 Serum or plasma creatinine measurement (mass/volume) 0.68 mg /dL 0.60-1.30 Serum or plasma urea nitrogen/creatinine mass ratio 18 NRG Serum or plasma creatinine measurement with calculation of estimated glomerular filtration rate > NRG Serum or plasma glucose measurement (mass/volume) 203 mg/dL 70-105 Serum or plasma calcium measurement (mass/volume) 8.4 mg/dL 8.5-10.1 Serum or plasma total bilirubin measurement (mass/volume) 0.3 mg/dL 0.1-1.0 Serum or plasma alkaline phosphatase measurement (enzymatic activity/volume) 52 U/L 40-136 Serum or plasma aspartate aminotransferase measurement (enzymatic activity/ volume) 12 U/L 5-34 Serum or plasma alanine aminotransferase measurement (enzymatic activity/volume ) 7 U/L 0-55 Serum or plasma protein measurement (mass/volume) 5.7 g/dL 6.4-8.2 Serum or plasma albumin measurement (mass/volume) 2.9 g/dL 3.2-4.5 THYROID STIMULATING HORMONE - 09/27/16 05:30 THYROID STIMULATING HORMONE 1.35 u[iU]/mL 0.35-4.94 Capillary blood glucose measurement by glucometer (mass/volume) - 09/27/16 12: 35 Capillary blood glucose measurement by glucometer (mass/volume) 356 mg/dL 70-110 Capillary blood glucose measurement by glucometer (mass/volume) - 09/27/16 16: 31 Capillary blood glucose measurement by glucometer (mass/volume) 193 mg/dL 70-110 Capillary blood glucose measurement by glucometer (mass/volume) - 09/27/16 21: 37 Capillary blood glucose measurement by glucometer (mass/volume) 199 mg/dL 70-110 Capillary blood glucose measurement by glucometer (mass/volume) - 09/28/16 05: 46 Capillary blood glucose measurement by glucometer (mass/volume) 219 mg/dL 70-110 Complete blood count (CBC) with automated white blood cell (WBC) differential - 09/28/16 06:18 Blood leukocytes automated count (number/volume) 2.9 10*3/ uL 4.3-11.0 Blood erythrocytes automated count (number/volume) 2.81 10*6 /uL 4.35-5.85 Venous blood hemoglobin measurement (mass/volume) 8.5 g/dL 11.5-16.0 Blood hematocrit (volume fraction) 27 % 35-52 Automated erythrocyte mean corpuscular volume 95 [foz_us] 80-99 Automated erythrocyte mean corpuscular hemoglobin (mass per erythrocyte) 30 pg 25-34 Automated erythrocyte mean corpuscular hemoglobin concentration measurement ( mass/volume) 32 g/dL 32-36 Automated erythrocyte distribution width ratio 17.2 % 10.0-14.5 Automated blood platelet count (count/volume) 288 10*3/uL 130-400 Automated blood platelet mean volume measurement 9.4 [foz_us ] 7.4-10.4 Automated blood neutrophils/100 leukocytes 91 % 42-75 Automated blood lymphocytes/100 leukocytes 8 % 12-44 Blood monocytes/100 leukocytes 1 % 0-12 Automated blood eosinophils/100 leukocytes 0 % 0-10 Automated blood basophils/100 leukocytes 0 % 0-10 Blood neutrophils automated count (number/volume) 2.6 10*3 1.8-7.8 Blood lymphocytes automated count (number/volume) 0.2 10*3 1.0-4.0 Blood monocytes automated count (number/volume) 0.0 10*3 0.0-1.0 Automated eosinophil count 0.0 10*3/uL 0.0-0.3 Automated blood basophil count (count/volume) 0.0 10*3/uL 0.0-0.1 Comprehensive metabolic panel - 09/28/16 06:18 Serum or plasma sodium measurement (moles/volume) 136 mmol/ L 135-145 Serum or plasma potassium measurement (moles/volume) 3.6 mmol/L 3.6-5.0 Serum or plasma chloride measurement (moles/volume) 105 mmol /L 98-107 Carbon dioxide 23 mmol/L 21-32 Serum or plasma anion gap determination (moles/volume) 8 mmol/L 5-14 Serum or plasma urea nitrogen measurement (mass/volume) 11 mg/dL 7-18 Serum or plasma creatinine measurement (mass/volume) 0.61 mg /dL 0.60-1.30 Serum or plasma urea nitrogen/creatinine mass ratio 18 NRG Serum or plasma creatinine measurement with calculation of estimated glomerular filtration rate > NRG Serum or plasma glucose measurement (mass/volume) 193 mg/dL 70-105 Serum or plasma calcium measurement (mass/volume) 8.2 mg/dL 8.5-10.1 Serum or plasma total bilirubin measurement (mass/volume) 0.2 mg/dL 0.1-1.0 Serum or plasma alkaline phosphatase measurement (enzymatic activity/volume) 46 U/L 40-136 Serum or plasma aspartate aminotransferase measurement (enzymatic activity/ volume) 11 U/L 5-34 Serum or plasma alanine aminotransferase measurement (enzymatic activity/volume ) 12 U/L 0-55 Serum or plasma protein measurement (mass/volume) 5.6 g/dL 6.4-8.2 Serum or plasma albumin measurement (mass/volume) 2.8 g/dL 3.2-4.5 Capillary blood glucose measurement by glucometer (mass/volume) - 09/28/16 11: 26 Capillary blood glucose measurement by glucometer (mass/volume) 230 mg/dL 70-110 Capillary blood glucose measurement by glucometer (mass/volume) - 09/28/16 16: 11 Capillary blood glucose measurement by glucometer (mass/volume) 171 mg/dL 70-110 Capillary blood glucose measurement by glucometer (mass/volume) - 09/28/16 20: 55 Capillary blood glucose measurement by glucometer (mass/volume) 214 mg/dL 70-110 Complete blood count (CBC) with automated white blood cell (WBC) differential - 09/29/16 06:00 Blood leukocytes automated count (number/volume) 3.4 10*3/ uL 4.3-11.0 Blood erythrocytes automated count (number/volume) 2.83 10*6 /uL 4.35-5.85 Venous blood hemoglobin measurement (mass/volume) 8.5 g/dL 11.5-16.0 Blood hematocrit (volume fraction) 27 % 35-52 Automated erythrocyte mean corpuscular volume 95 [foz_us] 80-99 Automated erythrocyte mean corpuscular hemoglobin (mass per erythrocyte) 30 pg 25-34 Automated erythrocyte mean corpuscular hemoglobin concentration measurement ( mass/volume) 32 g/dL 32-36 Automated erythrocyte distribution width ratio 17.0 % 10.0-14.5 Automated blood platelet count (count/volume) 305 10*3/uL 130-400 Automated blood platelet mean volume measurement 8.7 [foz_us ] 7.4-10.4 Automated blood neutrophils/100 leukocytes 82 % 42-75 Automated blood lymphocytes/100 leukocytes 16 % 12-44 Blood monocytes/100 leukocytes 2 % 0-12 Automated blood eosinophils/100 leukocytes 0 % 0-10 Automated blood basophils/100 leukocytes 0 % 0-10 Blood neutrophils automated count (number/volume) 2.8 10*3 1.8-7.8 Blood lymphocytes automated count (number/volume) 0.5 10*3 1.0-4.0 Blood monocytes automated count (number/volume) 0.1 10*3 0.0-1.0 Automated eosinophil count 0.0 10*3/uL 0.0-0.3 Automated blood basophil count (count/volume) 0.0 10*3/uL 0.0-0.1 Comprehensive metabolic panel - 09/29/16 06:00 Serum or plasma sodium measurement (moles/volume) 139 mmol/ L 135-145 Serum or plasma potassium measurement (moles/volume) 3.7 mmol/L 3.6-5.0 Serum or plasma chloride measurement (moles/volume) 106 mmol /L 98-107 Carbon dioxide 24 mmol/L 21-32 Serum or plasma anion gap determination (moles/volume) 9 mmol/L 5-14 Serum or plasma urea nitrogen measurement (mass/volume) 12 mg/dL 7-18 Serum or plasma creatinine measurement (mass/volume) 0.61 mg /dL 0.60-1.30 Serum or plasma urea nitrogen/creatinine mass ratio 20 NRG Serum or plasma creatinine measurement with calculation of estimated glomerular filtration rate > NRG Serum or plasma glucose measurement (mass/volume) 127 mg/dL 70-105 Serum or plasma calcium measurement (mass/volume) 7.9 mg/dL 8.5-10.1 Serum or plasma total bilirubin measurement (mass/volume) 0.2 mg/dL 0.1-1.0 Serum or plasma alkaline phosphatase measurement (enzymatic activity/volume) 50 U/L 40-136 Serum or plasma aspartate aminotransferase measurement (enzymatic activity/ volume) 42 U/L 5-34 Serum or plasma alanine aminotransferase measurement (enzymatic activity/volume ) 41 U/L 0-55 Serum or plasma protein measurement (mass/volume) 5.3 g/dL 6.4-8.2 Serum or plasma albumin measurement (mass/volume) 2.7 g/dL 3.2-4.5 Capillary blood glucose measurement by glucometer (mass/volume) - 09/29/16 06: 08 Capillary blood glucose measurement by glucometer (mass/volume) 144 mg/dL 70-110 Capillary blood glucose measurement by glucometer (mass/volume) - 09/29/16 10: 51 Capillary blood glucose measurement by glucometer (mass/volume) 161 mg/dL 70-110 Capillary blood glucose measurement by glucometer (mass/volume) - 09/29/16 16: 22 Capillary blood glucose measurement by glucometer (mass/volume) 110 mg/dL 70-110 Vancomycin trough - 09/29/16 19:15 Vancomycin trough 3.4 ug/mL 10.0-20.0 Capillary blood glucose measurement by glucometer (mass/volume) - 09/29/16 20: 52 Capillary blood glucose measurement by glucometer (mass/volume) 129 mg/dL 70-110 Complete blood count (CBC) with automated white blood cell (WBC) differential - 09/30/16 05:30 Blood leukocytes automated count (number/volume) 4.5 10*3/ uL 4.3-11.0 Blood erythrocytes automated count (number/volume) 3.22 10*6 /uL 4.35-5.85 Venous blood hemoglobin measurement (mass/volume) 9.6 g/dL 11.5-16.0 Blood hematocrit (volume fraction) 31 % 35-52 Automated erythrocyte mean corpuscular volume 96 [foz_us] 80-99 Automated erythrocyte mean corpuscular hemoglobin (mass per erythrocyte) 30 pg 25-34 Automated erythrocyte mean corpuscular hemoglobin concentration measurement ( mass/volume) 31 g/dL 32-36 Automated erythrocyte distribution width ratio 17.2 % 10.0-14.5 Automated blood platelet count (count/volume) 335 10*3/uL 130-400 Automated blood platelet mean volume measurement 8.3 [foz_us ] 7.4-10.4 Automated blood neutrophils/100 leukocytes 65 % 42-75 Automated blood lymphocytes/100 leukocytes 28 % 12-44 Blood monocytes/100 leukocytes 6 % 0-12 Automated blood eosinophils/100 leukocytes 1 % 0-10 Automated blood basophils/100 leukocytes 0 % 0-10 Blood neutrophils automated count (number/volume) 2.9 10*3 1.8-7.8 Blood lymphocytes automated count (number/volume) 1.3 10*3 1.0-4.0 Blood monocytes automated count (number/volume) 0.3 10*3 0.0-1.0 Automated eosinophil count 0.1 10*3/uL 0.0-0.3 Automated blood basophil count (count/volume) 0.0 10*3/uL 0.0-0.1 Whole blood basic metabolic panel - 09/30/16 05:30 Serum or plasma sodium measurement (moles/volume) 140 mmol/ L 135-145 Serum or plasma potassium measurement (moles/volume) 3.8 mmol/L 3.6-5.0 Serum or plasma chloride measurement (moles/volume) 107 mmol /L 98-107 Carbon dioxide 26 mmol/L 21-32 Serum or plasma anion gap determination (moles/volume) 7 mmol/L 5-14 Serum or plasma urea nitrogen measurement (mass/volume) 12 mg/dL 7-18 Serum or plasma creatinine measurement (mass/volume) 0.64 mg /dL 0.60-1.30 Serum or plasma urea nitrogen/creatinine mass ratio 19 NRG Serum or plasma creatinine measurement with calculation of estimated glomerular filtration rate > NRG Serum or plasma glucose measurement (mass/volume) 73 mg/dL 70-105 Serum or plasma calcium measurement (mass/volume) 7.7 mg/dL 8.5-10.1 Capillary blood glucose measurement by glucometer (mass/volume) - 09/30/16 11: 50 Capillary blood glucose measurement by glucometer (mass/volume) 98 mg/dL 70-110 Capillary blood glucose measurement by glucometer (mass/volume) - 09/30/16 17: 04 Capillary blood glucose measurement by glucometer (mass/volume) 140 mg/dL 70-110 Capillary blood glucose measurement by glucometer (mass/volume) - 09/30/16 21: 16 Capillary blood glucose measurement by glucometer (mass/volume) 190 mg/dL 70-110 Capillary blood glucose measurement by glucometer (mass/volume) - 10/01/16 06: 17 Capillary blood glucose measurement by glucometer (mass/volume) 139 mg/dL 70-110 Vancomycin trough - 10/01/16 06:52 Vancomycin trough 9.4 ug/mL 10.0-20.0 Capillary blood glucose measurement by glucometer (mass/volume) - 10/01/16 12: 23 Capillary blood glucose measurement by glucometer (mass/volume) 108 mg/dL 70-110 Capillary blood glucose measurement by glucometer (mass/volume) - 10/01/16 16: 08 Capillary blood glucose measurement by glucometer (mass/volume) 186 mg/dL 70-110 Capillary blood glucose measurement by glucometer (mass/volume) - 10/01/16 20: 43 Capillary blood glucose measurement by glucometer (mass/volume) 187 mg/dL 70-110 Capillary blood glucose measurement by glucometer (mass/volume) - 10/02/16 05: 37 Capillary blood glucose measurement by glucometer (mass/volume) 105 mg/dL 70-110 Capillary blood glucose measurement by glucometer (mass/volume) - 10/02/16 11: 51 Capillary blood glucose measurement by glucometer (mass/volume) 90 mg/dL 70-110 Capillary blood glucose measurement by glucometer (mass/volume) - 10/02/16 16: 20 Capillary blood glucose measurement by glucometer (mass/volume) 139 mg/dL 70-110 Capillary blood glucose measurement by glucometer (mass/volume) - 10/02/16 22: 16 Capillary blood glucose measurement by glucometer (mass/volume) 111 mg/dL 70-110 Capillary blood glucose measurement by glucometer (mass/volume) - 10/03/16 06: 16 Capillary blood glucose measurement by glucometer (mass/volume) 87 mg/dL 70-110 Complete blood count (CBC) with automated white blood cell (WBC) differential - 10/03/16 07:00 Blood leukocytes automated count (number/volume) 7.3 10*3/ uL 4.3-11.0 Blood erythrocytes automated count (number/volume) 3.50 10*6 /uL 4.35-5.85 Venous blood hemoglobin measurement (mass/volume) 10.4 g/dL 11.5-16.0 Blood hematocrit (volume fraction) 33 % 35-52 Automated erythrocyte mean corpuscular volume 95 [foz_us] 80-99 Automated erythrocyte mean corpuscular hemoglobin (mass per erythrocyte) 30 pg 25-34 Automated erythrocyte mean corpuscular hemoglobin concentration measurement ( mass/volume) 31 g/dL 32-36 Automated erythrocyte distribution width ratio 17.4 % 10.0-14.5 Automated blood platelet count (count/volume) 251 10*3/uL 130-400 Automated blood platelet mean volume measurement 8.7 [foz_us ] 7.4-10.4 Automated blood neutrophils/100 leukocytes 64 % 42-75 Automated blood lymphocytes/100 leukocytes 20 % 12-44 Blood monocytes/100 leukocytes 14 % 0-12 Automated blood eosinophils/100 leukocytes 1 % 0-10 Automated blood basophils/100 leukocytes 1 % 0-10 Blood neutrophils automated count (number/volume) 4.7 10*3 1.8-7.8 Blood lymphocytes automated count (number/volume) 1.4 10*3 1.0-4.0 Blood monocytes automated count (number/volume) 1.1 10*3 0.0-1.0 Automated eosinophil count 0.1 10*3/uL 0.0-0.3 Automated blood basophil count (count/volume) 0.1 10*3/uL 0.0-0.1 Whole blood basic metabolic panel - 10/03/16 07:00 Serum or plasma sodium measurement (moles/volume) 139 mmol/ L 135-145 Serum or plasma potassium measurement (moles/volume) 3.7 mmol/L 3.6-5.0 Serum or plasma chloride measurement (moles/volume) 104 mmol /L 98-107 Carbon dioxide 25 mmol/L 21-32 Serum or plasma anion gap determination (moles/volume) 10 mmol/L 5-14 Serum or plasma urea nitrogen measurement (mass/volume) 6 mg /dL 7-18 Serum or plasma creatinine measurement (mass/volume) 0.57 mg /dL 0.60-1.30 Serum or plasma urea nitrogen/creatinine mass ratio 11 NRG Serum or plasma creatinine measurement with calculation of estimated glomerular filtration rate > NRG Serum or plasma glucose measurement (mass/volume) 99 mg/dL 70-105 Serum or plasma calcium measurement (mass/volume) 8.2 mg/dL 8.5-10.1 Capillary blood glucose measurement by glucometer (mass/volume) - 10/03/16 11: 17 Capillary blood glucose measurement by glucometer (mass/volume) 95 mg/dL 70-110 Complete blood count (CBC) with automated white blood cell (WBC) differential - 11/17/16 12:33 Blood leukocytes automated count (number/volume) 5.5 10*3/ uL 4.3-11.0 Blood erythrocytes automated count (number/volume) 4.29 10*6 /uL 4.35-5.85 Venous blood hemoglobin measurement (mass/volume) 11.7 g/dL 11.5-16.0 Blood hematocrit (volume fraction) 38 % 35-52 Automated erythrocyte mean corpuscular volume 88 [foz_us] 80-99 Automated erythrocyte mean corpuscular hemoglobin (mass per erythrocyte) 27 pg 25-34 Automated erythrocyte mean corpuscular hemoglobin concentration measurement ( mass/volume) 31 g/dL 32-36 Automated erythrocyte distribution width ratio 15.4 % 10.0-14.5 Automated blood platelet count (count/volume) 347 10*3/uL 130-400 Automated blood platelet mean volume measurement 9.1 [foz_us ] 7.4-10.4 Automated blood neutrophils/100 leukocytes 61 % 42-75 Automated blood lymphocytes/100 leukocytes 24 % 12-44 Blood monocytes/100 leukocytes 12 % 0-12 Automated blood eosinophils/100 leukocytes 3 % 0-10 Automated blood basophils/100 leukocytes 1 % 0-10 Blood neutrophils automated count (number/volume) 3.4 10*3 1.8-7.8 Blood lymphocytes automated count (number/volume) 1.3 10*3 1.0-4.0 Blood monocytes automated count (number/volume) 0.7 10*3 0.0-1.0 Automated eosinophil count 0.1 10*3/uL 0.0-0.3 Automated blood basophil count (count/volume) 0.0 10*3/uL 0.0-0.1 PT panel in platelet poor plasma by coagulation assay - 11/17/16 12:33 Prothrombin time (PT) in platelet poor plasma by coagulation assay 12.1 s 12.2-14.7 INR in platelet poor plasma or blood by coagulation assay 0.9 0.8-1.4 Activated partial thromboplastin time (aPTT) in platelet poor plasma bycoagulation assay - 11/17/16 12:33 Activated partial thromboplastin time (aPTT) in platelet poor plasma bycoagulation assay 25 s 24-35 Fibrin D-dimer FEU measurement in platelet poor plasma (mass/volume) - 12:33 Fibrin D-dimer FEU measurement in platelet poor plasma (mass/volume) 0.62 ug/mL 0.00-0.49 Comprehensive metabolic panel - 11/17/16 12:33 Serum or plasma sodium measurement (moles/volume) 138 mmol/ L 135-145 Serum or plasma potassium measurement (moles/volume) 3.9 mmol/L 3.6-5.0 Serum or plasma chloride measurement (moles/volume) 101 mmol /L 98-107 Carbon dioxide 29 mmol/L 21-32 Serum or plasma anion gap determination (moles/volume) 8 mmol/L 5-14 Serum or plasma urea nitrogen measurement (mass/volume) 10 mg/dL 7-18 Serum or plasma creatinine measurement (mass/volume) 0.69 mg /dL 0.60-1.30 Serum or plasma urea nitrogen/creatinine mass ratio 14 NRG Serum or plasma creatinine measurement with calculation of estimated glomerular filtration rate > NRG Serum or plasma glucose measurement (mass/volume) 105 mg/dL 70-105 Serum or plasma calcium measurement (mass/volume) 9.1 mg/dL 8.5-10.1 Serum or plasma total bilirubin measurement (mass/volume) 0.3 mg/dL 0.1-1.0 Serum or plasma alkaline phosphatase measurement (enzymatic activity/volume) 95 U/L 40-136 Serum or plasma aspartate aminotransferase measurement (enzymatic activity/ volume) 14 U/L 5-34 Serum or plasma alanine aminotransferase measurement (enzymatic activity/volume ) 7 U/L 0-55 Serum or plasma protein measurement (mass/volume) 7.4 g/dL 6.4-8.2 Serum or plasma albumin measurement (mass/volume) 3.6 g/dL 3.2-4.5 Serum or plasma troponin i.cardiac measurement (mass/volume) - 11/17/16 12:33 Serum or plasma troponin i.cardiac measurement (mass/volume) < ng/mL <0.30 Capillary blood glucose measurement by glucometer (mass/volume) - 11/17/16 12: 50 Capillary blood glucose measurement by glucometer (mass/volume) 102 mg/dL 70-110 Complete blood count (CBC) with automated white blood cell (WBC) differential - 11/18/16 03:53 Blood leukocytes automated count (number/volume) 5.4 10*3/ uL 4.3-11.0 Blood erythrocytes automated count (number/volume) 3.60 10*6 /uL 4.35-5.85 Venous blood hemoglobin measurement (mass/volume) 9.8 g/dL 11.5-16.0 Blood hematocrit (volume fraction) 32 % 35-52 Automated erythrocyte mean corpuscular volume 89 [foz_us] 80-99 Automated erythrocyte mean corpuscular hemoglobin (mass per erythrocyte) 27 pg 25-34 Automated erythrocyte mean corpuscular hemoglobin concentration measurement ( mass/volume) 31 g/dL 32-36 Automated erythrocyte distribution width ratio 15.3 % 10.0-14.5 Automated blood platelet count (count/volume) 314 10*3/uL 130-400 Automated blood platelet mean volume measurement 9.4 [foz_us ] 7.4-10.4 Automated blood neutrophils/100 leukocytes 85 % 42-75 Automated blood lymphocytes/100 leukocytes 14 % 12-44 Blood monocytes/100 leukocytes 1 % 0-12 Automated blood eosinophils/100 leukocytes 0 % 0-10 Automated blood basophils/100 leukocytes 0 % 0-10 Blood neutrophils automated count (number/volume) 4.6 10*3 1.8-7.8 Blood lymphocytes automated count (number/volume) 0.8 10*3 1.0-4.0 Blood monocytes automated count (number/volume) 0.1 10*3 0.0-1.0 Automated eosinophil count 0.0 10*3/uL 0.0-0.3 Automated blood basophil count (count/volume) 0.0 10*3/uL 0.0-0.1 Whole blood basic metabolic panel - 11/18/16 03:53 Serum or plasma sodium measurement (moles/volume) 137 mmol/ L 135-145 Serum or plasma potassium measurement (moles/volume) 4.3 mmol/L 3.6-5.0 Serum or plasma chloride measurement (moles/volume) 105 mmol /L 98-107 Carbon dioxide 21 mmol/L 21-32 Serum or plasma anion gap determination (moles/volume) 11 mmol/L 5-14 Serum or plasma urea nitrogen measurement (mass/volume) 11 mg/dL 7-18 Serum or plasma creatinine measurement (mass/volume) 0.70 mg /dL 0.60-1.30 Serum or plasma urea nitrogen/creatinine mass ratio 16 NRG Serum or plasma creatinine measurement with calculation of estimated glomerular filtration rate > NRG Serum or plasma glucose measurement (mass/volume) 171 mg/dL 70-105 Serum or plasma calcium measurement (mass/volume) 8.4 mg/dL 8.5-10.1 Magnesium - 11/18/16 03:53 Magnesium 1.9 mg/dL 1.8-2.4 Complete urinalysis with reflex to culture - 11/18/16 17:30 Urine color determination YELLOW NRG Urine clarity determination CLEAR NRG Urine pH measurement by test strip 6 5- 9 Specific gravity of urine by test strip 1.025 1.016-1.022 Urine protein assay by test strip, semi-quantitative NEGATIVE NEGATIVE Urine glucose detection by automated test strip NEGATIVE NEGATIVE Erythrocytes detection in urine sediment by light microscopy NEGATIVE NEGATIVE Urine ketones detection by automated test strip 1+ NEGATIVE Urine nitrite detection by test strip NEGATIVE NEGATIVE Urine total bilirubin detection by test strip NEGATIVE NEGATIVE Urine urobilinogen measurement by automated test strip (mass/volume) NORMAL NORMAL Urine leukocyte esterase detection by dipstick 1+ NEGATIVE Automated urine sediment erythrocyte count by microscopy (number/high power field) RARE NRG Automated urine sediment leukocyte count by microscopy (number/high power field ) [HPF] NRG Bacteria detection in urine sediment by light microscopy NEGATIVE NRG Squamous epithelial cells detection in urine sediment by light microscopy 25-50 NRG Crystals detection in urine sediment by light microscopy NONE NRG Casts detection in urine sediment by light microscopy NONE NRG Mucus detection in urine sediment by light microscopy SMALL NRG Complete urinalysis with reflex to culture NO NRG Encounters ACCT No. Visit Date/Time Discharge Status Pt. 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 [id number] 09/26/2016 18:05:00 2016 11:35:00 DIS Inpatient KERON RONDON DO [facility] 4TH SEPSIS,PNEUMONIA,LUNG CANCER ON CHEMO,DEHYDRATION [id number] 08/29/2016 13:25:00 2016 00:01:00 DIS Outpatient ANIKET DIMAS [facility] ONC [id number] 05/15/2016 10:27:00 2015 12:03:00 DIS Outpatient ANIKET DIMAS [facility] ONC [id number] 02/28/2016 10:02:00 2015 00:01:00 DIS Outpatient ANIKET DIMAS [facility] ONC [id number] 11/29/2015 09:23:00 2015 00:01:00 DIS Outpatient ANIKET DIMAS [facility] ONC [id number] 10/10/2015 16:17:00 2015 16:57:00 DIS Inpatient NELA DESAIKERON [facility] 4TH C LUNG;HYPERTENSION [id number] 10/07/2015 15:47:00 2015 17:45:00 DIS Emergency MARIA EUGENIA KIM MD [facility] ER SOA;DECREASED O2 SAT;HEADACHE [id number] 08/17/2015 09:31:00 2015 00:01:00 DIS Outpatient SALLY CORBETT MD [facility] ONC [id number] 07/05/2015 12:45:00 2014 23:59:59 CLS Outpatient RAMOS SWEENEY HRIS DEVELOPER [facility] ONC [id number] 06/27/2015 08:15:00 2014 10:40:00 DIS Inpatient MILAGRO BLANTON DO [facility] 4TH FALL WITH SUBARACHNOID HEMORRHAGE [id number] 06/25/2015 07:01:00 2014 11:07:00 DIS Outpatient KAY MAGAÑA DO [facility] SDC LUNG CA [id number] 06/23/2015 13:44:00 2014 23:59:59 CLS Outpatient KAY MAGAÑA DO [facility] PREOP PORT PLACEMENT [id number] 05/27/2015 08:25:00 2014 23:59:59 CLS Outpatient SALLY CORBETT MD [facility] RAD LUNG CA [id number] 05/25/2015 08:36:00 2014 23:59:59 CLS Outpatient TEDDY FLOYD DO [facility] RAD ADENOCARCINOMA [id number] 05/12/2015 11:56:00 2014 07:45:00 DIS Outpatient TEDDY FLOYD DO [facility] SDC COPD,LUNG MASS [id number] 05/10/2015 13:41:00 2014 23:59:59 CLS Outpatient TEDDY FLOYD DO [facility] PREOP COPD LUNG MASS [id number] 04/29/2015 05:30:00 2014 12:11:00 DIS Inpatient KERON RONDON DO [facility] 4TH ACUTE ON CHRONIC RESPIRATORY FAILURE;RUL MASS [id number] 08/26/2014 15:01:00 2014 23:59:59 CLS Outpatient KERON RONDON DO [facility] RAD UPPER ABD PULSATING AREA [id number] 12/16/2013 07:15:00 2013 10:05:00 DIS Emergency KANDI METZEGR, JAI Call [facility] ER SOA [id number] 01/20/2013 16:39:00 2012 23:59:59 CLS Outpatient [id number] 11/06/2016 09:57:00 ACT Outpatient ANIKET DIMAS [facility] ONC [id number] 08/22/2016 13:24:00 ACT Outpatient RAMOS SWEENEY HRIS DEVELOPER [facility] RAD LUNG CANCER [id number] 05/25/2016 11:23:00 ACT Outpatient RAMOS SWEENEY HRIS DEVELOPER [facility] CARD LUNG CANCER [id number] 03/20/2016 10:04:00 ACT Outpatient RAMOS SWEENEY HRIS DEVELOPER [facility] ONC [id number] 02/22/2016 10:00:00 ACT Outpatient RAMOS SWEENEY HRIS DEVELOPER [facility] ONC [id number] 02/15/2016 09:41:00 ACT Outpatient RAMOS SWEENEY HRIS DEVELOPER [facility] RAD LUNG CANCER [id number] 01/24/2016 10:05:00 ACT Outpatient RAMOS SWEENEY HRIS DEVELOPER [facility] ONC [id number] 10/26/2015 11:10:00 ACT Outpatient ANIKET DIMAS [facility] CARD LUNG CA [id number] 09/24/2012 10:26:00 Document Registration [id number] 05/13/2012 14:29:00 Document Registration [id number] 08/19/2011 17:09:00 Document Registration [id number] 05/02/2011 08:31:00 Document Registration
--- OUTSIDE RECORDS SUMMARY | 2016-12-10 08:42 | XMS REPORT | Continuity of Care Document ---
Author Author [facility] Organization [facility] Address Unknown Phone Unavailable Allergies Active Description Code Type Severity Reaction Onset Reported/Identified Relationship to Patient Clinical Status Yes benzonatate [id number] Drug Allergy Unknown N/A 06/27/2015 Yes pollen pollen Moderate N/A 09/26/2016 Yes cephalexin [id number] Drug Allergy Unknown N/A 09/26/2016 Medications Problems [...] CHEMOTHERAP 07/19/1202 ANIKET DIMAS Ot Z79.899 OTHER AUDIT SPEC (CURRENT) DRUG THERAPY 05/02/2011 Ot 491.21 OBSTR [...] Ot 496 CHR AIRWAY OBSTRUCT NEC 05/13/2015 TEDDY FLOYD DO Ot 786.09 RESPIRATORY ABNORM NEC 05/13/2015 TEDDY FLOYD DO Ot 786.6 CHEST SWELLING/MASS/LUMP 06/16/2015 CHELLE METZGER, SALLY Mondragon Ot C34.11 06/25/2015 KAY MAGAÑA DO Ot C34.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 06/25/2015 KAY MAGAÑA DO Ot C79.9 SECONDARY MALIGNANT NEOPLASM OF UNSPECIF 06/25/2015 KAY MAGAÑA DO Ot Z79.899 OTHER JAIL (CURRENT) DRUG THERAPY 06/28/2015 MILAGRO BLANTON DO [...] C34.90 09/02/2015 WINGANIKET N Ot C34.90 09/08/2015 WINGANIKET N Ot C34.11 09/08/2015 WINGANIKET SAMSON N [...] C34.11 09/20/2015 RAMOS SWEENEY Ot C34.11 09/20/2015 DEARING KAY DESAI Ot C34.90 09/20/2015 DEARING KAY DESAI Ot Z01.818 09/20/2015 WINGANIKET SAMSON [...] TYPE 2 DIABETES MELLITUS WITHOUT COMPLIC 10/10/2015 TATIANALENDER DO, KERON Mccurdy Ot F17.210 NICOTINE DEPENDENCE, [...] 10/20/2015 WING, BOBAN N Ot F17.210 10/20/2015 IWNG, BOBOSIRIS N Ot I10 10/20/2015 WINGDONAAN N [...] C34.11 10/26/2015 RAMOS SWEENEY Ot C34.11 10/26/2015 DEARING KAY DESAI Ot C34.90 10/26/2015 DEARING KAY DESAI Ot Z01.818 10/26/2015 WING, BOBAN [...] 11/30/2015 ANIKET DIMAS N Ot Z79.899 OTHER JAIL (CURRENT) DRUG THERAPY 12/01/2015 WINGDONAOSIRIS N Ot [...] 12/06/2015 WING, BOBAN N Ot Z79.899 OTHER JAIL (CURRENT) DRUG THERAPY 12/07/2015 WING BOBAN N [...] 12/07/2015 WING, BOBAN N Ot Z79.899 OTHER JAIL (CURRENT) DRUG THERAPY 01/24/2016 WINGANIKET N Ot [...] CHEMOTHERAP 01/24/2016 ANIKET DIMAS Ot Z79.899 OTHER AUDIT SPEC (CURRENT) DRUG THERAPY 01/25/2016 RAMOS SWEENEY [employer] MANAGER Ot C34.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 OF UPPER LOBE, RIGHT 01/25/2016 RAMOS SWEENEY [employer] C[employer]RE MANAGER Ot C79.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 01/25/2016 RAMOS SWEENEY S [employer] C[employer]RE MANAGER Ot E03.9 HYPOTHYROIDISM, UNSPECIFIED 01/25/2016 RAMOS SWEENEY S [employer] C[employer]RE MANAGER Ot E11.9 TYPE 2 DIABETES MELLITUS WITHOUT COMPLIC 01/25/2016 RAMOS SWEENEY S [employer] C[employer]RE MANAGER Ot E78.5 HYPERLIPIDEMIA, UNSPECIFIED 01/25/2016 RAMOS SWEENEY S [employer] C[employer] MANAGER Ot F17.210 NICOTINE DEPENDENCE, CIGARETTES, UNCOMPL 01/25/2016 RAMOS SWEENEY S [employer] MANAGER Ot I10 ESSENTIAL (PRIMARY) HYPERTENSION 01/25/2016 RAMOS SWEENEY S [employer] C[employer]RE MANAGER Ot J44.9 CHRONIC OBSTRUCTIVE PULMONARY DISEASE, U 01/25/2016 RAMOS SWEENEY S [employer] C[employer] MANAGER Ot Z79.899 OTHER JAIL (CURRENT) DRUG THERAPY 02/15/2016 RAMOS SWEENEY S [employer] C[employer]RE MANAGER Ot C34.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 OF UPPER LOBE, RIGHT 02/15/2016 RAMOS SWEENEY IN[employer] C[employer]RE MANAGER Ot C79.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 02/15/2016 RAMOS SWEENEY S [employer] C[employer]RE MANAGER Ot E03.9 HYPOTHYROIDISM, UNSPECIFIED 02/15/2016 RAMOS SWEENEY S [employer] C[employer]RE MANAGER Ot E11.9 TYPE 2 DIABETES MELLITUS WITHOUT COMPLIC 02/15/2016 RAMOS SWEENEY S [employer] C[employer]RE MANAGER Ot E78.5 HYPERLIPIDEMIA, UNSPECIFIED 02/15/2016 RAMOS SWEENEY S [employer] C[employer] MANAGER Ot F17.210 NICOTINE DEPENDENCE, CIGARETTES, UNCOMPL 02/15/2016 RAMOS SWEENEY S [employer] C[employer]RE MANAGER Ot I10 ESSENTIAL (PRIMARY) HYPERTENSION 02/15/2016 RAMOS SWEENEY S [employer] C[employer]RE MANAGER Ot J44.9 CHRONIC OBSTRUCTIVE PULMONARY DISEASE, U 02/15/2016 RAMOS SWEENEY S [employer] C[employer]RE MANAGER Ot Z79.899 OTHER JAIL (CURRENT) DRUG THERAPY 02/16/2016 RAMOS SWEENEY S [employer] C[employer]RE MANAGER Ot C34.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 OF UPPER LOBE, RIGHT 02/17/2016 RAMOS SWEENEY IN[employer] C[employer]RE MANAGER Ot C34.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 OF UPPER LOBE, [...] 02/22/2016 ANIKET DIMAS N Ot Z79.899 OTHER JAIL (CURRENT) DRUG THERAPY 02/24/2016 RAMOS SWEENEY [employer] C[employer] MANAGER Ot C34.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 OF UPPER LOBE, RIGHT 02/24/2016 RAMOS SWEENEY IN[employer] C[employer] MANAGER Ot C79.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 02/24/2016 RAMOS SWEENEY IN[employer] C[employer]RE MANAGER Ot E03.9 HYPOTHYROIDISM, UNSPECIFIED 02/24/2016 RAMOS SWEENEY IN[employer] C[employer] MANAGER Ot E11.9 TYPE 2 DIABETES MELLITUS WITHOUT COMPLIC 02/24/2016 RAMOS SWEENEYP Ot E78.5 HYPERLIPIDEMIA, UNSPECIFIED 02/24/2016 RAMOS SWEENEY [employer] MANAGER Ot F17.210 NICOTINE DEPENDENCE, CIGARETTES, UNCOMPL 02/24/2016 RAMOS SWEENEY [employer] MANAGER Ot I10 ESSENTIAL (PRIMARY) HYPERTENSION 02/24/2016 RAMOS SWEENEY IN[employer] C[employer] MANAGER Ot J44.9 CHRONIC OBSTRUCTIVE PULMONARY DISEASE, U 02/24/2016 RAMOS SWEENEY [employer] C[employer] MANAGER Ot Z79.899 OTHER AUDIT SPEC (CURRENT) DRUG THERAPY 03/05/2016 ANIKET DIMAS N [...] 03/05/2016 WING, BOBAN N Ot Z79.899 OTHER JAIL (CURRENT) DRUG THERAPY 03/08/2016 WING BOBAN N [...] CHEMOTHERAP 03/08/2016 WINGDONAAN N Ot Z79.899 OTHER JAIL (CURRENT) DRUG THERAPY 03/09/2016 RAMOS SWEENEY Ot [...] CHEMOTHERAP 03/11/2016 ANIKET DIMAS Ot Z79.899 OTHER JAIL (CURRENT) DRUG THERAPY 03/21/2016 RAMOS SWEENEY S [employer] MANAGER Ot C34.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 OF UPPER LOBE, RIGHT 03/21/2016 RAMOS SWEENEY S [employer] MANAGER Ot C79.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 03/21/2016 RAMOS SWEENEY S [employer] MANAGER Ot E03.9 HYPOTHYROIDISM, UNSPECIFIED 03/21/2016 RAMOS SWEENEY S [employer] MANAGER Ot E11.9 TYPE 2 DIABETES MELLITUS WITHOUT COMPLIC 03/21/2016 RAMOS SWEENEY S [employer] MANAGER Ot E78.5 HYPERLIPIDEMIA, UNSPECIFIED 03/21/2016 RAMOS SWEENEY S [employer] MANAGER Ot F17.210 NICOTINE DEPENDENCE, CIGARETTES, UNCOMPL 03/21/2016 RAMOS SWEENEY S [employer] MANAGER Ot I10 ESSENTIAL (PRIMARY) HYPERTENSION 03/21/2016 RAMOS SWEENEY IN[employer] MANAGER Ot J44.9 CHRONIC OBSTRUCTIVE PULMONARY DISEASE, U 03/21/2016 RAMOS SWEENEY S [employer] MANAGER Ot Z79.899 OTHER JAIL (CURRENT) DRUG THERAPY 03/30/2016 RAMOS SWEENEY S [employer] MANAGER Ot C34.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 OF UPPER LOBE, RIGHT 03/30/2016 RAMOS SWEENEY S [employer] MANAGER Ot C79.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 03/30/2016 RAMOS SWEENEY S [employer] MANAGER Ot E03.9 HYPOTHYROIDISM, UNSPECIFIED 03/30/2016 RAMOS SWEENEY S [employer] MANAGER Ot E11.9 TYPE 2 DIABETES MELLITUS WITHOUT COMPLIC 03/30/2016 RAMOS SWEENEY S [employer] MANAGER Ot E78.5 HYPERLIPIDEMIA, UNSPECIFIED 03/30/2016 RAMOS SWEENEY S [employer] MANAGER Ot F17.210 NICOTINE DEPENDENCE, CIGARETTES, UNCOMPL 03/30/2016 RAMOS SWEENEY S [employer] MANAGER Ot I10 ESSENTIAL (PRIMARY) HYPERTENSION 03/30/2016 RAMOS SWEENEY IN[employer] C[employer] MANAGER Ot J44.9 CHRONIC OBSTRUCTIVE PULMONARY DISEASE, U 03/30/2016 RAMOS SWEENEY [employer] C[employer] MANAGER Ot Z79.899 OTHER AUDIT SPEC (CURRENT) DRUG THERAPY 03/31/2016 WING, BOBAN N [...] 03/31/2016 WING, BOBAN N Ot Z79.899 OTHER AUDIT SPEC (CURRENT) DRUG THERAPY 04/02/2016 WNIG, BOBAN N Ot C34.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 OF [...] 04/02/2016 WING, BOBAN N Ot Z79.899 OTHER AUDIT SPEC (CURRENT) DRUG THERAPY 04/11/2016 RAMOS SWEENEY S [employer] MANAGER Ot C34.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 OF UPPER LOBE, RIGHT 04/11/2016 RAMOS SWEENEY [employer] MANAGER Ot C79.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 04/11/2016 RAMOS SWEENEY [employer] MANAGER Ot E03.9 HYPOTHYROIDISM, UNSPECIFIED 04/11/2016 RAMOS SWEENEY [employer] MANAGER Ot E11.9 TYPE 2 DIABETES MELLITUS WITHOUT COMPLIC 04/11/2016 RAMOS SWEENEY [employer] MANAGER Ot E78.5 HYPERLIPIDEMIA, UNSPECIFIED 04/11/2016 RAMOS SWEENEY [employer] MANAGER Ot F17.210 NICOTINE DEPENDENCE, CIGARETTES, UNCOMPL 04/11/2016 RAMOS SWEENEY [employer] MANAGER Ot I10 ESSENTIAL (PRIMARY) HYPERTENSION 04/11/2016 RAMOS SWEENEY [employer] MANAGER Ot J44.9 CHRONIC OBSTRUCTIVE PULMONARY DISEASE, U 04/11/2016 SWEENEYRAMOS Call [employer] MANAGER Ot Z79.899 OTHER AUDIT SPEC (CURRENT) DRUG THERAPY 05/15/2016 ANIKET DIMAS Eduar [...] CHEMOTHERAP 05/15/2016 ANIKET DIMAS Ot Z79.899 OTHER JAIL (CURRENT) DRUG THERAPY 05/26/2016 Ot 305.1 TOBACCO [...] I10 ESSENTIAL (PRIMARY) HYPERTENSION 05/26/2016 RAMOS SWEENEY [employer] MANAGER Ot J44.9 CHRONIC OBSTRUCTIVE PULMONARY DISEASE, U 05/26/2016 RAMOS SWEENEY [employer] MANAGER Ot Z79.899 OTHER AUDIT SPEC (CURRENT) DRUG THERAPY 05/26/2016 RAMOS SWEENEY [employer] C[employer] MANAGER Ot C34.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 OF UPPER LOBE, RIGHT 05/26/2016 RAMOS SWEENEY IN[employer] C[employer] MANAGER Ot C34.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 OF UPPER LOBE, RIGHT 05/26/2016 RAMOS SWEENEY [employer] MANAGER Ot C79.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 05/26/2016 RAMOS SWEENEY [employer] MANAGER Ot E03.9 HYPOTHYROIDISM, UNSPECIFIED 05/26/2016 RAMOS SWEENEY IN[employer] MANAGER Ot E11.9 TYPE 2 DIABETES MELLITUS WITHOUT COMPLIC 05/26/2016 RAMOS SWEENEY [employer] MANAGER Ot E78.5 HYPERLIPIDEMIA, UNSPECIFIED 05/26/2016 RAMOS SWEENEY S [employer] MANAGER Ot F17.210 NICOTINE DEPENDENCE, CIGARETTES, UNCOMPL 05/26/2016 RAMOS SWEENEY [employer] MANAGER Ot I10 ESSENTIAL (PRIMARY) HYPERTENSION 05/26/2016 RAMOS SWEENEY IN[employer] C[employer] MANAGER Ot J44.9 CHRONIC OBSTRUCTIVE PULMONARY DISEASE, U 05/26/2016 RAMOS SWEENEY [employer] MANAGER Ot Z79.899 OTHER JAIL (CURRENT) DRUG THERAPY 05/26/2016 WINGANIKET SAMSON N [...] 05/26/2016 ANIKET DIMAS N Ot Z79.899 OTHER AUDIT SPEC (CURRENT) DRUG THERAPY 05/26/2016 SWEENEYRAMOS Call S [employer] MANAGER Ot C34.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 OF UPPER LOBE, RIGHT 05/26/2016 SWEENEYRAMOS Call S [employer]RE MANAGER Ot C79.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 05/26/2016 RAMOS SWEENEY [employer] C[employer]RE MANAGER Ot E03.9 HYPOTHYROIDISM, UNSPECIFIED 05/26/2016 SWEENEYRAMOS Call S [employer] MANAGER Ot E11.9 TYPE 2 DIABETES MELLITUS WITHOUT COMPLIC 05/26/2016 SWEENEYRAMOS Call S [employer]RE MANAGER Ot E78.5 HYPERLIPIDEMIA, UNSPECIFIED 05/26/2016 SWEENEYRAMOS S [employer] MANAGER Ot F17.210 NICOTINE DEPENDENCE, CIGARETTES, UNCOMPL 05/26/2016 SWEENEYRAMOS Call S [employer] MANAGER Ot I10 ESSENTIAL (PRIMARY) HYPERTENSION 05/26/2016 SWEENEYRAMOS Call S [employer] MANAGER Ot J44.9 CHRONIC OBSTRUCTIVE PULMONARY DISEASE, U 05/26/2016 SWEENEYRAMOS S [employer] MANAGER Ot Z79.899 OTHER AUDIT SPEC (CURRENT) DRUG THERAPY 05/26/2016 WINGANIKET SAMSON N [...] 05/26/2016 ANIKET DIMAS N Ot Z79.899 OTHER JAIL (CURRENT) DRUG THERAPY 05/26/2016 SWEENEYRAMOS Call S [employer] MANAGER Ot C34.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 OF UPPER LOBE, [...] 06/06/2016 ANIKET DIMAS N Ot Z79.899 OTHER JAIL (CURRENT) DRUG THERAPY 06/15/2016 RAMOS SWEENEY [employer] MANAGER Ot C34.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 OF UPPER LOBE, [...] 06/26/2016 ANIKET DIMAS N Ot Z79.899 OTHER JAIL (CURRENT) DRUG THERAPY 06/27/2016 Ot 305.1 TOBACCO [...] F17.200 NICOTINE DEPENDENCE, UNSPECIFIED, UNCOMP 06/27/2016 TEDDY FLYOD DO Ot R22.2 LOCALIZED SWELLING, MASS AND [...] DEPENDENCE, CIGARETTES, UNCOMPL 06/27/2016 SWEENEY, HILAH S [employer] MANAGER Ot I10 ESSENTIAL (PRIMARY) HYPERTENSION 06/27/2016 SWEENEYTARANCYNTHIA Call [employer] MANAGER Ot J44.9 CHRONIC OBSTRUCTIVE PULMONARY DISEASE, U 06/27/2016 TARAN SWEENEYCYNTHIA Call [employer] MANAGER Ot Z79.899 OTHER AUDIT SPEC (CURRENT) DRUG THERAPY 06/27/2016 SWEENEYTARANCYNTHIA Call [employer] MANAGER Ot C34.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 OF UPPER LOBE, RIGHT 06/27/2016 SWEENEYTARANCYNTHIA Jakub [employer]RE MANAGER Ot C34.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 OF UPPER LOBE, RIGHT 06/27/2016 ZAHRA RAMOS S [employer] C[employer]RE MANAGER Ot C79.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 06/27/2016 TARAN SWEENEYCYNTHIA Call [employer] MANAGER Ot E03.9 HYPOTHYROIDISM, UNSPECIFIED 06/27/2016 TARAN SWEENEYCYNTHIA S [employer]RE MANAGER Ot E11.9 TYPE 2 DIABETES MELLITUS WITHOUT COMPLIC 06/27/2016 TARAN SWEENEYCYNTHIA S [employer] MANAGER Ot E78.5 HYPERLIPIDEMIA, UNSPECIFIED 06/27/2016 RAMOS SWEENEY S [employer] C[employer] MANAGER Ot F17.210 NICOTINE DEPENDENCE, CIGARETTES, UNCOMPL 06/27/2016 TARAN SWEENEYCYNTHIA S [employer] MANAGER Ot I10 ESSENTIAL (PRIMARY) HYPERTENSION 06/27/2016 RAMOS SWEENEY IN[employer] C[employer]RE MANAGER Ot J44.9 CHRONIC OBSTRUCTIVE PULMONARY DISEASE, U 06/27/2016 TARAN SWEENEYCYNTHIA Jakub [employer] C[employer]RE MANAGER Ot Z79.899 OTHER AUDIT SPEC (CURRENT) DRUG THERAPY 06/27/2016 TARAN SWEENEYCYNTHIA Call [employer] MANAGER Ot C34.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 OF UPPER LOBE, RIGHT 06/27/2016 TARAN SWEENEYCYNTHIA Jakub [employer] C[employer]RE MANAGER Ot C79.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 06/27/2016 RAMOS SWEENEY Jakub [employer] C[employer]RE MANAGER Ot E03.9 HYPOTHYROIDISM, UNSPECIFIED 06/27/2016 TARAN SWEENEYCYNTHIA Call [employer] MANAGER Ot E11.9 TYPE 2 DIABETES MELLITUS WITHOUT COMPLIC 06/27/2016 RAMOS SWEENEY S [employer] C[employer]RE MANAGER Ot E78.5 HYPERLIPIDEMIA, UNSPECIFIED 06/27/2016 RAMOS SWEENEY S [employer] C[employer] MANAGER Ot F17.210 NICOTINE DEPENDENCE, CIGARETTES, UNCOMPL 06/27/2016 RAMOS SWEENEY S [employer] C[employer]RE MANAGER Ot I10 ESSENTIAL (PRIMARY) HYPERTENSION 06/27/2016 RAMOS SWEENEY IN[employer] C[employer]RE MANAGER Ot J44.9 CHRONIC OBSTRUCTIVE PULMONARY DISEASE, U 06/27/2016 RAMOS SWEENEY S [employer] C[employer]RE MANAGER Ot Z79.899 OTHER AUDIT SPEC (CURRENT) DRUG THERAPY 06/27/2016 SWEENEYRAMOS Call [employer] C[employer] MANAGER Ot C34.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 OF UPPER LOBE, RIGHT 06/27/2016 ANIKET DIMAS Ot C34.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 OF UPPER LOBE, RIGHT 06/27/2016 ANIKET DIMAS Ot C79.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 06/27/2016 ANIKET DIMAS Ot E03.9 HYPOTHYROIDISM, UNSPECIFIED 06/27/2016 ANIKET DIMAS Ot E11.9 TYPE 2 DIABETES MELLITUS WITHOUT COMPLIC 06/27/2016 ANIKET DIMAS Ot E78.5 HYPERLIPIDEMIA, UNSPECIFIED 06/27/2016 ANIKET IDMAS Ot F17.210 NICOTINE DEPENDENCE, CIGARETTES, UNCOMPL 06/27/2016 ANIKET DIMAS Ot I10 ESSENTIAL (PRIMARY) HYPERTENSION 06/27/2016 ANIKET DIMAS Ot J44.9 CHRONIC OBSTRUCTIVE PULMONARY DISEASE, U 06/27/2016 ANIKET DIMAS Ot Z51.11 ENCOUNTER FOR ANTINEOPLASTIC CHEMOTHERAP 06/27/2016 ANIKET DIMAS Ot Z79.899 OTHER JAIL (CURRENT) DRUG THERAPY 06/27/2016 SWEENEYRAMOS Call [facility] Ot C34.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 OF UPPER LOBE, [...] OF UPPER LOBE, RIGHT 06/27/2016 RAMOS SWEENEY [employer] MANAGER Ot C79.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 06/27/2016 RAMOS SWEENEY [employer] C[employer]RE MANAGER Ot E03.9 HYPOTHYROIDISM, UNSPECIFIED 06/27/2016 RAMOS SWEENEY [employer] MANAGER Ot E11.9 TYPE 2 DIABETES MELLITUS WITHOUT COMPLIC 06/27/2016 RAMOS SWEENEY [employer] C[employer] MANAGER Ot E78.5 HYPERLIPIDEMIA, UNSPECIFIED 06/27/2016 RAMOS SWEENEY [employer] C[employer] MANAGER Ot F17.210 NICOTINE DEPENDENCE, CIGARETTES, UNCOMPL 06/27/2016 RAMOS SWEENEY [employer] MANAGER Ot I10 ESSENTIAL (PRIMARY) HYPERTENSION 06/27/2016 RAMOS SWEENEYP Ot J44.9 CHRONIC OBSTRUCTIVE PULMONARY DISEASE, U 06/27/2016 RAMOS SWEENEY [employer] MANAGER Ot Z79.899 OTHER JAIL (CURRENT) DRUG THERAPY 06/27/2016 RAMOS SWEENEY IN[employer] C[employer]RE MANAGER Ot C34.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 OF UPPER LOBE, RIGHT 06/27/2016 RAMOS SWEENEY [employer] C[employer]RE MANAGER Ot C34.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 OF UPPER LOBE, RIGHT 06/27/2016 RAMOS SWEENEYP Ot C79.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 06/27/2016 SWEENEY, HILAH S [employer]RE MANAGER Ot E03.9 HYPOTHYROIDISM, UNSPECIFIED 06/27/2016 RAMOS SWEENEY [employer] C[employer] MANAGER Ot E11.9 TYPE 2 DIABETES MELLITUS WITHOUT COMPLIC 06/27/2016 RAMOS SWEENEY [employer] C[employer] MANAGER Ot E78.5 HYPERLIPIDEMIA, UNSPECIFIED 06/27/2016 RAMOS SWEENEY [employer] C[employer] MANAGER Ot F17.210 NICOTINE DEPENDENCE, CIGARETTES, UNCOMPL 06/27/2016 RAMOS SWEENEY [employer] C[employer] MANAGER Ot I10 ESSENTIAL (PRIMARY) HYPERTENSION 06/27/2016 RAMOS SWEENEY IN[employer] C[employer]RE MANAGER Ot J44.9 CHRONIC OBSTRUCTIVE PULMONARY DISEASE, U 06/27/2016 RAMOS SWEENEY IN[employer] C[employer]RE MANAGER Ot Z79.899 OTHER AUDIT SPEC (CURRENT) DRUG THERAPY 06/27/2016 RAMOS SWEENEY IN[employer] C[employer]RE MANAGER Ot C34.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 OF UPPER LOBE, RIGHT 06/27/2016 RAMOS SWEENEY IN[employer] C[employer]RE MANAGER Ot C79.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 06/27/2016 SWEENEY RAMOS Call [employer] C[employer]RE MANAGER Ot E03.9 HYPOTHYROIDISM, UNSPECIFIED 06/27/2016 RAMOS SWEENEY IN[employer] C[employer]RE MANAGER Ot E11.9 TYPE 2 DIABETES MELLITUS WITHOUT COMPLIC 06/27/2016 RAMOS SWEENEY IN[employer] C[employer]RE MANAGER Ot E78.5 HYPERLIPIDEMIA, UNSPECIFIED 06/27/2016 RAMOS SWEENEY IN[employer] C[employer]RE MANAGER Ot F17.210 NICOTINE DEPENDENCE, CIGARETTES, UNCOMPL 06/27/2016 RAMOS SWEENEY IN[employer] C[employer]RE MANAGER Ot I10 ESSENTIAL (PRIMARY) HYPERTENSION 06/27/2016 RAMOS SWEENEY IN[employer] CENTRE MANAGER Ot J44.9 CHRONIC OBSTRUCTIVE PULMONARY DISEASE, U 06/27/2016 RAMOS SWEENEY IN[employer] C[employer]RE MANAGER Ot Z79.899 OTHER JAIL (CURRENT) DRUG THERAPY 06/27/2016 SWEENEYRAMOS Call [employer] C[employer] MANAGER Ot C34.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 OF UPPER LOBE, [...] 06/27/2016 ANIKET DIMAS N Ot Z79.899 OTHER JAIL (CURRENT) DRUG THERAPY 06/27/2016 RAMOS SWEENEY IN[employer] C[employer]RE MANAGER Ot C34.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 OF UPPER LOBE, RIGHT 06/27/2016 ANIKET DIMAS N Ot C34.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 OF UPPER LOBE, RIGHT 06/27/2016 ANIKET DIMAS Eduar Ot C79.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11 ENCOUNTER FOR ANTINEOPLASTIC CHEMOTHERAP 09/06/2016 ANIKET DIMAS N Ot Z79.899 OTHER AUDIT SPEC (CURRENT) DRUG THERAPY 09/19/2016 RAMOS SWEENEY Ot [...] 09/26/2016 DONA DIMASOSIRIS N Ot Z79.899 OTHER AUDIT SPEC (CURRENT) DRUG THERAPY 09/26/2016 WING BOBAN N [...] 09/26/2016 WING DONAAN N Ot Z79.899 OTHER AUDIT SPEC (CURRENT) DRUG THERAPY 09/26/2016 WING ANIKET N [...] 09/26/2016 WING ANIKET N Ot Z79.899 OTHER AUDIT SPEC (CURRENT) DRUG THERAPY 09/28/2016 WING DONAAN N [...] 09/28/2016 WING ANIKET Witt Ot Z79.899 OTHER JAIL (CURRENT) DRUG THERAPY 10/03/2016 GELLENDER DO, KERON [...] RESUSCITATE 10/03/2016 GELLENDER KERON DESAI Ot Z79.84 AUDIT SPEC (CURRENT) USE OF ORAL HYPOGLYC 10/03/2016 KERON [...] DIMAS Ot F41.9 ANXIETY DISORDER, UNSPECIFIED 11/20/2016 ANIKET DIMAS Ot 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 [id number] 09/26/2016 18:05:00 2016 11:35:00 DIS Inpatient KERON RONDON DO [facility] 4TH SEPSIS,PNEUMONIA,LUNG CANCER ON CHEMO,DEHYDRATION [id number] 08/29/2016 13:25:00 2016 00:01:00 DIS Outpatient ANIKET DIMAS [facility] ONC [id number] 05/15/2016 10:27:00 2015 12:03:00 DIS Outpatient ANIKET DIMAS [facility] ONC [id number] 02/28/2016 10:02:00 2015 00:01:00 DIS Outpatient ANIKET DIMAS [facility] ONC [id number] 11/29/2015 09:23:00 2015 00:01:00 DIS Outpatient ANIKET DIMAS [facility] ONC [id number] 10/10/2015 16:17:00 2015 16:57:00 DIS Inpatient NELA DESAIKERON [facility] 4TH C LUNG;HYPERTENSION [id number] 10/07/2015 15:47:00 2015 17:45:00 DIS Emergency MARIA EUGENIA KIM MD [facility] ER SOA;DECREASED O2 SAT;HEADACHE [id number] 08/17/2015 09:31:00 2015 00:01:00 DIS Outpatient SALLY CORBETT MD [facility] ONC [id number] 07/05/2015 12:45:00 2014 23:59:59 CLS Outpatient RAMOS SWEENEY [employer] [facility] ONC [id number] 06/27/2015 08:15:00 2014 10:40:00 DIS Inpatient MILAGRO BLANTON DO [facility] 4TH FALL WITH SUBARACHNOID HEMORRHAGE [id number] 06/25/2015 07:01:00 2014 11:07:00 DIS Outpatient KAY MAGAÑA DO [facility] SDC LUNG CA [id number] 06/23/2015 13:44:00 2014 23:59:59 CLS Outpatient KAY MAGAÑA DO [facility] PREOP PORT PLACEMENT [id number] 05/27/2015 08:25:00 2014 23:59:59 CLS Outpatient SALLY CORBETT MD [facility] RAD LUNG CA [id number] 05/25/2015 08:36:00 2014 23:59:59 CLS Outpatient TEDDY FLOYD DO [facility] RAD ADENOCARCINOMA [id number] 05/12/2015 11:56:00 2014 07:45:00 DIS Outpatient TEDDY FLOYD DO [facility] SDC COPD,LUNG MASS [id number] 05/10/2015 13:41:00 2014 23:59:59 CLS Outpatient TEDDY FLOYD DO [facility] PREOP COPD LUNG MASS [id number] 04/29/2015 05:30:00 2014 12:11:00 DIS Inpatient KERON RONDON DO [facility] 4TH ACUTE ON CHRONIC RESPIRATORY FAILURE;RUL MASS [id number] 08/26/2014 15:01:00 2014 23:59:59 CLS Outpatient KERON RONDON DO [facility] RAD UPPER ABD PULSATING AREA [id number] 12/16/2013 07:15:00 2013 10:05:00 DIS Emergency KANDI METZGER, JAI Call [facility] ER SOA [id number] 01/20/2013 16:39:00 2012 23:59:59 CLS Outpatient [id number] 11/06/2016 09:57:00 ACT Outpatient ANIKET DIMAS [facility] ONC [id number] 08/22/2016 13:24:00 ACT Outpatient RAMOS SWEENEY [employer] [facility] RAD LUNG CANCER [id number] 05/25/2016 11:23:00 ACT Outpatient RAMOS SWEENEY [employer] [facility] CARD LUNG CANCER [id number] 03/20/2016 10:04:00 ACT Outpatient RAMOS SWEENEY [employer] [facility] ONC [id number] 02/22/2016 10:00:00 ACT Outpatient RAMOS SWEENEY [employer] [facility] ONC [id number] 02/15/2016 09:41:00 ACT Outpatient RAMOS SWEENEY [employer] [facility] RAD LUNG CANCER [id number] 01/24/2016 10:05:00 ACT Outpatient RAMOS S[employer]ENEY [employer] [facility] ONC [id number] 10/26/2015 11:10:00 ACT Outpatient ANIKET DIMAS [facility] CARD LUNG CA [id number] 09/24/2012 10:26:00 Document Registration [id number] 05/13/2012 14:29:00 Document Registration [id number] 08/19/2011 17:09:00 Document Registration [id number] 05/02/2011 08:31:00 Document Registration
== END 2016-11-20 12:20 | disposition hospice, home (50) | DRG 54 ==
LOC: EDUNIT# 11:58 → ER 11:59 → 4TH 13:13
PROVIDERS: ADMIT Internal Medicine Hematology & Oncology; ATTEND Internal Medicine Hematology & Oncology
DX: C79.31 Secondary malignant neoplasm of brain (principal); G93.6 Cerebral edema; C34.91 Malignant neoplasm of unspecified part of right bronchus or lung; R29.810 Facial weakness; R47.81 Slurred speech; R41.82 Altered mental status, unspecified; R53.1 Weakness; Z66 Do not resuscitate; J44.9 Chronic obstructive pulmonary disease, unspecified; F17.210 Nicotine dependence, cigarettes, uncomplicated; J30.2 Other seasonal allergic rhinitis; I10 Essential (primary) hypertension; E11.9 Type 2 diabetes mellitus without complications; E03.9 Hypothyroidism, unspecified; F41.9 Anxiety disorder, unspecified; E78.00 Pure hypercholesterolemia, unspecified; K59.09 Other constipation; M19.91 Primary osteoarthritis, unspecified site; M48.00 Spinal stenosis, site unspecified; R63.6 Underweight; Z79.84 Long term (current) use of oral hypoglycemic drugs
CPT/HCPCS: 36415; 70450; 71010; 80048; 80053; 81000; 82962; 83735; 84484; 85025; 85379; 85610; 85730; 93005; 93041; 94640; 94760